=== PATIENT | female | born 1965 | race Caucasian/White ===

== ENCOUNTER 2024-04-22 09:25 | Inpatient (IN) | payer BC, SELFPAY ==
[2024-04-22] VITALS (65 sets, daily range): BP systolic 81–135; BP diastolic 50–79; PULSE 39; BMI 19.4; BMI 21.2
--- NOTE | 2024-04-22 06:16 | ED.GENMED ---
History of Present Illness
General
Chief Complaint: Fever
Source: patient
Exam Limitations: none
Time Seen by Provider: 04/22/24 05:57
Nursing documentation reviewed up to this point in time: agreed with
History of Present Illness
History of Present Illness:
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 Patient states that since starting Tegretol for her underlying trigeminal neuralgia, she started to feel nauseous,
along with body ache and decreased appetite, after taking a new medication for 6 days. After speaking with her maintenance team member, her Tegretol was discontinued and hydrocortisone was increased to twice daily. However, her symptoms have worsened
since then. Patient reports subjective fever and chills. Denies coughing. Denies sore throat. Denies nasal congestion. Denies vomiting or diarrhea. Denies rash. Denies sick contact. Denies recent travel. Patient states that she has had
similar symptoms in the past, most recently 10 years ago.
Past History
Past History
ED Past Medical History: Other (Cleveland's disease)
ED Past Surgical History: None
Social History
Tobacco: Non-smoker
Alcohol: None
Drug: None
Living: with family
Employment: Employed
Family History
Family History: Cancer (Aunt breast cancer in her 50s, sister with breast cancer in her 40s, first cousin with ovarian cancer in her 40s)
Review of Systems
Review of Systems
Allergies reviewed?: Yes
All Other Systems: ROS reviewed and negative except as documented in HPI and ROS
Constitutional: Reports fever and chills
EENT: Reports no symptoms
Respiratory: Reports no symptoms
Cardiac: Reports no symptoms
ABD/GI: Reports nausea; Denies abdominal pain, vomiting or diarrhea
: Reports no symptoms; Denies dysuria or frequency
Musculoskeletal: Reports muscle pain
Skin: Reports no symptoms; Denies rash
Neurological: Reports weakness; Denies dizzy, headache or numbness
Phy Exam
Physical Exam
Physical Exam:
Physical Exam
General: mild distress, not acutely ill. afebrile. tachycardic.
Head: nc/at. eomi
Neck: supple. no meningeal signs. normal posterior pharynx
Heart: tachycardic, no murmur. equal radial pulses.
Lungs: no acute respiratory distress. clear bilaterally
Abdomen: normal bowel sounds. not tender.
Neuro: alert and oriented. no focal neurological deficits
Skin: no rash
Psychiatric: well kept. interactive and cooperative
Extremities: no edema. no calf tenderness.
Sepsis
Sepsis Screening
Sepsis Assessment: Sepsis
Sepsis Screen
Sepsis Screen: Sepsis
Date: 04/22/24
Time: 14:03
Course
Orders/Labs/Results
Orders:
Orders
04/22/24 Breakfast
Regular
At Your Request: Full Participation
04/22/24 06:05
Hydrocortisone Sod Succinate [Solu-Cortef] 100 mg IV NOW STA
04/22/24 06:07
0.9% Sodium Chloride 1000 ml [Nss] 1,000 ml IV BOLUS
04/22/24 06:30
COVID-19 Antigen Urgent
Source: Nasal Swab
Complete Blood Count/With Diff Urgent
Comprehensive Metabolic Panel Urgent
Cortisol, Random Urgent
Magnesium Urgent
TSH Urgent
Troponin I Urgent
04/22/24 07:42
0.9% Sodium Chloride 500 ml [Nss] 500 ml IV BOLUS
04/22/24 07:50
Acetaminophen [Tylenol] 650 mg PO NOW STA
04/22/24 07:55
Blood Culture Urgent
ANA Source: Blood/Venous
Specimen Description:
04/22/24 08:00
0.9% Sodium Chloride 500 ml [Nss] 500 ml IV 100 mls/hr
NORepinephrine 4 MG/250 ML [Levophed] 4 mg in 250 ml IV PER PROTOCOL
Initial dose in mcg/min, then titrate:: 5
Titrate to keep:: SBP > 90 mmHg
Titrate by mcg/min:: 1-2 mcg/min
Frequency of titrations (minutes):: 5
Maximum dose in ICU in mcg/min:: 30
Maximum dose in IMU in mcg/min:: 8
Maximum dose in IVU in mcg/min:: 4
Begin to taper infusion when:: Remained at goal for 4hrs
Taper by mcg/min:: 1-2 mcg/min
Frequency of taper (minutes) if patient maintains goal:: 30
Taper to off?: Yes
If infusion off & no longer maintaining goal:: Contact Provider
04/22/24 08:08
Blood Culture Urgent
AAN Source: Blood/Venous
Specimen Description:
Date Specimen was Collected: 04/22/24
Time Specimen was Collected: 08:06
04/22/24 08:43
Urinalysis Reflex To Culture Urgent
Date Specimen was Collected: 04/22/24
Time Specimen was Collected: 08:33
Urine Microscopic Reflex Cult Urgent
Urine Culture Urgent
ANA Source: U
Specimen Description:
Date Specimen was Collected: 04/22/24
Time Specimen was Collected: 08:33
04/22/24 08:54
CR Chest - 2 Views Stat
Comment:
Reason For Exam: fever
04/22/24 08:55
Admit/Transfer Patient As Directed
Co-Sign Provider:
Level of Care: Inpatient admission
Assign to:: ICU
Physician / Group: Hospitalist
Diagnosis: Adrenal crisis
Reason for Hospitalization: Adrenal crisis
Expected length of stay greater than two midnights?: Yes
ELOS- Estimated Length of Stay in days: 3
I certify the patient meets the requirements for IP care: Yes
04/22/24 08:58
PRN Pain Medication Management As Directed
May give lesser potent ordered pain med per pt: Yes
preference::
Protocol:: Medication orders for pain may be administered in a
manner that supports deferring to patient preference
when the pt is:
- Requesting an ordered lesser potent pain medication.
Least to most potent pain medications are defined
as: acetaminophen < NSAID < tramadol < opioids
(morphine, oxycodone, hydromorphone).
- Requesting a lesser dose of the same medication IF
ORDERED.
- Requesting a less intrusive route of administration
if both routes are prescribed by the provider (PO <
IV).
04/22/24 09:00
Code Status As Directed
Resuscitation Status: Full Code
04/22/24 09:04
0.9% Sodium Chloride 500 ml [Nss] 500 ml IV BOLUS
04/22/24 09:05
Add On- LAB Stat
Tests Added?: lactate
04/22/24 09:18
Lactic Acid Routine
Comment: ADD ON
04/22/24 10:32
ENDOCRINOLOGY CONSULT Routine
Consulting Provider: Maria Elena Paez
Was physician already notified: Yes
INFECTIOUS DISEASE CONSULT Routine
Consulting Provider: Keya Maradiaga
Was physician already notified: Yes
Activity As Directed
Activity Level: With Assistance
Activity As Directed
Activity Level: With Assistance
I&O [Intake/ Output] As Directed
Frequency: q12h
Intake/ Output As Directed
Frequency: Per unit guidelines
Precautions As Directed
Type of Precautions: Other
Comment: fall
Vital Signs As Directed
Frequency: Per unit guidelines
Weight As Directed
Frequency: Daily
DX Deep Vein Thrombosis Video Routine
04/22/24 18:00
Enoxaparin Sodium [Lovenox] 40 mg SC QPM
Abnormal Lab Results
04/22/24 04/22/24 04/22/24
06:30 08:43 09:18
WBC 19.0 H 10^3/uL
(4.8-10.8)
Hct 36.2 L %
(37.0-47.0)
Abs Immat Gran (auto) 0.2 H 10^3/uL
(0-0.05)
Absolute Neuts (auto) 15.0 H 10^3/uL
(1.4-6.5)
Absolute Monos (auto) 2.0 H 10^3/uL
(0.1-0.6)
Immature Gran % 0.8 H %
(0-0.5)
Neutrophils % 79.0 H %
(42.2-75.2)
Lymphocytes % 8.9 L %
(20.5-51.1)
Monocytes % 10.5 H %
(1.7-9.3)
Sodium 128 L mmol/L
(135-145)
Chloride 92 L mmol/L
(98-107)
Lactic Acid 0.6 L mmol/L
(0.7-2.0)
Total Protein 6.1 L g/dl
(6.3-8.2)
Urine Ketones Trace A
(Negative)
Ur Occult Blood Reflex 3+ A
(Negative)
Urine RBC 7-10 A /HPF
(0-2)
Urine Bacteria (Reflex) Many A
(Negative)
04/22/24 06:30
04/22/24 06:30
Vital Signs
Initial and Last Documented VS:
Initial Vital Signs
Temp Pulse Resp BP Pulse Ox
99.5 F 116 24 94/66 96
04/22/24 05:36 04/22/24 05:36 04/22/24 05:36 04/22/24 05:36 04/22/24 05:36
Last Documented Vital Signs
Temp Pulse Resp BP Pulse Ox
98.8 F 67 13 109/66 97
04/22/24 12:00 04/22/24 13:01 04/22/24 13:01 04/22/24 13:01 04/22/24 13:01
MDM/Problems Addressed
MDM/Problems Addressed:
History and exam concerning for likely adrenal crisis. Initial hypotension mildly improved with IV fluids and patient remains mentally competent. Patient will continue to receive IV fluids along with hydrocortisone. Patient will be admitted for
further evaluation and treatment, consideration to address to support, if she remains hypotensive.
Dr. Paez, endocrinology, notified via [place] text. Patient will be admitted to ICU for further evaluation and treatment, including continual treatment via iv hydrocortisone.
Critical care statement: A total of 40 minutes of critical care time was provided for this patient. This includes management of unstable vital signs, evaluation of the patient at bedside, reviewing the patient's pertinent medical records, discussion
with consultants, review of old EKGs and review of pertinent medical records. This time with separate from time utilized to perform the aforementioned documented procedures
*Critical Care Note
Total Time (30-74mins, 75-104mins- exclusive of procedures): 40 min
ED Attending Note
-
Portions of this chart may have been created with voice recognition software.� Occasional wrong word or��sound alike� substitutions may have occurred due to the inherent limitations of voice recognition software.
Discharge Plan
Departure
Patient Disposition: Admit
Date of Disposition: 04/22/24
Time of Disposition: 07:55
Admit to: ICU
Presentation/result/management discussed w/ accepting MD/DO: Hospitalist
Discharge Problem:
Adrenal crisis, Hyponatremia
Interventions
Interventions:
*Risk Screen - Suicide Last Done: 04/22/24 05:36
*General Assessment Last Done: 04/22/24 05:55
*Neglect/Abuse Screening Last Done: 04/22/24 05:40
ED- Fall Risk Assessment Last Done: 04/22/24 05:55
*ED COVID-19 Vaccine History Last Done: 04/22/24 10:45
*Nursing Disposition Last Done: 04/22/24 10:14
ED- Cardiac Assessment Last Done: 04/22/24 05:55
ED- Neurological Assessment Last Done: 04/22/24 05:55
ED- Pulmonary Assessment Last Done: 04/22/24 05:55
ED-Skin Assessment Last Done: 04/22/24 05:55
Discharge Date and Time
Discharge Date/Time: 04/22/24 10:20
[2024-04-22] MEDS: SOLU-CORTEF 100 MG IV ×3 (06:40→19:22)
[2024-04-22] MEDS: NSS 1000 IV (06:40)
[2024-04-22 06:54] LABS: % Basophils 0.2 % (0-2); % Eosinophils 0.6 % (0-6); % Immature Granulocytes 0.8 % (0-0.5); % Lymphocytes 8.9 % (20.5-51.1); % Monocytes 10.5 % (1.7-9.3); Absolute Eosinophils 0.1 10^3/uL (0-0.7); Absolute Immature Granulocytes 0.2 10^3/uL (0-0.05); Absolute Lymphocytes 1.7 10^3/uL (1.2-3.4); Hematocrit 36.2 % (37.0-47.0); Mean Corp Hgb Conc. 35.9 g/dL (33.0-37.0); Mean Corpuscular Hgb 30.2 pg (27.0-31.0); Mean Platelet Volume 8.5 fL (7.4-10.4); Nucleated Red Blood Cells % 0 %; Platelet Count 314 10^3/uL (130-400); Red Blood Cell Count 4.31 10^6/uL (4.20-5.40); Red Cell Dist. Width 12.4 % (11.5-14.5)
[2024-04-22 07:15] LABS: ALT (SGPT) 19 U/L (0-35); AST (SGOT) 20 U/L (14-36); Albumin 3.9 g/dl (3.5-5.0); Alkaline Phosphatase 69 U/L (38-126); Blood Urea Nitrogen 9 mg/dl (7-17); Calcium 8.9 mg/dl (8.4-10.2); Carbon Dioxide 22 mmol/L (22-30); Chloride 92 mmol/L (98-107); Estimated Creatinine Clearance 77 ml/min; Glucose 77 mg/dl (70-99); Magnesium 1.9 mg/dl (1.6-2.3); Potassium 3.8 mmol/L (3.5-5.1); Sodium 128 mmol/L (135-145); Total Bilirubin 0.7 mg/dl (0.2-1.3); Total Protein 6.1 g/dl (6.3-8.2); eGFR > 60.00
[2024-04-22 07:26] LABS: Troponin I < 0.012 ng/ml
[2024-04-22 07:35] LABS: COVID-19 Antigen Negative (Negative)
[2024-04-22 07:46] LABS: Glucose - Point of Care 77 mg/dl (70-99)
[2024-04-22 07:48] LABS: Cortisol, Random 1.8 ug/dl; TSH 1.46 uIU/ml (0.47-4.68)
[2024-04-22] MEDS: NSS 500 IV ×5 (07:57→17:42)
[2024-04-22] MEDS: TYLENOL 650 MG PO ×2 (07:58→17:48)
[2024-04-22] MEDS: LEVOPHED 250 IV ×2 (08:17→19:52)
[2024-04-22 08:51] LABS: Urine Albumin Negative (Neg - Trace); Urine Bilirubin Negative (Negative); Urine Character Clear (Clear); Urine Color Yellow; Urine Glucose Negative (Negative); Urine Ketone Trace (Negative); Urine Leukocyte Negative (Negative); Urine Nitrite Negative (Negative); Urine Occult Blood 3+ (Negative); Urine Specific Gravity 1.005 (<1.030); Urine Urobilinogen Negative (Neg - 1+)
[2024-04-22 08:59] LABS: Urine Squamous Cell >30 /LPF (Few)
[2024-04-22 09:01] LABS: Urine Bacteria Many (Negative)
--- NOTE | 2024-04-22 09:19 | HPS.HSE ---
Addendum entered and electronically signed by Keven High MD 04/22/24 12:16:
58, female, history of Jassi's disease along with trigeminal neuralgia now presenting with worsening nausea, generalized decreased appetite, subjective fevers and headaches. States for the last couple of days she has felt very irregular for
decreased because of the above symptoms. She spoke with outpatient rhic systems safety engineer that recommended increase in hydrocortisone but symptoms continue to worsen. Should be noted she also had a fever today. She is found to be hypotensive with a
cortisol of 1.8.
Septic shock continue pressors follow-up on blood cultures provide broad-spectrum antibiotics consult infectious diseases as immunocompromise.
Adrenal crisis. Started on pressor support. Additionally was loaded with 100 mg of IV hydrocortisone with continuation of hydrocortisone. Can check ACTH level. Follow-up on sodium and potassium. Consult Endo.
Hyponatremia likely related to adrenal crisis lack of sodium resorption. Euvolemic/hypovolemic on exam. Will fluid restrict. With saying that she did get 30 cc/kg of IV fluids in the ER. Can check urine sodium urine creatinine and urine awesome
along with serum awesome
Original Note:
Family Physician
-
Family Physician: Cynthia Cornell
Chief Complaint
-
Concern for adrenal crisis
History of Present Illness
58 year-old female with history of, trigeminal neuralgia, who presented to the ED with worsening nausea, generalized decreased appetite/p.o. intake, upset stomach, subjective fever and chills which all started when she started taking Tegretol for
trigeminal neuralgia 6 days ago. Her last meal was 3 days ago and she has been unable to get out of bed for the past few days. She spoke to her rhic systems safety engineer, Dr. Cornell who increased her hydrocortisone from 20mg AM/10mg PM to 40mg
AM/20mg/PM. Unfortunately, symptoms continued to worsen. She states that her symptoms are similar to previous crisis.
She had had nonspecific stomach upset with two loose, non-bloody stools 2 days ago. But denies sore throat, cough, nasal congestion, vomiting, diarrhea,rash, back pain, urinary symptoms, sick contacts, recent travel or recent illness.
She was hypotensive in the ED, tachypneic, and febrile in the ED. IVF resuscitation was administered and Levophed was started in the ED
Medical History
Past Medical History
Past Medical History: Reports Other (jassi's disease, trigeminal neuralgia)
Past Surgical History: Reports None
Social History
Tobacco: Non-smoker
Alcohol: None
Drug: None
Living: With Family
Employment: Employed
Family History
Family History: Cancer (Aunt breast cancer in her 50s, sister with breast cancer in her 40s, first cousin with ovarian cancer in her 40s)
Allergies / Home Medications
Allergies reflects when Allergies were last updated in [facility].
Home Medications with original date entered in [facility]
Allergy/Medication List:
Allergies
Allergy/AdvReac Type Severity Reaction Status Date / Time
Penicillins Allergy stiff Verified 04/22/24 05:40
neck/LIAO
Home Medications
hydrocortisone 10 mg tablet 20 mg PO DAILY 05/14/17
hydrocortisone 10 mg tablet 10 mg PO QPM 04/22/24
Review of Systems
-
History Source: Patient
Constitutional: Reports Fever, Fatigue and Chills
EENT: Denies Sore Throat or Runny Nose
Respiratory: Denies Cough or Trouble Breathing
Cardiac: Reports Palpitations; Denies Chest Pain
Abdomen/GI: Reports Nausea and Anorexia; Denies Abdominal Pain, Vomiting, Diarrhea or Bloody Stools
: Denies Dysuria, Frequency, Flank Pain, Incontinence, Difficulty Voiding or Bleeding
Musculoskeletal: Reports Other (generalized aches); Denies Joint Pain
Skin: Denies Rash
Neurological: Reports Headache
Physical Exam
Vital Signs
Vital Signs
Temp Pulse Resp BP Pulse Ox
101.2 F H 84 29 95/62 94
10/07/24 07:48 04/22/24 08:50 04/22/24 08:50 04/22/24 08:50 04/22/24 08:30
Physical Exam
General: Well Developed, No Apparent Distress and Comfortable
HEENT: NormoCephalic, Anicteric, Moist mucous membranes and Atraumatic; No Thrush or Pharyngeal Erythema
Respiratory: Clear and Non Labored Respirations; No Wheezes, Rales, Rhonchi or Crackles
Cardiac: S1/S2, Regular Rhythm and Tachycardia; No Murmur, Rub or Peripheral Edema
GI: Soft, Non Tender, Non Distended, Normal Bowel Sounds and No Hepatosplenomegaly
Genito-urinary: Clear Urine and No costovertebral tender; No Bloody Urine
Musculoskeletal: No Cyanosis and No Edema
Skin: Warm and Dry
Neuro: Awake and Alert
Psych: Calm
Laboratory Results
-
04/22/24 06:30
04/22/24 06:30
Laboratory Results
Total Bilirubin 0.7 mg/dl (0.2-1.3) 04/22/24 06:30
AST 20 U/L (14-36) 04/22/24 06:30
ALT 19 U/L (0-35) 04/22/24 06:30
Alkaline Phosphatase 69 U/L (38-126) 04/22/24 06:30
Troponin I < 0.012 ng/ml 04/22/24 06:30
Impression/Plan
-
IMPRESSION: 89 year old female with hx of Shannon's disease who presents with septic shock/Adrenal crisis.
PLAN:
Adrenal crisis:
Hx of Shannon's disease, on hydrocortisone.
Hyponatremic 128, random cortisol 1.8, normal TSH
- Continue IV Hydrocortisone
- Continue Levophed and wean as tolerated
- Monitor electrolytes
- Admit to ICU
- Endocrinology consult
Septic shock:
meets SIRS criteria: tachypnea, tachycardia, leukocytosis with left shift, fever.
Hypotension requiring pressors.
Negative covid. Lactate 0.6
- Awaiting blood cultures, urinalysis + Cx
- will get chest x-ray
- Continue fluid resuscitation, Levophed and wean as tolerated
- Begin empiric ABX
- Infectious disease consult
DVT ppx: Lovenox
Diet: Regular
Code Status: Full Code
--- NOTE | 2024-04-22 09:25 | CON.ID ---
Consultation
-
Date/Time Consultation Requested: 04/22/2024914
Date/Time Consultation Performed: 04/22/2024929
Requesting Provider: Dr. Ayah Ventura
Performing Provider: Dr. Keya Maradiaga
Reason for Consultation: Adrenal insufficiency/septic shock
Chief Complaint / Past History
Chief Complaint
Weakness, dizziness, chills
History of Present Illness
ms Kemp is a 58 year old female with adrenal insufficiency on chronic hydrocortisone who presented to ED this morning due to not feeling well. She was recently diagnosed with left trigeminal neuralgia at [facility] and was started on
carbamazepine about a week ago. She then developed poor appetite, nausea, myalgias. Tegretol was discontinued 04/19 and hydrocortisone increased to bid. However, she continued to feel poorly. Positive chills. No fever at home. +lightheadedness,
weakness. She tried pushing fluid and had 1 episode of emesis. No ill contacts. No travel. In ED, T=101.2, wbc 19, hypotensive BP 82/55Na 128, CXR neg. No diarrhea. No dysuria. No cough. +LIAO back of neck. No sinus congestion/sorethroat. No rash.
Appetite better.
Past History
Additional Past Medical History:
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
Secondary hypothyroidism
Trigeminal neuralgia
HLD
Interstitial cystitis
Migraines
Osteoporosis
Anxiety
Allergy History:
Penicillins Allergy (Verified 04/22/24 05:40)
stiff neck/LIAO
Medications Reviewed: Yes
Current Antibiotics:
none
Social History
Tobacco: Non-Smoker
Alcohol: None
Drug: None
Living: With Family
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
Family History
Family History: Not Pertinent
Review of Systems
Review of Systems
General: Chills and Change in Appetite
HEENT: Negative Stiff Neck, Sinus Problems or Pharyngitis
Cardiovascular: Negative Chest Pain or Dyspnea
Respiratory: Negative Dyspnea or Cough
Gasteroenterology: Nausea
Genital / Urological: Negative Dysuria or Flank Pain
Endocrine: Weakness
Musculoskeletal: Myalgias
Skin / Hair / Nails: Negative Rash
Neurological: Dizziness
All systems: All other systems were reviewed and were negative
Vital Signs
Temp Pulse Resp BP Pulse Ox
101.2 F H 84 29 95/62 94
04/22/24 07:48 04/22/24 08:50 04/22/24 08:50 04/22/24 08:50 04/22/24 08:30
Physical Exam
Physical Exam
Constitutional: No Acute Distress and Comfortable
Head: Other (No frontal or maxillary sinus tenderness)
Eyes: No Conjunctival Hemorrhage and Sclera Anicteric
Pharynx: Benign
Oral: No Thrush
Cardiovascular: Regular Rate and S1/S2
Pulmonary: Clear
Gastrointestinal: Soft, Non Tender, Non Distended and Normal Bowel Sounds
Genito-Urinary: Negative CVA Tenderness
Extremities: Edema (trace ankle edema bilaterally)
Neurological: AO x 3
Lab / Diagnostic Study Results
04/22/24 06:30
04/22/24 06:30
Abs Immat Gran (auto) 0.2 10^3/uL (0-0.05) H 04/22/24 06:30
Absolute Neuts (auto) 15.0 10^3/uL (1.4-6.5) H 04/22/24 06:30
Absolute Lymphs (auto) 1.7 10^3/uL (1.2-3.4) 04/22/24 06:30
Absolute Monos (auto) 2.0 10^3/uL (0.1-0.6) H 04/22/24 06:30
Absolute Basos (auto) 0.0 10^3/uL (0-0.2) 04/22/24 06:30
Immature Gran % 0.8 % (0-0.5) H 04/22/24 06:30
Neutrophils % 79.0 % (42.2-75.2) H 04/22/24 06:30
Lymphocytes % 8.9 % (20.5-51.1) L 04/22/24 06:30
Monocytes % 10.5 % (1.7-9.3) H 04/22/24 06:30
Eosinophils % 0.6 % (0-6) 04/22/24 06:30
Basophils % 0.2 % (0-2) 04/22/24 06:30
Ur Squamous Epith Cells >30 /LPF (Few) 04/22/24 08:43
Microbiology Results
Micro:
04/22/24 08:43 Urine Culture - Pending
Urine
04/22/24 08:08 Blood Culture - Pending
Blood/Venous
04/22/24 07:55 Blood Culture - Pending
Blood/Venous
04/22/24 CXR: No radiographic evidence of acute cardiopulmonary abnormality.
Assessment / Plan
# Adrenal crisis with hypotension
# Fever - likely due to adrenal crises
# leukocytosis - possibly due to increase steroid dose
# Hyponatremia
# Carbamazepine intolerance
- UA neg pyuria, CXR neg.
- Blood cx's pending
- Start empiric cefepime. Once infection ruled out, can dc abx.
# Conditions SPONSORSHIP COORDINATOR
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
Trigeminal neuralgia
HLD
Interstitial cystitis
Migraines
Osteoporosis
Anxiety
[2024-04-22 09:35] LABS: Lactic Acid 0.6 mmol/L (0.7-2.0)
[2024-04-22 11:41] LABS: INR 1.21; PT 15.1 Sec (11.4-14.6)
[2024-04-22 11:42] LABS: APTT 31.1 Sec (23.4-35.0)
[2024-04-22] MEDS: MAXIPIME 1000 MG IV ×2 (12:57→19:19)
[2024-04-22] MEDS: STERILE WATER FOR INJECTION 10 ML IV ×2 (12:57→19:22)
--- NOTE | 2024-04-22 13:26 | CON.INTV ---
Consultation
Consultation Request
Date/Time Consultation Requested: 04/22/2024
Date/Time Consultation Performed: 04/22/2020
Requesting Provider: Dr. High
Performing Provider: Dr. Cooper Abrams
Reason for Consultation: Shock/adrenal crisis
Medical History
-
History of Present Illness:
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 At the direction of the iron molder helper patient increase her hydrocortisone but
continued to have symptoms. Patient reported fever prior admission. Found to be hypotensive, cortisol level random was 1.8.
Patient started on vasopressors, broad-spectrum antibiotics, culture sent.
Started on IV stress doses of corticosteroids.
She also was found to be hyponatremic likely due to adrenal insufficiency.
Denies cough, phlegm production.
Denies GI or symptoms per
Denies rash
Past Medical History
Past Medical History: Other ( see assessment and plan)
Social History
Tobacco: Non-smoker
Alcohol: None
Drug: None
Living: With Family
Employment: Employed
Family History
Family History: Reviewed & Not Pertinent
Allergies / Home Medications
Allergies
Allergy/AdvReac Type Severity Reaction Status Date / Time
Penicillins Allergy stiff Verified 04/22/24 05:40
neck/LIAO
Home Medications
�Medication �Instructions �Recorded �Confirmed �Last Taken �Type
hydrocortisone 10 mg tablet 20 mg PO DAILY 05/14/17 04/22/24 04/21/24 History
hydrocortisone 10 mg tablet 10 mg PO QPM 04/22/24 04/22/24 04/21/24 History
Review of Systems
-
History Source: Patient
All other systems: Negative unless noted
Vitals / Labs / Diagnostic Testing
Vital Signs
Temp Pulse Resp BP Pulse Ox
98.8 F 67 13 109/66 97
04/22/24 12:00 04/22/24 13:01 04/22/24 13:01 04/22/24 13:01 04/22/24 13:01
Lab Data
04/22/24 06:30
04/22/24 06:30
Laboratory Results
04/22/24
11:05
PT 15.1 H
INR 1.21
APTT 31.1
Diagnostic Testing:
Physical Exam
-
HEENT: Normocephalic
Cardiovascular: S1/S2
Respiratory: Non-Labored Respirations
GI: Non Distended
Neurology: Awake, AO x 3 and No Motor Deficits
Skin: Warm
General: Comfortable
Assessment
-
58-year-old woman with history of Vardaman's disease, admitted with a few days of nausea, vomiting fatigue and decreased appetite.
Denies any urinary or problems. Has not been able to eat much. Found to be febrile, with leukocytosis and hypotensive. Cortisol random in the emergency room is 1.8.
Shock: Possibly septic/adrenal crisis
Random cortisol 1.8
Normal TSH
Fever/leukocytosis
Possible UTI: Abnormal UA
Chest x-ray is clear, reviewed
hyponatremia
Conditions present prior admission:
Vardaman's disease diagnosed many years ago.
Trigeminal neuralgia
Assessment and plan:
Critically ill requiring vasopressors: Shock likely multiple mechanisms sepsis and adrenal insufficiency.
Abnormal UA: Suspected UTI
Cultures were sent
Antibiotics started
Follow renal function and white blood cells
-
Continue Levophed to target systolic blood pressure 65 mmHg or higher
Lactic acid is normal
Renal function is normal
Rhodes urinary output
Status post adequate fluid resuscitation
Encourage oral intake
Complete additional 1 L of normal saline.
-
Hydrocortisone IV stress doses given
Follow blood sugars
Endocrinology has been consulted as well
-
Likely hyponatremia to improve with treatment of adrenal insufficiency
Follow BMP later
-
DVT prophylaxis with Lovenox
-
Diet as able
-
Critical care statement: A total of 33minutes of critical care time was provided for this patient today. This includes management of unstable vital signs, evaluation of the patient at bedside, reviewing the patient's pertinent medical records
including radiographs, microbiology, laboratory evaluations and discussion with primary team, critical care nursing, and respiratory therapy.
[2024-04-22] MEDS: LOVENOX 40 MG SC (17:42)
[2024-04-22] MEDS: MELATONIN 5 MG PO (21:46)
--- NOTE | 2024-04-22 21:56 | PTCARENOTE ---
Assumed care of pt. approx. 1900.
On low dose Norepi for a SBP goal 90>. See flowsheets for details.
No neurological deficits, focally intact, Normocephalic/Atraumatic.
Sinus ailyn w/o ectopy, Normothermic, no edema.
All care/plan of care explained to patient.
[2024-04-22] MEDS: DOPamine 400 MG 250 IV (23:48)
--- NOTE | 2024-04-22 23:53 | PTCARENOTE ---
Pt. noted to be bradycardic 39-42 on monitor w/ ectopy noted.
Bedside EKG performed, Norepi D/C --> switch to Dopamine. See titration flowsheet.
Neuro status remains fully intact.
[2024-04-23] VITALS (26 sets, daily range): BP systolic 83–127; BP diastolic 51–83; BMI 21.9
[2024-04-23] MEDS: NSS IV (00:06)
[2024-04-23 00:26] LABS: Glucose - Point of Care 162 mg/dl (70-99)
[2024-04-23] MEDS: SOLU-CORTEF 100 MG IV ×2 (03:32→07:57)
[2024-04-23] MEDS: STERILE WATER FOR INJECTION 10 ML IV ×2 (03:33→11:35)
[2024-04-23] MEDS: MAXIPIME 1000 MG IV ×2 (03:33→11:35)
[2024-04-23 03:45] LABS: Hematocrit 33.7 % (37.0-47.0); Mean Corp Hgb Conc. 35.6 g/dL (33.0-37.0); Mean Corpuscular Hgb 30.2 pg (27.0-31.0); Mean Corpuscular Volume 84.7 fL (81.0-99.0); Mean Platelet Volume 8.4 fL (7.4-10.4); Platelet Count 306 10^3/uL (130-400); Red Blood Cell Count 3.98 10^6/uL (4.20-5.40); Red Cell Dist. Width 12.4 % (11.5-14.5); White Blood Cell Count 18.7 10^3/uL (4.8-10.8)
--- NOTE | 2024-04-23 03:50 | PTCARENOTE ---
Pt. complaining of IV site discomfort, burning sensation. IV removed and new site placed. IV site has no evidence of streaking, infiltration, phlebitis, or extravasation.
Pt. remains on dopamine 5mcg, NSR 55-70 w/o ectopy. SBP maintained above 90.
[2024-04-23 04:13] LABS: Blood Urea Nitrogen 6 mg/dl (7-17); Calcium 8.5 mg/dl (8.4-10.2); Carbon Dioxide 19 mmol/L (22-30); Chloride 105 mmol/L (98-107); Estimated Creatinine Clearance 87 ml/min; Glucose 151 mg/dl (70-99); Magnesium 2.1 mg/dl (1.6-2.3); Potassium 3.9 mmol/L (3.5-5.1); Sodium 137 mmol/L (135-145); eGFR > 60.00
[2024-04-23 04:16] LABS: Procalcitonin 4.69 ng/ml (0.0-0.25)
[2024-04-23] MEDS: TYLENOL 650 MG PO (05:00)
[2024-04-23] MEDS: NSS 1000 IV (07:56)
--- NOTE | 2024-04-23 09:52 | CM ---
Patient seen at bedside with sister present. Patient lives with and adult disabled son in a 2 story home. patient PCP was Dr. Latif but now looking for new PCP, CM will provide information for patient on residency clinic. Patient uses
the [facility] in [facility] and Patent has no DME at home for herself. Patient plan is for discharge home with no needs anticipated. CM will continue to follow for discharge planning needs.
Plan; home with follow up at residency clinic
--- NOTE | 2024-04-23 11:02 | W.PN.HOSP.TC ---
Addendum entered and electronically signed by Keven High MD 04/23/24 17:57:
58, female, history of Jassi's disease along with trigeminal neuralgia now presenting with worsening nausea, generalized decreased appetite, subjective fevers and headaches. States for the last couple of days she has felt very irregular for
decreased because of the above symptoms. She spoke with outpatient senior computer specialist that recommended increase in hydrocortisone but symptoms continue to worsen. Should be noted she also had a fever today. She is found to be hypotensive with a
cortisol of 1.8.
Septic shock, weaned off of pressors, per ID will DC atb as no uti sumtpoms and bcx negative. Therefore, for now monitor off of antibiotics.
Adrenal crisis. Weaned off of pressors. Additionally was loaded with 100 mg of IV hydrocortisone with continuation of hydrocortisone. Can check ACTH level. Follow-up on sodium and potassium. Consult Endo.
Hyponatremia likely related to adrenal crisis lack of sodium resorption. Euvolemic/hypovolemic on exam. Will fluid restrict. With saying that she did get 30 cc/kg of IV fluids in the ER. Can check urine sodium urine creatinine and urine awesome
along with serum awesome
Original Note:
Today's Communication/Plan
-
Continue IV abx.
Follow WBC and temperature curve.
IVF
Monitor BP and electrolyte
IV hydrocortisone taper: 50mg Q8h
Assessment / Plan
Assessment / Plan
IMPRESSION: 89 year old female with hx of Flora's disease who presents with septic shock/Adrenal crisis.
PLAN:
Adrenal crisis:
Hx of Flora's disease, on hydrocortisone.
On arrival, hypotensive, Hyponatremic 128, random cortisol 1.8, normal TSH. Na normalized 137
- Continue IV Hydrocortisone, wean per Endo recs
- Weaned off Dopamine drip this AM. Follow vitals closely
- Monitor electrolytes
- Appreciate endo input
Septic shock:
meets SIRS criteria: tachypnea, tachycardia, leukocytosis with left shift, fever.
Hypotension requiring pressors. Weaned off Dopamine
Negative covid. Lactate 0.6. CXR with no acute process. Afebrile overnight
- Continue Cefepime pending blood cultures, urine Cx
- Continue maintenance IVF
- Appreciate ID recs
DVT ppx: Lovenox
Diet: Regular
Code Status: Full Code
Anticipated Discharge: 24 - 48 hours
Subjective/Interval History
-
Date of Service: April 23, 2024
IV site discomfort/burning overnight. Site changed, with no further complaints.
Bradycardic overnight 39-42 bpm. Levophed switched to Dopamine.
Objective Data
-
Labs:
Laboratory Results
04/23/24
03:33
WBC 18.7 H
Hgb 12.0
Hct 33.7 L
Plt Count 306
Sodium 137 D
Potassium 3.9
Chloride 105
Carbon Dioxide 19 L
BUN 6 L
Creatinine 0.5 L
Glucose 151 H
Calcium 8.5
Vital Signs:
Vital Signs
Temp Pulse Resp BP Pulse Ox
98.2 F 81 25 99/67 97
04/23/24 08:00 04/23/24 09:48 04/23/24 09:48 04/23/24 09:48 04/23/24 05:14
I&O
04/22/24 04/23/24 04/24/24
06:59 06:59 06:59
Intake Total 2197.3 / 2197.3 100 / 100
Output Total 1900 / 1900
Balance 297.3 / 297.3 100 / 100
Review of Systems
-
History Source: Patient
Constitutional: Reports Other (appetite improved); Denies Fever, Fatigue or Chills
Respiratory: Denies Cough or Trouble Breathing
Cardiac: Denies Chest Pain or Syncope
Abdomen/GI: Denies Abdominal Pain, Nausea, Vomiting, Diarrhea or Constipated
Genitourinary: Denies Dysuria, Flank Pain, Incontinence or Difficulty Voiding
Musculoskeletal: Denies Joint Pain or Myalgias
Neuro: Reports Headache; Denies Dizzy
Physical Exam
-
General: Well Nourished, No Apparent Distress and Comfortable
HEENT: Normocephalic, Atraumatic, Moist Mucous Membranes and Anicteric
Respiratory: Clear to Auscultation and Non Labored Respirations; Negative Wheezes, Rales, Rhonchi or Crackles
Cardiac: Regular Rhythm and S1/S2; Negative Murmur, Rub or Calf Tenderness
GI: Soft, Nontender, Nondistended and Normal Bowel Sounds
Musculoskeletal: No Cyanosis and No Edema
Skin: Warm and Dry
Neuro: Awake and Alert
Psych: Calm
--- NOTE | 2024-04-23 11:42 | W.PN.ID1 ---
Date of Service
Date of Service: April 23, 2024
Today's Communication
DC abx.
Assessment / Plan
# Adrenal crisis with hypotension, improving on steroid
# Fever - likely due to adrenal crises, resolved
# leukocytosis - due to increase steroid dose
# Hyponatremia
# Carbamazepine intolerance
- E. coli bacteruria. No urine sxs. UA neg nitirite, LE, and pyuria. >30 sq epith - no clean catch specimen.
No indication for abx.
- Blood cx's neg x 24h
-CXR
- DC cefepime.
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
Trigeminal neuralgia
HLD
Interstitial cystitis
Migraines
Osteoporosis
Anxiety
Chief Complaint
-: Fever and Leukocytosis
Subjective / Review of Systems
Feels good today.
Vital Signs / Physical Exam
Vital Signs
Vital Signs
Temp Pulse Resp BP Pulse Ox
98.2 F 81 25 99/67 97
04/23/24 08:00 04/23/24 09:48 04/23/24 09:48 04/23/24 09:48 04/23/24 05:14
Physical Exam
Constitutional: No Acute Distress
Pulmonary: Clear
Gastrointestinal: Soft, Non Tender and Non Distended
Extremities: Negative Edema
Neurological: AO x 3
Objective Data
Lab Data
Lab Results
04/23/24 03:33
04/23/24 03:33
PT 15.1 Sec (11.4-14.6) H 04/22/24 11:05
INR 1.21 04/22/24 11:05
APTT 31.1 Sec (23.4-35.0) 04/22/24 11:05
Estimated Creat Clear 87 ml/min 04/23/24 03:33
Lactic Acid Cancelled 04/22/24 22:32
Total Bilirubin 0.7 mg/dl (0.2-1.3) 04/22/24 06:30
AST 20 U/L (14-36) 04/22/24 06:30
ALT 19 U/L (0-35) 04/22/24 06:30
Alkaline Phosphatase 69 U/L (38-126) 04/22/24 06:30
Most recent labs reviewed.
Micro Results:
04/22/24 08:43 Urine Culture - Preliminary
Urine Escherichia coli
04/22/24 08:08 Blood Culture - Preliminary
Blood/Venous No Growth in 24 hours- Final report to follow
04/22/24 07:55 Blood Culture - Preliminary
Blood/Venous No Growth in 24 hours- Final report to follow
04/22/24 CXR: No radiographic evidence of acute cardiopulmonary abnormality.
--- NOTE | 2024-04-23 11:46 | PTCARENOTE ---
Pt offers no complaints. Ambulating in room with steady gait. Reports improved appetite.
--- NOTE | 2024-04-23 12:08 | W.PN.INTV ---
Today's Communication / Plan
Recommendations
Observe off antibiotics
Decrease hydrocortisone
Transfer to telemetry
Sign off
Assessment
-
58-year-old woman with history of Soddy Daisy's disease, admitted with a few days of nausea, vomiting fatigue and decreased appetite.
Denies any urinary or problems. Has not been able to eat much. Found to be febrile, with leukocytosis and hypotensive. Cortisol random in the emergency room is 1.8.
Shock: Possibly septic/adrenal crisis
Random cortisol 1.8
Normal TSH
Fever/leukocytosis
Possible UTI: Abnormal UA
Chest x-ray is clear, reviewed
hyponatremia
Conditions present prior admission:
Jassi's disease diagnosed many years ago.
Trigeminal neuralgia
Assessment and plan:
Vasopressors discontinued
Afebrile
Clinically improved
Urine culture with E. coli but UA not impressive. Possibly bacteriuria.
Defer to infectious disease antibiotics
Chest x-ray is clear
No other signs of infection.
-
Last night with some bradycardia, currently resolved.
Off vasopressors
Ambulatory to restroom without dizziness
Status post IV fluid resuscitation. Discontinue IV fluid
-
IV hydrocortisone, taper per primary team
-
Likely hyponatremia resolved
Normal renal function and electrolytes on today's BMP
-
DVT prophylaxis with Lovenox
-
Transferred to telemetry. Critical care team will sign off. Please call pulmonary if any respiratory issues arise.
Subjective Dataa
Subjective Data
Date of Service:
Date of Service: April 23, 2024
Chief Complaint: Log Feeder Follow Up (Shock/adrenal crisis/UTI)
Subjective:
Feels better
Denies any dizziness
Denies any abdominal pain
Was able to ambulate to the restroom
Last night with bradycardia, dopamine has been discontinued.
Review of Systems
General: Fever (n)
Cardiopulmonary: Dyspnea (none at rest)
GI: Abdominal Pain (n)
Neuro: Headache (n)
Objective Data
Data Reviewed
Vital Signs / I&O / Oxygen:
Vital Signs
Temp Pulse Resp BP Pulse Ox
98.2 F 65 11 91/65 97
04/23/24 08:00 04/23/24 11:45 04/23/24 10:30 04/23/24 10:30 04/23/24 05:14
Intake and Output
04/22/24 04/23/24 04/24/24
06:59 06:59 06:59
Intake Total 2197.3 / 2197.3 100 / 100
Output Total 1900 / 1900
Balance 297.3 / 297.3 100 / 100
SaO2 97
Physical Exam
General: Respiratory Distress (n) and Comfortable
HEENT: Normocephalic
Cardiovascular: S1-S2
Respiratory: Clear and Non-Labored Respirations
GI: Soft and Non Distended
Neurology: Awake, Alert, AO x 3 and No Motor Deficits
Skin: Warm
Labs/Micro/Reports
Lab Data
04/23/24 03:33
04/23/24 03:33
Microbiology
04/22/24 08:43 Urine Urine Culture - Preliminary
Escherichia coli
04/22/24 08:08 Blood/Venous Blood Culture - Preliminary
No Growth in 24 hours- Final report to follow
04/22/24 07:55 Blood/Venous Blood Culture - Preliminary
No Growth in 24 hours- Final report to follow
[2024-04-23] MEDS: SOLU-CORTEF 50 MG IV ×2 (16:28→23:04)
[2024-04-23] MEDS: LOVENOX 40 MG SC (17:49)
[2024-04-23] MEDS: MELATONIN PO ×2 (22:22→23:00)
[2024-04-23] MEDS: MELATONIN 10 MG PO (23:02)
[2024-04-24 03:00] VITALS: BP 102/84
[2024-04-24 06:00] VITALS: BMI 21.8
[2024-04-24 07:00] LABS: Hematocrit 31.5 % (37.0-47.0); Hemoglobin 11.2 g/dL (12.0-16.0); Mean Corp Hgb Conc. 35.6 g/dL (33.0-37.0); Mean Corpuscular Hgb 30.1 pg (27.0-31.0); Mean Corpuscular Volume 84.7 fL (81.0-99.0); Mean Platelet Volume 8.8 fL (7.4-10.4); Platelet Count 326 10^3/uL (130-400); Red Blood Cell Count 3.72 10^6/uL (4.20-5.40); Red Cell Dist. Width 12.7 % (11.5-14.5)
[2024-04-24 07:52] VITALS: BP 115/70
[2024-04-24 09:41] LABS: Blood Urea Nitrogen 10 mg/dl (7-17); Calcium 8.5 mg/dl (8.4-10.2); Carbon Dioxide 21 mmol/L (22-30); Chloride 103 mmol/L (98-107); Estimated Creatinine Clearance 87 ml/min; Glucose 102 mg/dl (70-99); Potassium 3.5 mmol/L (3.5-5.1); Sodium 136 mmol/L (135-145); eGFR > 60.00
[2024-04-24] MEDS: SOLU-CORTEF 50 MG IV (10:54)
[2024-04-24] MEDS: MIRALAX 17 GRAMS PO (11:13)
[2024-04-24 11:43] VITALS: BP 96/64
--- NOTE | 2024-04-24 12:08 | W.PN.HOSP.TC ---
Addendum entered and electronically signed by Keven High MD 04/25/24 18:36:
septic shock
Addendum entered and electronically signed by Keven High MD 04/24/24 13:21:
Plan to DC home on hydrocort 20mg AM and in the afternoon per Endo recs that we received over [employer] to Dr. Dejesus
Will need to follow up with outpatient endocrinology
No further fevers
No indication for continued antibiotics per ID.
-No UTI symptoms. Therefore, this EColi culture is likely contamination/colonization
More than 30 minutes spent in discharge including
Final examination of the patient
Summarizing hospital stay
Instructions for continuing care to all relevant caregivers
Preparation of discharge records, prescriptions, and referral forms
Total time spent (in minutes): 33mins
Original Note:
Today's Communication/Plan
-
Discharge planning. DC on PO hydrocortisone 20mg BID in the morning and afternoon. Close follow up with outpt securities consultant upon discharge.
Assessment / Plan
Assessment / Plan
IMPRESSION: 89 year old female with hx of Perkins's disease who presents with septic shock/Adrenal crisis.
PLAN:
Shock:
Likely from Adrenal crisis vs septic shock 2/2 UTI
Hx of Perkins's disease, on hydrocortisone.
Met SIRS criteria on arrival: tachypnea, tachycardia, leukocytosis with left shift, fever. Negative covid. Lactate 0.6. CXR with no acute process.
Blood cxs no growth. Urine Cx: E. coli
On arrival, hypotensive, Hyponatremic 128, random cortisol 1.8, normal TSH. Na normalized, K+ stable
- Blood pressure remained stable off pressors
- Weaning IV hydrocortisone per Endo recs, DC on oral therapy. Close follow up with pt's outpt securities consultant
- Abx discontinued yesterday. No fever, continued clinical improvement off abx.
- Appreciate endo and ID input
Asymptomatic bacteriuria:
Urine culture -> E. coli
- Received 2 doses of cefepime
- Denies urinary symptoms.
- appreciate ID recs
Trigeminal neuralgia:
- stable, patient declines pain management
DVT ppx: Lovenox
Diet: Regular
Code Status: Full Code
Anticipated Discharge: Today
Subjective/Interval History
-
Date of Service: April 24, 2024
No acute overnight events.
Pt is insistent on being discharged today. She explains that being on this floor has caused her some emotional stress and she fears a relapse into adrenal crisis because emotional stress is a known crisis precipitant for her.
Objective Data
-
Labs:
Laboratory Results
04/24/24
06:31
WBC 15.0 H
Hgb 11.2 L
Hct 31.5 L
Plt Count 326
Sodium 136
Potassium 3.5
Chloride 103
Carbon Dioxide 21 L
BUN 10
Creatinine 0.6
Glucose 102 H
Calcium 8.5
Vital Signs:
Vital Signs
Temp Pulse Resp BP Pulse Ox
98.1 F 83 16 96/64 96
04/24/24 11:43 04/24/24 11:43 04/24/24 11:43 04/24/24 11:43 04/24/24 11:43
I&O
04/23/24 04/24/24 04/25/24
06:59 06:59 06:59
Intake Total 2197.3 / 2197.3 253 / 2530
Output Total 1900 / 1900 300 / 300
Balance 297.3 / 297.3 2229
Review of Systems
-
History Source: Patient
Constitutional: Reports Other (improved appetite); Denies Fever or Chills
Respiratory: Denies Trouble Breathing
Cardiac: Denies Chest Pain or Palpitations
Abdomen/GI: Reports Constipated; Denies Abdominal Pain, Nausea or Diarrhea
Genitourinary: Denies Dysuria, Frequency, Difficulty Voiding or Bleeding
Neuro: Denies Dizzy, Headache or Lightheadedness
Physical Exam
-
General: Well Developed, Well Nourished, No Apparent Distress and Comfortable
HEENT: Normocephalic, Atraumatic and Moist Mucous Membranes
Respiratory: Clear to Auscultation
Cardiac: Regular Rhythm and S1/S2; Negative Murmur, Rub, Calf Tenderness or Dipti's Sign
GI: Soft, Nontender, Nondistended, Normal Bowel Sounds, Flat and No Hepatosplenomegaly
Musculoskeletal: No Clubbing, No Cyanosis and No Edema
Skin: Warm and Dry
Neuro: Awake and Alert
Psych: Anxious
--- NOTE | 2024-04-24 12:30 | PN.CDI ---
CDI
- -
CDI:
Physician Documentation Request
Admit Date: 04/22/24 09:25
Dear Doctor Oleg,
Please review the following and provide your response in the progress notes.
Clinical Indicators:
Pt admitted with Adrenal crisis.
04/22 H&P: 'She was hypotensive in the ED, tachypneic, and febrile in the ED. IVF resuscitation was administered and Levophed was started in the ED...
Septic shock:meets SIRS criteria: tachypnea, tachycardia, leukocytosis with left shift, fever.
Hypotension requiring pressors.
- Continue fluid resuscitation, Levophed and wean as tolerated-- Begin empiric ABX'
04/23 Progress Note: 'Septic shock, weaned off of pressors, per ID will DC atb as no uti sumtpoms and bcx negative. Therefore, for now monitor off of antibiotics.'
Recognized standard criteria for this condition and other associated definitions:
�Sepsis
-Systemic manifestations of infection, with 2 or more SIRS criteria which include:
-Fever > 100.4��F or hypothermia < 96.8��F
-Leukocytosis WBC > 12,000 or leukopenia, WBC < 4,000, or > 10% bands
-Tachycardia- > 90 beats/minute
-Tachypnea- RR > 20 breaths/minute or PaCO2 < 32mmHg
Source: Merck Manual 2013
-Documentation should include the known or suspected organism, and the underlying infection, such as UTI or pneumonia
�Septic Shock
-Severe sepsis with associated with circulatory failure, evidenced by hypotension and hypoperfusion
Based on the above information and the recognized standard SIRS criteria, please clarify if sepsis is still an accurate diagnosis, and reflective of the patient�s condition, to ensure quality of the medical record.
Please clarify in the Progress Notes:
Sepsis -Septic Shock is/was present and is a clinical diagnosis based on (please include this additional support in the medical record)
After study sepsis has been ruled out
Hypovolemic Shock
Shock due to
Other
Use of terms such as suspected, likely, concern for, or probable (associated with a specific diagnosis that is being evaluated, monitored, or treated as if it exists) are acceptable and can be coded in the inpatient setting, when documented at the
time of discharge.
Thank you,
Kim Ordoñez RN, BSN
CDI Specialist
Available via [employer]
Please use your independent medical judgment in providing your response.
--- NOTE | 2024-04-24 12:48 | CM ---
CM following re: discharge planning.
Reviewed pt's chart, met with pt.
Discharge order noted. Pt is aware, expressed her disappointed feeling stating she thought she will stay in the hospital for 2 more days.
Pt reports she lives with disabled son in a 2SH, pt's daughter is taking care of her brother while pt is hospitalized. Pt stated she has plenty of support including son's father. Pt stated her daughter will transport her home.
D/C plan: home no needs. Daughter to transport.
--- NOTE | 2024-04-24 13:00 | W.DCSUMMARY ---
Documented by User: Annette Dejesus MD, Resident 04/24/24 13:47
Discharge Summary
Discharge Data
Date of Admission: 04/22/24
Date of Discharge: 04/24/24
-
Pending Results: No
Hospital Course
Discharging Physician : Keven High MD; Annette Dejesus MD.
Disposition : Home
Primary care physician : yCnthia Cornell MD.
Principal Discharge diagnosis : Shock, adrenal crisis, asymptomatic bacteriuria
Chronic Discharge diagnosis : Adrenal insufficiency, trigeminal neuralgia
Hospital Course :
58-year-old female with history of adrenal insufficiency, trigeminal neuralgia, who presented to the ED in adrenal crisis. In the ED, she was awake and alert, hypotensive, febrile, with elevated WBC, with random cortisol 1.8, and sodium 128.
Urinalysis was unequivocal given elevated squamous cells, and chest xray showed no acute disease.
Fluid resuscitation was initiated, and eventually pressors were started. Blood cultures and urine culture were taken, IV hydrocortisone was started, and broad spectrum antibiotics were initiated. Pt was then admitted to the ICU. Pt responded well
with quick resolution of symptoms. Pressors were tapered off and IV hydrocortisone was tapered. Sodium normalized and stayed stable, blood pressure remained stable off pressors and fever did not recur. Blood culture was without growth and urine
culture grew E.coli.
Antibiotics were held after two days of broad spectrum coverage while patient was observed, and patient remained afebrile with no new symptoms and with downtrending leukocytes. She was transferred to the floors. She continued to improve throughout
stay and strongly indicated that she would like to be discharged. She was deemed stable for discharge to home and is being discharged with rx of Hydrocortisone 20mg PO BID to be taken in the morning and afternoon. This is higher than her dose prior
to admission, and she is to follow up shortly with her outpatient shipping services sales representative, Dr. Cornell before making any changes to this temporary dosing.
Important imaging findings/Data:
CXR 04/22: No radiographic evidence of acute cardiopulmonary abnormality.
Discharge Plan
-
Patient Disposition: Home (Routine Discharge)
Discharge Diagnosis/Procedures: Septic shock, adrenal
Condition: Good
Diet: No restrictions
Activity: No restrictions
Driving Restrictions: As prior to admission
Bathing Restrictions: None
Instructions: Shock, Adrenal crisis
Referrals:
Cynthia Cornell MD [Family Provider] -
Additional Discharge Medication Instructions: Follow up shortly with Dr. Cynthia Cornell your shipping services sales representative. Please call her office to make an appointment.
Take one 20mg hydrocortisone tablet in the morning, and one 20mg hydrocortisone tablet in the afternoon. This is higher than your usual dose, so you should take this temporarily until you see your shipping services sales representative.
Prescriptions:
New
hydrocortisone 20 mg tablet
20 mg PO BID 30 Days Qty: 60 0RF
Rx Instructions:
Take one 20mg tablet in the morning, and one 20mg tablet in the afternoon.
Discontinued
hydrocortisone 10 mg Tablet
20 mg PO DAILY
hydrocortisone 10 mg Tablet
10 mg PO QPM
Discharge Orders:
Discharge Patient (As Directed); Ordered 04/24/24
Ordered By: Annette Dejesus
Discharge Date and Time
Discharge Date/Time: 04/24/24 13:48
Print Language: ANDORRAN

Documented by User: Keven High MD 04/25/24 18:36
Discharge Summary
Discharge Data
Date of Admission: 04/22/24
Date of Discharge: 04/25/24
Discharge Plan
-
Patient Disposition: Home (Routine Discharge)
Discharge Diagnosis/Procedures: Septic shock, adrenal
Condition: Good
Diet: No restrictions
Activity: No restrictions
Driving Restrictions: As prior to admission
Bathing Restrictions: None
Instructions: Shock, Adrenal crisis
Referrals:
Cynthia Cornell MD [Family Provider] -
Additional Discharge Medication Instructions: Follow up shortly with Dr. Cynthia Cornell your shipping services sales representative. Please call her office to make an appointment.
Take one 20mg hydrocortisone tablet in the morning, and one 20mg hydrocortisone tablet in the afternoon. This is higher than your usual dose, so you should take this temporarily until you see your shipping services sales representative.
Prescriptions:
New
hydrocortisone 20 mg tablet
20 mg PO BID 30 Days Qty: 60 0RF
Rx Instructions:
Take one 20mg tablet in the morning, and one 20mg tablet in the afternoon.
Discontinued
hydrocortisone 10 mg Tablet
20 mg PO DAILY
hydrocortisone 10 mg Tablet
10 mg PO QPM
Discharge Orders:
Discharge Patient (As Directed); Ordered 04/24/24
Ordered By: Annette Dejesus
Discharge Date and Time
Discharge Date/Time: 04/24/24 13:48
Print Language: ANDORRAN
== END 2024-04-24 13:48 | disposition home or self-care (01) | DRG 871 ==
LOC: 3 WEST ACU 09:25
PROVIDERS: Student in an Organized Health Care Education/Training Program; ADMITTING PHYSICIAN Hospitalist; CONSULT PHYSICIAN Internal Medicine Critical Care Medicine; CONSULT PHYSICIAN Internal Medicine Infectious Disease; EMERGENCY PHYSICIAN Emergency Medicine; FAMILY PHYSICIAN Internal Medicine Endocrinology, Diabetes & Metabolism
DX: A41.9 Sepsis, unspecified organism (principal); R65.21 Severe sepsis with septic shock; E27.1 Primary adrenocortical insufficiency; E27.2 Addisonian crisis; E87.1 Hypo-osmolality and hyponatremia; N39.0 Urinary tract infection, site not specified; E03.8 Other specified hypothyroidism; B96.20 Unspecified Escherichia coli [E. coli] as the cause of diseases classified elsewhere; E78.5 Hyperlipidemia, unspecified; E86.1 Hypovolemia; F41.9 Anxiety disorder, unspecified; G43.909 Migraine, unspecified, not intractable, without status migrainosus; G50.0 Trigeminal neuralgia; M81.0 Age-related osteoporosis without current pathological fracture; K30 Functional dyspepsia; R11.2 Nausea with vomiting, unspecified; R53.83 Other fatigue; Z88.0 Allergy status to penicillin
CPT/HCPCS: 71046; 80048; 80053; 81003; 81015; 82533; 82962; 83605; 83735; 84100; 84145; 84443; 84484; 85025; 85027; 85610; 85730; 87040; 87086; 87088; 87186; 87811; 93005; 96361; 96374; 99291

== ENCOUNTER → 2024-06-06 14:51 | Outpatient (REF) | payer BC, SELFPAY | LOC: HWRAD 14:51 | PROVIDERS: ATTENDING PHYSICIAN Internal Medicine Endocrinology, Diabetes & Metabolism; FAMILY PHYSICIAN Family Medicine | DX: E04.2 Nontoxic multinodular goiter (principal) | CPT/HCPCS: 76536 ==

== ENCOUNTER 2024-09-27 19:31 | Inpatient (IN) | payer BC, SELFPAY ==
[2024-09-27 13:19] VITALS: BP 119/78
[2024-09-27 13:54] LABS: % Basophils 0.4 % (0-2); % Eosinophils 0.9 % (0-6); % Immature Granulocytes 1.1 % (0-0.5); % Lymphocytes 7.4 % (20.5-51.1); % Monocytes 6.5 % (1.7-9.3); % Neutrophils 83.7 % (42.2-75.2); Absolute Basophils 0.1 10^3/uL (0-0.2); Absolute Eosinophils 0.2 10^3/uL (0-0.7); Absolute Immature Granulocytes 0.2 10^3/uL (0-0.05); Absolute Lymphocytes 1.5 10^3/uL (1.2-3.4); Absolute Monocytes 1.3 10^3/uL (0.1-0.6); Absolute Neutrophils 16.9 10^3/uL (1.4-6.5); Hematocrit 42.4 % (37.0-47.0); Hemoglobin 14.5 g/dL (12.0-16.0); Mean Corp Hgb Conc. 34.2 g/dL (33.0-37.0); Mean Corpuscular Hgb 28.9 pg (27.0-31.0); Mean Corpuscular Volume 84.6 fL (81.0-99.0); Mean Platelet Volume 8.2 fL (7.4-10.4); Nucleated Red Blood Cells % 0 %; Platelet Count 414 10^3/uL (130-400); Red Blood Cell Count 5.01 10^6/uL (4.20-5.40); Red Cell Dist. Width 13.1 % (11.5-14.5); White Blood Cell Count 20.2 10^3/uL (4.8-10.8)
[2024-09-27 14:16] LABS: ALT (SGPT) 27 U/L (0-35); AST (SGOT) 22 U/L (14-36); Albumin 4.8 g/dl (3.5-5.0); Alkaline Phosphatase 97 U/L (38-126); Blood Urea Nitrogen 14 mg/dl (7-17); Calcium 10.2 mg/dl (8.4-10.2); Carbon Dioxide 25 mmol/L (22-30); Chloride 95 mmol/L (98-107); Glucose 97 mg/dl (70-99); Potassium 4.7 mmol/L (3.5-5.1); Sodium 130 mmol/L (135-145); Total Bilirubin 0.8 mg/dl (0.2-1.3); eGFR > 60.00
[2024-09-27 16:14] VITALS: BMI 20.7
--- NOTE | 2024-09-27 16:17 | ED.GENMED ---
History of Present Illness
General
Chief Complaint: Flank Pain
Source: patient and records
Exam Limitations: none
Time Seen by Provider: 09/27/24 16:07
Nursing documentation reviewed up to this point in time: agreed with
History of Present Illness
History of Present Illness:
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
dip had blood earlier today, admitted previously with similar complaints, apparently had a cyst on her kidney but no stones, feels nauseous without vomiting
Past History
Past History
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
ED Past Surgical History: None
Social History
Tobacco: Non-smoker
Alcohol: None
Drug: None
Living: with family
Employment: Employed
Family History
Family History: Cancer (Aunt breast cancer in her 50s, sister with breast cancer in her 40s, first cousin with ovarian cancer in her 40s)
Review of Systems
Review of Systems
All Other Systems: Not applicable
Constitutional: Reports fever and fatigue
Cardiac: Reports no symptoms
ABD/GI: Reports nausea; Denies abdominal pain
: Reports flank pain
Musculoskeletal: Reports no symptoms
Skin: Reports no symptoms
Phy Exam
Physical Exam
Physical Exam:
Physical Exam
General: Nontoxic 59
Neck: Lips are dry
Heart: s1/s2 regular rate and rhythm, no murmur. equal radial pulses.
Lungs: no acute respiratory distress. clear bilaterally
Abdomen: Soft tender in the left flank
Neuro: alert and oriented. no focal neurological deficits
Skin: no rash
Psychiatric: well kept. interactive and cooperative
Extremities: no edema.
Course
Orders/Labs/Results
Orders:
Orders
09/27/24 13:33
Complete Blood Count/With Diff Urgent
Comprehensive Metabolic Panel Urgent
09/27/24 16:09
CT Abd/pel Without Iv Or Oral Urgent
Comment:
Reason For Exam: left flakn pian
IV Insert/Care/Rem.- Treatment PRN
09/27/24 16:14
Cortisol, Random Urgent
0.9% Sodium Chloride 1000 ml [Nss] 1,000 ml IV BOLUS
Ondansetron Injectable [Zofran] 4 mg IV NOW STA
09/27/24 16:15
Acetaminophen [Tylenol] 650 mg PO NOW STA
Hydrocortisone Sod Succinate [Solu-Cortef] 50 mg IV NOW STA
09/27/24 16:30
Urinalysis Reflex To Culture Urgent
Date Specimen was Collected: 09/27/24
Time Specimen was Collected: 16:29
Urine Microscopic Reflex Cult Urgent
Blood Culture Q30M
ANA Source: Blood/Venous
Specimen Description:
09/27/24 16:37
Blood Culture Q30M
ANA Source: Blood/Venous
Specimen Description:
09/27/24 18:25
Gabapentin [Neurontin] 200 mg PO NOW STA
Abnormal Lab Results
09/27/24 09/27/24
13:33 16:30
WBC 20.2 H 10^3/uL
(4.8-10.8)
Plt Count 414 H 10^3/uL
(130-400)
Abs Immat Gran (auto) 0.2 H 10^3/uL
(0-0.05)
Absolute Neuts (auto) 16.9 H 10^3/uL
(1.4-6.5)
Absolute Monos (auto) 1.3 H 10^3/uL
(0.1-0.6)
Immature Gran % 1.1 H %
(0-0.5)
Neutrophils % 83.7 H %
(42.2-75.2)
Lymphocytes % 7.4 L %
(20.5-51.1)
Sodium 130 L mmol/L
(135-145)
Chloride 95 L mmol/L
(98-107)
Ur Occult Blood Reflex 4+ A
(Negative)
Urine RBC 3-6 A /HPF
(0-2)
Urine Bacteria (Reflex) Few A
(Negative)
09/27/24 13:33
09/27/24 13:33
Vital Signs
Initial and Last Documented VS:
Initial Vital Signs
Temp Pulse Resp BP Pulse Ox
98.3 F 89 16 119/78 98
09/27/24 13:19 09/27/24 13:19 09/27/24 13:19 09/27/24 13:19 09/27/24 13:19
Last Documented Vital Signs
Temp Pulse Resp BP Pulse Ox
98.6 F 77 19 102/72 98
09/27/24 16:35 09/27/24 16:38 09/27/24 16:38 09/27/24 16:38 09/27/24 13:19
MDM/Problems Addressed
Differential Diagnosis Includes:
UTI pyelonephritis ruptured renal cyst sepsis adrnal crisis
MDM/Problems Addressed:
left flank pain
Chronic conditions affecting care:
addisons
Acute Exacerbation and/or Progression of Chronic Illness:
jassi
*Radiology
Radiology exam reviewed: preliminary read by ED provider
*Pulse Oximetry
Patient hypoxic: no
*Central Lab Technician Interpretation
Rate: normal
Interpretation: normal
Heart Rate: 78
Rhythm: sinus
*Critical Care Note
Total Time (30-74mins, 75-104mins- exclusive of procedures): 23
Update Note
Update Note:
6:[address] noted labs noted patient did have low-grade fever today she has adrenal insufficiency Helmville's low blood pressure earlier today, reviewed the CT report with her including the differential posed by the radiologist at this point think it
would be prudent to admit her to the hospital has that she has minimal reserve with the Jassi's, try to get a definitive diagnosis the patient and her sister are in agreement
ED Attending Note
-
Portions of this chart may have been created with voice recognition software.� Occasional wrong word or��sound alike� substitutions may have occurred due to the inherent limitations of voice recognition software.
Discharge Plan
Departure
Patient Disposition: Admit
Date of Disposition: 09/27/24
Time of Disposition: 18:39
Admit to: Med/Surg
Presentation/result/management discussed w/ accepting MD/DO: Hospitalist
Patient with high blood pressure during this ER visit?: No
Condition: Fair
Discharge Problem:
Helmville's disease, Kidney mass
Prescriptions:
No Action
lamotrigine 25 mg Tablet
25 mg PO DAILY
lamotrigine 25 mg Tablet
50 mg PO HS
carboxymethylcellulose sodium [Refresh Tears] 0.5 % Drops
1 drp BOTH EYES QIDPRN PRN (Reason: dry eyes)
gabapentin 100 mg Capsule
200 mg PO TID
hydrocortisone 10 mg Tablet
20 mg PO DAILY
hydrocortisone 10 mg Tablet
10 mg PO HS
escitalopram oxalate 5 mg Tablet
5 mg PO DAILY
Referrals:
Gege Patton DO [Family Provider] -
Interventions
Interventions:
*Risk Screen - Suicide Last Done: 09/27/24 13:23
*General Assessment Last Done: 09/27/24 13:19
*Neglect/Abuse Screening Last Done: 09/27/24 13:23
*ED- Fall Risk Assessment Last Done: 09/27/24 16:39
*ED COVID-19 Vaccine History Last Done: 03/14/25 16:39
Discharge Date and Time
Print Language: VENEZUELAN
[2024-09-27] MEDS: TYLENOL 650 MG PO (16:23)
[2024-09-27] MEDS: SOLU-CORTEF 50 MG IV (16:26)
[2024-09-27] MEDS: ZOFRAN 4 MG IV (16:26)
[2024-09-27] MEDS: NSS 1000 IV (16:27)
[2024-09-27 16:38] VITALS: BP 102/72
[2024-09-27 16:45] LABS: Urine Albumin Negative (Neg - Trace); Urine Bilirubin Negative (Negative); Urine Character Clear (Clear); Urine Color Yellow; Urine Glucose Negative (Negative); Urine Ketone Negative (Negative); Urine Leukocyte Negative (Negative); Urine Nitrite Negative (Negative); Urine Occult Blood 4+ (Negative); Urine Specific Gravity 1.015 (<1.030); Urine Urobilinogen Negative (Neg - 1+)
[2024-09-27 17:23] LABS: Urine Bacteria Few (Negative); Urine Squamous Cell >30 /LPF (Few)
[2024-09-27 18:33] VITALS: BP 99/73
[2024-09-27] MEDS: NEURONTIN 200 MG PO (18:33)
--- NOTE | 2024-09-27 18:43 | HPS.HSE ---
Family Physician
-
Family Physician: Gege Patton
Chief Complaint
-
low grade fever
left flank pain
History of Present Illness
59-year-old female Jassi's, trigeminal neuralgia 6 days of left flank pain . patient was nauseous today. she had a low temp of 99 today. Patient denied any headache, dizzy or syncope. Patient denied any chest pain or short of breath. Patient
denies any abdominal pain, diarrhea. Patient denied any dysuria hematuria.
CT with the impression of Exophytic mass arising from the lateral aspect of the left kidney, new from examination in 2017. This mass raises concern for renal mass/neoplasia and renal cell carcinoma. Differential consideration of exophytic renal
abscess, felt to be less likely. Patient received Tylenol, gabapentin, hydrocortisone, Merrem in the ER. admitting for further mangment.
Medical History
Past Medical History
Past Medical History: Reports Other
Additional Past Medical History:
Wilcox disease
Postmenopausal atrophic vaginitis
Multinodular goiter
Renal cyst
Osteoporosis
Insomnia
Hyperlipidemia
Chronic interstitial cystitis
Past Surgical History: Reports None
Social History
Tobacco: Non-smoker
Alcohol: None
Drug: None
Family History
Family History: Not pertinent
Allergies / Home Medications
Allergies reflects when Allergies were last updated in [facility].
Home Medications with original date entered in [facility]
Allergy/Medication List:
Allergies
Allergy/AdvReac Type Severity Reaction Status Date / Time
Penicillins Allergy Intermediate stiff Verified 09/27/24 13:19
neck/LIAO
Home Medications
carboxymethylcellulose sodium 0.5 % eye drops (Refresh Tears) 1 drp BOTH EYES QIDPRN PRN dry eyes 09/27/24
escitalopram oxalate 5 mg tablet 5 mg PO DAILY 09/27/24
gabapentin 100 mg capsule 200 mg PO TID 09/27/24
hydrocortisone 10 mg tablet 10 mg PO HS 09/27/24
hydrocortisone 10 mg tablet 20 mg PO DAILY 09/27/24
lamotrigine 25 mg tablet 25 mg PO DAILY 09/27/24
lamotrigine 25 mg tablet 50 mg PO HS 09/27/24
Review of Systems
-
Constitutional: Reports No Symptoms
EENT: Reports No Symptoms
Respiratory: Reports No Symptoms
Cardiac: Reports No Symptoms
Abdomen/GI: Reports No Symptoms
: Reports Other (left flank pain)
Musculoskeletal: Reports No Symptoms
Skin: Reports No Symptoms
Neurological: Reports No Symptoms
Endocrine: Reports No Symptoms
Hematologic/Lymphatic: Reports No Symptoms
Psych: Reports No Symptoms
Physical Exam
Vital Signs
Vital Signs
Temp Pulse Resp BP Pulse Ox
98.6 F 77 19 102/72 98
09/27/24 16:35 09/27/24 16:38 09/27/24 16:38 09/27/24 16:38 09/27/24 13:19
Physical Exam
General: Well Developed, Well Nourished and No Apparent Distress
HEENT: NormoCephalic, Moist mucous membranes and Atraumatic
Respiratory: Clear
Cardiac: S1/S2 and Regular Rhythm; No Murmur or Rub
GI: Soft, Non Tender, Non Distended and Normal Bowel Sounds; No Organomegaly
Rectal: Deferred by Provider
Genito-urinary: Other (left flank pain)
Musculoskeletal: No Clubbing, No Cyanosis and No Edema
Skin: No Rash
Neuro: AO x 3 and Nonfocal/grossly intact
Psych: Calm
Laboratory Results
-
09/27/24 13:33
09/27/24 13:33
Laboratory Results
Total Bilirubin 0.8 mg/dl (0.2-1.3) 09/27/24 13:33
AST 22 U/L (14-36) 09/27/24 13:33
ALT 27 U/L (0-35) 09/27/24 13:33
Alkaline Phosphatase 97 U/L (38-126) 09/27/24 13:33
Data Reviewed
-
CT Scan: Report Reviewed by me
Lab Data: Labs Reviewed by me
Impression/Plan
-
#Flank pain concern for renal abscess versus new mass
--WBCs 20.2
-CT abdomen pelvis with impression of Exophytic mass arising from the lateral aspect of the left kidney, new from examination in 2017. This mass raises concern for renal mass/neoplasia and renal cell carcinoma. Differential consideration of
exophytic renal abscess, felt to be less likely. Further evaluation is advised with CT scan without and with contrast.Additional low-density masses within both kidneys, some with dependent calcification, most likely benign cystic masses. These can
also be further evaluated with subsequent CT examination.Diffuse fatty infiltration of the liver.Both adrenal glands are difficult to visualize and appears small. Please correlate with any evidence of adrenal insufficiency.
-Blood culture sent from ER
-Merrem continued
-Tylenol prn for fever
-urology and ID consulted
# Hyponatremia likely hypovolemic
-Sodium 130
-received fluids in ER
-fluids continued
-BMP in am
# History of Jassi disease
-hydrocortisone continued
#Trigeminal neuralgia
- Citalopram continued gabapentin continued
-Lamictal continued
DVT ppx: Lovenox
Diet: Regular
Code Status: Full Code
[2024-09-27 19:00] VITALS: BP 106/83
--- NOTE | 2024-09-27 19:18 | W.PN.UPDATE ---
Update Note
Progress Note Update
This note serves as an addendum to the H&P by financial planning advisor LINDA
Isa GREGG
HPI
59F HX adrenal insufficiency on chronic hydrocortisone , trigeminal neuralgia, HX shock due to adrenal crisis in April 2024, NEG acute infective w/u seen at ER:
- acute Lt flank pain for last 6 days
- some low-grade fever and low blood pressure went to [facility] referred t ER for possible kidney stone
- feels nauseous without vomiting
- no dysuria frequency urine dip had blood earlier today
- She was admitted previously with similar complaints, apparently had a cyst on her kidney but no stones
PHX; see above
Vital Signs
Temp Pulse Resp BP Pulse Ox
98.6 F 88 14 106/83 95
09/27/24 16:35 09/27/24 19:00 09/27/24 19:00 09/27/24 19:00 09/27/24 18:33
PE
General : tearful . Not toxic looking
HEENT: No frontal or maxillary sinus tenderness. No Conjunctival Hemorrhage and Sclera Anicteric.
clear pharynx,. No oral thrush
CVS: RRR S1/S2
Resp: Clear
GI; Soft, Non Tender, Non Distended and Normal Bowel Sounds
Genito-Urinary: Negative CVA Tenderness
Extremities: Edema trace ankle edema bilaterally
Neurological: AO x 3
Laboratory Tests
09/27/24 09/27/24
13:33 16:30
WBC 20.2 H
Plt Count 414 H
Sodium 130 L
Chloride 95 L
Creatinine 0.8
Urine Clarity Clear
Leukocyte Esterase Rfl Negative
Urine WBC (Reflex) 3-5
CT Abd/pel Without Iv Or Oral
- Exophytic mass arising from the lateral aspect of the left kidney, new from examination in 2016.
- This mass raises concern for renal mass/neoplasia and renal cell carcinoma.
- Differential consideration of exophytic renal abscess, felt to be less likely.
- Further evaluation is advised with CT scan without and with contrast.
- Additional low-density masses within both kidneys, some with dependent calcification, most likely benign cystic masses. - These can also be further evaluated with subsequent CT examination.
- Diffuse fatty infiltration of the liver.
- Both adrenal glands are difficult to visualize and appears small. Please correlate with any evidence of adrenal insufficiency.
Prior hospitalist admission: Date of Admission: 04/22/24 - Date of Discharge: 04/24/24
Principal Discharge diagnosis : Shock, adrenal crisis, asymptomatic bacteriuria
Chronic Discharge diagnosis : Adrenal insufficiency, trigeminal neuralgia
ASSESSMENT & PLAN
Pending Rx reconciliation
Concerning for Exophytic Lt renal mass plus or minus abscess
- HX PCN allergy
- BCx sent
- Empiric IV Imipenem
- CT AP with IV contrast for AM
- Urology and ID consult
At risk for adrenal crisis
Borderline hypotensive but relatively stable hemodynamic status
Thrombocytosis and leucocytosis: Reactive or organizing abscess
Reported Fever at home
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
- start stress dose IV Hydrocortisone 100 mg q8
- Observe VSS closely
- trend CBC and T curve
Mild hyponatremia due to relative adrenal insufficiency due to Exophytic Lt renal mass plus or minus abscess
- stress dose steroids plus IVF NS
- Trend Na in AM
Pre exiting condition [facility]
Trigeminal neuralgia
HLD
Interstitial cystitis
Migraines
Osteoporosis
Anxiety
DVT Px: LMWH
Full code
IP TLM
[2024-09-27 20:00] VITALS: BP 97/64
[2024-09-27 20:01] VITALS: BP 98/63
[2024-09-27] MEDS: STERILE WATER FOR INJECTION 20 ML IV (20:08)
[2024-09-27] MEDS: MERREM 1000 MG IV (20:08)
[2024-09-27 23:15] LABS: Cortisol, Random 26.8 ug/dl
[2024-09-28] VITALS (8 sets, daily range): BP systolic 71–104; BP diastolic 52–67; BMI 20.2
[2024-09-28] MEDS: NSS 1000 IV ×2 (00:51→07:51)
[2024-09-28] MEDS: SOLU-CORTEF 100 MG IV ×4 (00:52→23:01)
[2024-09-28] MEDS: NEURONTIN 200 MG PO ×4 (00:52→21:32)
[2024-09-28] MEDS: LAMICTAL 50 MG PO ×2 (00:52→21:31)
[2024-09-28] MEDS: MERREM 500 MG IV ×4 (02:33→19:29)
[2024-09-28] MEDS: STERILE WATER FOR INJECTION 10 ML IV ×4 (02:34→19:30)
[2024-09-28] MEDS: TYLENOL 650 MG PO ×3 (02:37→21:40)
--- NOTE | 2024-09-28 03:06 | PTCARENOTE ---
pt received on unit to 4 . PT AAOX3 c/o chronic pain to L face and some mild pain with movement to L flank. Pt able to ambulate form stretcher to bed. Pt oriented to room and able to make needs known, call eubanks within reach, safety measures in
place.
[2024-09-28 06:07] LABS: Hematocrit 37.3 % (37.0-47.0); Hemoglobin 12.7 g/dL (12.0-16.0); Mean Corpuscular Hgb 29.1 pg (27.0-31.0); Mean Corpuscular Volume 85.6 fL (81.0-99.0); Mean Platelet Volume 8.6 fL (7.4-10.4); Platelet Count 366 10^3/uL (130-400); Red Blood Cell Count 4.36 10^6/uL (4.20-5.40); Red Cell Dist. Width 12.9 % (11.5-14.5); White Blood Cell Count 16.5 10^3/uL (4.8-10.8)
[2024-09-28 06:32] LABS: Blood Urea Nitrogen 11 mg/dl (7-17); Calcium 9.2 mg/dl (8.4-10.2); Carbon Dioxide 24 mmol/L (22-30); Chloride 101 mmol/L (98-107); Estimated Creatinine Clearance 74 ml/min; Glucose 107 mg/dl (70-99); Potassium 5.2 mmol/L (3.5-5.1); Sodium 133 mmol/L (135-145); eGFR > 60.00
[2024-09-28] MEDS: LAMICTAL 25 MG PO (07:50)
[2024-09-28] MEDS: LEXAPRO 5 MG PO (07:51)
--- NOTE | 2024-09-28 08:42 | W.PN.HOSP.TC ---
Today's Communication/Plan
-
see A/P
Assessment / Plan
Assessment / Plan
HPI: 59 yo F PHX adrenal insufficiency on chronic hydrocortisone, trigeminal neuralgia, HX shock due to adrenal crisis in April 2024, p/w acute Lt flank pain for 6 days, associated with low-grade fever and low blood pressure.
She went to and was referred to ER.
CT AP:
Exophytic mass arising from the lateral aspect of the mid to lower left kidney, corresponding to mass seen on earlier unenhanced examination. Based on morphologic appearance on unenhanced images as well as clinical history, this is felt to most
likely represent renal abscess/infected cyst. Renal cell neoplasia/renal cell carcinoma is still possible, felt to be less likely based on the enhanced images and the clinical history.
Multiple other renal cysts, which contain small calcifications, compatible with benign cysts with calcification.
Both adrenal glands are small and difficult to visualize, compatible with a history of adrenal insufficiency.
A/P:
# L Flank pain 2/2 renal mass/abscess
# sepsis POA 2/2 above
follow blood cultures
cont Merrem
Tylenol prn for fever
urology and ID consulted
IR CS for abscess drainage
# Hyponatremia likely hypovolemic
s/p IVF in ER, cont IVF
Follow BMP
# History of Winnett disease
hydrocortisone continued
# Trigeminal neuralgia
Cont Citalopram, cont gabapentin, cont Lamictal
DVT ppx: Lovenox
Code Status: Full Code
Anticipated Discharge: > 48 hours
Subjective/Interval History
-
Date of Service: September 28, 2024
Objective Data
-
Labs:
Laboratory Results
09/28/24
05:05
WBC 16.5 H
Hgb 12.7
Hct 37.3
Plt Count 366
Sodium 133 L
Potassium 5.2 H
Chloride 101
Carbon Dioxide 24
BUN 11
Creatinine 0.7
Glucose 107 H
Calcium 9.2
Vital Signs:
Vital Signs
Temp Pulse Resp BP Pulse Ox
36.6 C 71 18 104/63 93
09/28/24 02:08 09/28/24 02:08 09/28/24 02:08 09/28/24 02:08 09/28/24 02:08
I&O
09/27/24 09/28/24 09/29/24
06:59 06:59 06:59
Intake Total 240 / 240
Balance 240 / 240
Review of Systems
-
All other systems: Reviewed and negative
Physical Exam
-
General: Well Developed, Well Nourished, No Apparent Distress, Comfortable and Conversant
HEENT: Normocephalic, Atraumatic and Moist Mucous Membranes
Respiratory: Clear to Auscultation
Cardiac: Regular Rhythm and S1/S2
GI: Soft, Nontender, Nondistended and Normal Bowel Sounds
Musculoskeletal: No Clubbing, No Cyanosis and No Edema
Skin: Warm and Dry
Neuro: Awake and Alert
Psych: Calm and Intact Judgement/Insight
Data Reviewed
-
CT Scan: Report Reviewed by me
Labs: Labs Reviewed by me
--- NOTE | 2024-09-28 10:06 | W.PN.URO.CBU ---
Today's Communication / Plan
-
npo to irad af irad requests hold lovenox
Assessment / Plan
-
lefr renal [id number] vs infected cyst and addisons diseAse . Will continue iv abs and nop lovenox requested irad input for drainage and culture
Diagnosis
-
Date of Service: September 28, 2024
-
Patient Diagnosis:left renal mass ct scan and history compatible with abscess or infeted cyst Pt on steroids for addisomns diease woith fevr chils 16 k wbc
Post Op Day:
Subjective
-
lef tflank pain chills
Objective
-
Vital Signs
Temp Pulse Resp BP Pulse Ox
97.7 F 63 16 98/62 99
09/28/24 07:00 09/28/24 07:00 09/28/24 07:00 09/28/24 07:00 09/28/24 07:00
Intake and Output
09/27/24 09/28/24 09/29/24
06:59 06:59 06:59
Intake Total 240 / 240
Balance 240 / 240
Intake:
Oral fluids 240 / 240
Laboratory Results
09/28/24 05:05
09/28/24 05:05
Review of Systems
-
Constitutional: Fever, Night Sweats and Chills
: Flank Pain
Physical Exam
-
General - well developed, well nourished, no acute distress
Chest - clear bilaterally
Abdomen - soft, non-tender, positive bowel sounds, no CVAT, no incisional pain or distention
Genitalia - normal
Rectal - normal
Skin - warm & dry with no rash
Neuro - AOx3, no motor deficits
Extremities - no clubbing, no cyanosis, no edema
Incision - clean, dry
Dressing - clean, dry, intact
Care Review
Data Reviewed
Discussed with: Hospitalist, Nursing, IRAD and Family
CT Scan: Image Pers Reviewed
--- NOTE | 2024-09-28 12:35 | CON.ID ---
Consultation
-
Date/Time Consultation Requested: 09/27/24 23:26
Date/Time Consultation Performed: 09/29/23 12:36
Requesting Provider: NIKOLE Madera
Performing Provider: Dr Hollingsworth
Reason for Consultation: fever and flank pain
Chief Complaint / Past History
Chief Complaint
fever and flank pain
History of Present Illness
Ms Kemp is a 59 year old female with Victoria's trigeminal neuralgia who reports a 6 day history of L flank pain without radiation progressing to T of 99, nausea. No headache, chest pain, shortness of breath, abdominal pain, diarrhea, dysuria or
hematuria. Had a single previous UTI in Apr of last year.
Since arrival here patient has been afebrile, bp with mild hypotension, wbc 20 initially now 16.5, hgb 12.7, plt initially 414 now 366, L shift is noted, na 133, k 5.2, cr 0.7, lfts wnl, UA 3-5 wbc/hpf and >30 squamous cells, CT showed a new
exophytic mass from the L kidney new compared to 2017 - with contrast felt to be more likely abscess/infected cyst. Started on meropenem and given hydrocortisone, blood cultures x2 no growth to date. UA did not reflex to culture, for biopsy with IR
Past History
Additional Past Medical History:
Victoria disease
Postmenopausal atrophic vaginitis
Multinodular goiter
Renal cyst
Osteoporosis
Insomnia
Hyperlipidemia
Past Surgical History: None
Allergy History:
Penicillins Allergy (Intermediate, Verified 09/27/24 13:19)
stiff neck/LIAO
Medications Reviewed: Yes
Social History
Tobacco: Non-Smoker
Alcohol: None
Drug: None
Family History
Family History: Not Pertinent
Review of Systems
Review of Systems
General: Negative Fever or Chills
All systems: All other systems were reviewed and were negative
Vital Signs
Temp Pulse Resp BP Pulse Ox
97.7 F 63 16 98/62 99
09/28/24 07:00 09/28/24 07:00 09/28/24 07:00 09/28/24 07:00 09/28/24 07:00
Physical Exam
Physical Exam
Constitutional: No Acute Distress
Cardiovascular: Regular Rate and S1/S2; Negative Murmur or Rub
Pulmonary: Clear and Symmetric; Negative Wheezes, Rales or Rhonchi
Gastrointestinal: Soft, Non Tender, Non Distended and Normal Bowel Sounds
Genito-Urinary: CVA Tenderness; Negative Suprapubic Tenderness
Skin: Warm and Dry; Negative Rash or Jaundice
Lab / Diagnostic Study Results
09/28/24 05:05
09/28/24 05:05
Abs Immat Gran (auto) 0.2 10^3/uL (0-0.05) H 09/27/24 13:33
Absolute Neuts (auto) 16.9 10^3/uL (1.4-6.5) H 09/27/24 13:33
Absolute Lymphs (auto) 1.5 10^3/uL (1.2-3.4) 09/27/24 13:33
Absolute Monos (auto) 1.3 10^3/uL (0.1-0.6) H 09/27/24 13:33
Absolute Basos (auto) 0.1 10^3/uL (0-0.2) 09/27/24 13:33
Immature Gran % 1.1 % (0-0.5) H 09/27/24 13:33
Neutrophils % 83.7 % (42.2-75.2) H 09/27/24 13:33
Lymphocytes % 7.4 % (20.5-51.1) L 09/27/24 13:33
Monocytes % 6.5 % (1.7-9.3) 09/27/24 13:33
Eosinophils % 0.9 % (0-6) 09/27/24 13:33
Basophils % 0.4 % (0-2) 09/27/24 13:33
Ur Squamous Epith Cells >30 /LPF (Few) 09/27/24 16:30
Microbiology Results
Micro:
09/27/24 16:37 Blood Culture - Pending
Blood/Venous
09/27/24 16:30 Blood Culture - Pending
Blood/Venous
Assessment / Plan
Possible Renal Abscess
Fevers
Leukocytosis
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
- for aspiration/biopsy with IR per urology
- UA without significant pyuria
- send urine culture
- c/w meropenem pending culture
--- NOTE | 2024-09-28 14:34 | W.PN.UPDATE ---
Update Note
Progress Note Update
- US guided aspiration of left renal abscess/superinfected cyst
- 18g needle advanced into exophytic fluid focus arising from lateral midpole of the left kidney
- 4-5mL of purulent green fluid obtained. Too small for drain placement
- Samples sent to lab. Pt tolerated well.
[2024-09-28] MEDS: MELATONIN 5 MG PO (21:32)
--- NOTE | 2024-09-29 00:26 | PTCARENOTE ---
Pt BP on SHANDA 84/52, BP reassesed on SHARAN 76/50 BP assessed manually on SHARAN 82/50. SUSPENDER MAKER made aware. No concern at present time due to pt still on IV fluids. Pt denies dizziness/lightheadedness. PT AAOx3 safety measures in place, call eubanks within reach.
[2024-09-29] MEDS: STERILE WATER FOR INJECTION 10 ML IV ×4 (02:40→21:15)
[2024-09-29] MEDS: MERREM 500 MG IV ×4 (02:40→21:14)
[2024-09-29] MEDS: NSS 1000 IV ×2 (02:47→14:30)
[2024-09-29 07:00] VITALS: BP 95/58
[2024-09-29 07:13] LABS: Hematocrit 32.5 % (37.0-47.0); Hemoglobin 11.1 g/dL (12.0-16.0); Mean Corp Hgb Conc. 34.2 g/dL (33.0-37.0); Mean Corpuscular Volume 84.9 fL (81.0-99.0); Mean Platelet Volume 8.7 fL (7.4-10.4); Platelet Count 332 10^3/uL (130-400); Red Blood Cell Count 3.83 10^6/uL (4.20-5.40); Red Cell Dist. Width 13.2 % (11.5-14.5)
[2024-09-29 07:43] LABS: Blood Urea Nitrogen 10 mg/dl (7-17); Calcium 8.6 mg/dl (8.4-10.2); Carbon Dioxide 25 mmol/L (22-30); Chloride 103 mmol/L (98-107); Estimated Creatinine Clearance 87 ml/min; Glucose 109 mg/dl (70-99); Magnesium 2.1 mg/dl (1.6-2.3); Potassium 4.3 mmol/L (3.5-5.1); Sodium 135 mmol/L (135-145); eGFR > 60.00
[2024-09-29] MEDS: LAMICTAL 25 MG PO (08:08)
[2024-09-29] MEDS: NEURONTIN 200 MG PO ×3 (08:08→21:17)
[2024-09-29] MEDS: LEXAPRO 5 MG PO (08:09)
[2024-09-29] MEDS: SOLU-CORTEF 100 MG IV ×2 (08:10→16:22)
--- NOTE | 2024-09-29 08:38 | W.PN.HOSP.TC ---
Today's Communication/Plan
-
see A/P
Assessment / Plan
Assessment / Plan
HPI: 59 yo F PHX adrenal insufficiency on chronic hydrocortisone, trigeminal neuralgia, HX shock due to adrenal crisis in April 2024, p/w acute Lt flank pain for 6 days, associated with low-grade fever and low blood pressure.
She went to and was referred to ER.
CT AP:
Exophytic mass arising from the lateral aspect of the mid to lower left kidney, corresponding to mass seen on earlier unenhanced examination. Based on morphologic appearance on unenhanced images as well as clinical history, this is felt to most
likely represent renal abscess/infected cyst. Renal cell neoplasia/renal cell carcinoma is still possible, felt to be less likely based on the enhanced images and the clinical history.
Multiple other renal cysts, which contain small calcifications, compatible with benign cysts with calcification.
Both adrenal glands are small and difficult to visualize, compatible with a history of adrenal insufficiency.
A/P:
# L Flank pain 2/2 renal abscess
# sepsis POA 2/2 above
s/p IR aspiration of left renal abscess/superinfected cyst 09/28
Follow wound culture
Admission blood cultures so far negative
Follow urine culture
cont Merrem
Tylenol prn for fever
urology and ID on board
# Hyponatremia likely hypovolemic, resolved after IVF
# History of [place] disease
Stress dose steroid continued
# Trigeminal neuralgia
Cont Citalopram, cont gabapentin, cont Lamictal
DVT ppx: Lovenox
Code Status: Full Code
Anticipated Discharge: > 48 hours
Subjective/Interval History
-
Date of Service: September 29, 2024
Objective Data
-
Labs:
Laboratory Results
09/29/24
06:18
WBC 10.0
Hgb 11.1 L
Hct 32.5 L
Plt Count 332
Sodium 135
Potassium 4.3
Chloride 103
Carbon Dioxide 25
BUN 10
Creatinine 0.6
Glucose 109 H
Calcium 8.6
Vital Signs:
Vital Signs
Temp Pulse Resp BP Pulse Ox
36.6 C 59 18 84/52 93
09/28/24 23:00 09/28/24 23:00 09/28/24 23:00 09/28/24 23:00 09/28/24 23:00
I&O
09/28/24 09/29/24 09/30/24
06:59 06:59 06:59
Intake Total 240 / 240 1480 / 1480
Balance 240 / 240 1480 / 1480
Review of Systems
-
All other systems: Reviewed and negative
Physical Exam
-
General: Well Developed, Well Nourished, No Apparent Distress, Comfortable and Conversant
HEENT: Normocephalic, Atraumatic and Moist Mucous Membranes
Respiratory: Clear to Auscultation and Non Labored Respirations; Negative Accessory Resp Muscle Use
Cardiac: Regular Rhythm and S1/S2
GI: Soft, Nontender, Nondistended and Normal Bowel Sounds
Musculoskeletal: No Clubbing, No Cyanosis and No Edema
Skin: Warm and Dry
Neuro: Awake and Alert
Psych: Calm and Intact Judgement/Insight
Data Reviewed
-
CT Scan: Report Reviewed by me
Labs: Labs Reviewed by me
--- NOTE | 2024-09-29 12:46 | W.PN.URO.CBU ---
Today's Communication / Plan
-
continue present care
Assessment / Plan
-
. Will continue iv abs pt improving abnd cxs neg of blood so far if continues to progress then home ontargeted po abs from abscess cx but oif regresses or reoccurs then ct scan and may need robotic ubnroofing of cyst
Diagnosis
-
Date of Service: September 29, 2024
-
Patient Diagnosis:
Post Op Day:
Patient Diagnosis:left renal mass ct scan and history compatible with abscess or infected cyst Pt on steroids for addisons disease with fever chills 16 k wbc
d
Post Op Day: 1 irad drained 5 cc pus too small toleave drain
Subjective
-
improved
Objective
-
Vital Signs
Temp Pulse Resp BP Pulse Ox
98.4 F 69 16 95/58 99
09/29/24 07:00 09/29/24 07:00 09/29/24 07:00 09/29/24 07:00 09/29/24 07:00
Intake and Output
09/28/24 09/29/24 09/30/24
06:59 06:59 06:59
Intake Total 240 / 240 1480 / 1480
Balance 240 / 240 1480 / 1480
Intake:
Oral fluids 240 / 240 480 / 480
IV fluids (Total) 1000 / 1000
Other:
Number of approximated MODERATE 3
amounts of urine
Laboratory Results
09/29/24 06:18
09/29/24 06:18
Review of Systems
-
: Flank Pain
Physical Exam
-
General - well developed, well nourished, no acute distress
Chest - clear bilaterally
Abdomen - soft, non-tender, positive bowel sounds, no CVAT, no incisional pain or distention
Genitalia - normal
Rectal - normal
Skin - warm & dry with no rash
Neuro - AOx3, no motor deficits
Extremities - no clubbing, no cyanosis, no edema
Incision - clean, dry
Dressing - clean, dry, intact
Counseling
-
no changes
Care Review
Data Reviewed
Discussed with: IRAD and Family
CT Scan: Image Pers Reviewed
[2024-09-29] MEDS: NSS IV (14:30)
[2024-09-29] MEDS: MIRALAX 17 GRAMS PO (14:43)
[2024-09-29 15:00] VITALS: BP 90/58
[2024-09-29 18:03] VITALS: BP 113/70
--- NOTE | 2024-09-29 18:23 | PTCARENOTE ---
Patient called nurse to room reporting sharp chest pain under L breast that has been coming and going all day. Patient says she didn't want to report pain while her sister was visiting. Patient's face flushed. BP 113/70, HR 83. EKG done showing NSR.
Dr. Fernandez aware.
[2024-09-29] MEDS: LAMICTAL 50 MG PO (21:16)
[2024-09-29] MEDS: MELATONIN 5 MG PO (21:17)
--- NOTE | 2024-09-29 21:55 | W.PN.UPDATE ---
Update Note
Progress Note Update
2 view CXR ordered for patient's ongoing c/o Chest pain. VSS, pulse oximetry on room air 96%. EKG earlier was WNL. Will add incentive spirometry.
--- NOTE | 2024-09-29 22:00 | PTCARENOTE ---
Pt told this RN that she is still having pain under her left breast which was reported to the doctor earlier. Pt states she doesn't want to be a bother but isn't sure what to do. Pt states the pain is worse when sitting up, RR WNL, no SOB, VSS.
MANA Bach notified, CXR ordered and obtained. Will continue with current plan.
[2024-09-29 23:15] VITALS: BP 104/64
[2024-09-30] MEDS: SOLU-CORTEF 100 MG IV ×2 (01:27→08:12)
[2024-09-30] MEDS: STERILE WATER FOR INJECTION 10 ML IV ×2 (01:27→08:12)
[2024-09-30] MEDS: MERREM 500 MG IV ×2 (01:27→08:11)
[2024-09-30] MEDS: NSS 1000 IV (01:28)
[2024-09-30] MEDS: TYLENOL 650 MG PO (01:44)
[2024-09-30 07:00] VITALS: BP 98/60
[2024-09-30] MEDS: LEXAPRO 5 MG PO (08:12)
[2024-09-30] MEDS: NEURONTIN 200 MG PO (08:12)
[2024-09-30] MEDS: LAMICTAL 25 MG PO (08:12)
--- NOTE | 2024-09-30 09:52 | W.PN.HOSP.TC ---
Addendum entered and electronically signed by Elizabeth Fernandez MD 09/30/24 14:24:
ID recommends Cipro 750 mg twice daily for 4 weeks
total DC time 38 min
Original Note:
Today's Communication/Plan
-
see A/P
Possible DC after seen by ID
Assessment / Plan
Assessment / Plan
HPI: 59 yo F PHX adrenal insufficiency on chronic hydrocortisone, trigeminal neuralgia, HX shock due to adrenal crisis in April 2024, p/w acute Lt flank pain for 6 days, associated with low-grade fever and low blood pressure.
She went to and was referred to ER.
CT AP:
Exophytic mass arising from the lateral aspect of the mid to lower left kidney, corresponding to mass seen on earlier unenhanced examination. Based on morphologic appearance on unenhanced images as well as clinical history, this is felt to most
likely represent renal abscess/infected cyst. Renal cell neoplasia/renal cell carcinoma is still possible, felt to be less likely based on the enhanced images and the clinical history.
Multiple other renal cysts, which contain small calcifications, compatible with benign cysts with calcification.
Both adrenal glands are small and difficult to visualize, compatible with a history of adrenal insufficiency.
A/P:
# L Flank pain 2/2 renal abscess
# sepsis POA 2/2 above
s/p IR aspiration of left renal abscess/superinfected cyst 09/28
wound culture growing E coli, sensitivity reviewed
blood cultures negative, urine culture negative
cont Merrem
Tylenol prn for fever
urology and ID on board
# Hyponatremia likely hypovolemic, resolved after IVF
# History of [place] disease
Stress dose steroid continued
# Trigeminal neuralgia
Cont Citalopram, cont gabapentin, cont Lamictal
DVT ppx: Lovenox
Code Status: Full Code
DW family at bedside
DW ID
Anticipated Discharge: Within 24 hours
Subjective/Interval History
-
Date of Service: September 30, 2024
Objective Data
-
Labs:
Laboratory Results
09/30/24
09:03
WBC Pending
Hgb Pending
Hct Pending
Plt Count Pending
Sodium Pending
Potassium Pending
Chloride Pending
Carbon Dioxide Pending
BUN Pending
Creatinine Pending
Glucose Pending
Calcium Pending
Vital Signs:
Vital Signs
Temp Pulse Resp BP Pulse Ox
36.6 C 68 18 98/60 96
09/30/24 07:00 09/30/24 07:00 09/30/24 07:00 09/30/24 07:00 09/30/24 07:00
I&O
09/29/24 09/30/24 10/01/24
06:59 06:59 06:59
Intake Total 1480 / 1480 1440 / 1440
Balance 1480 / 1480 1440 / 1440
Review of Systems
-
All other systems: Reviewed and negative
Physical Exam
-
General: Well Developed, Well Nourished, No Apparent Distress, Comfortable and Conversant
HEENT: Normocephalic, Atraumatic and Moist Mucous Membranes
Respiratory: Clear to Auscultation and Non Labored Respirations; Negative Accessory Resp Muscle Use
Cardiac: Regular Rhythm and S1/S2
GI: Soft, Nontender, Nondistended and Normal Bowel Sounds
Musculoskeletal: No Clubbing, No Cyanosis and No Edema
Skin: Warm and Dry
Neuro: Awake and Alert
Psych: Calm and Intact Judgement/Insight
Data Reviewed
-
CT Scan: Report Reviewed by me
Labs: Labs Reviewed by me
[2024-09-30 09:56] LABS: Hematocrit 34.1 % (37.0-47.0); Hemoglobin 11.2 g/dL (12.0-16.0); Mean Corp Hgb Conc. 32.8 g/dL (33.0-37.0); Mean Corpuscular Hgb 28.9 pg (27.0-31.0); Mean Corpuscular Volume 87.9 fL (81.0-99.0); Mean Platelet Volume 8.8 fL (7.4-10.4); Platelet Count 344 10^3/uL (130-400); Red Blood Cell Count 3.88 10^6/uL (4.20-5.40); Red Cell Dist. Width 13.4 % (11.5-14.5); White Blood Cell Count 8.1 10^3/uL (4.8-10.8)
[2024-09-30] MEDS: NSS 250 IV (10:36)
[2024-09-30 10:56] LABS: Blood Urea Nitrogen 12 mg/dl (7-17); Calcium 8.5 mg/dl (8.4-10.2); Carbon Dioxide 24 mmol/L (22-30); Chloride 105 mmol/L (98-107); Estimated Creatinine Clearance 87 ml/min; Glucose 109 mg/dl (70-99); Potassium 3.9 mmol/L (3.5-5.1); Sodium 136 mmol/L (135-145); eGFR > 60.00
--- NOTE | 2024-09-30 11:50 | W.PN.ID1 ---
Date of Service
Date of Service: September 30, 2024
Today's Communication
plan at least a 4 week course 09/27-10/24
- follow up with me before 10/24, recheck cbc, cmp, esr and crp and CT a/p with contrast shortly before that visit
Assessment / Plan
Renal Abscess
Fevers
Leukocytosis
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
- had 45 ccs of pus aspirated from the kidney - grew E coli
- 3.1 cm transverse by 2.6 cm AP by 2.[address] imaging
- QTc 440 - acceptable
- ESR and CRP for baseline
- start high dose ciprofloxacin - this is a high bioavailability oral therapy
- plan at least a 4 week course 09/27-10/24
- follow up with me before 10/24, recheck cbc, cmp, esr and crp and CT a/p with contrast shortly before that visit
Chief Complaint
-: Other (Renal Abscess)
Subjective / Review of Systems
afebrile
mildly hypotensive - reports that her systolic bp is typically in the 90s
no drain placed
had 45 ccs of purulent fluid from the kidney 09/28, grew E coli
Vital Signs / Physical Exam
Vital Signs
Vital Signs
Temp Pulse Resp BP Pulse Ox
97.8 F 68 18 98/60 96
09/30/24 07:00 09/30/24 07:00 09/30/24 07:00 09/30/24 07:00 09/30/24 07:00
Physical Exam
Constitutional: No Acute Distress and Chronically Ill
Cardiovascular: Regular Rate and S1/S2; Negative Murmur or Rub
Pulmonary: Clear and Symmetric; Negative Wheezes or Rales
Gastrointestinal: Soft, Non Tender, Non Distended and Normal Bowel Sounds
Skin: Warm and Dry; Negative Rash or Jaundice
Objective Data
Lab Data
Lab Results
09/30/24 09:03
09/30/24 09:03
Estimated Creat Clear 87 ml/min 09/30/24 09:03
Total Bilirubin 0.8 mg/dl (0.2-1.3) 09/27/24 13:33
AST 22 U/L (14-36) 09/27/24 13:33
ALT 27 U/L (0-35) 09/27/24 13:33
Alkaline Phosphatase 97 U/L (38-126) 09/27/24 13:33
Most recent labs reviewed.
Wound/abscess/other Cult Preliminary 09/30/24-852
Moderate Escherichia coli
Organism 1 Escherichia coli
1. Escherichia coli
M.I.C. RX
--------- ---
Amoxicillin/Potas. Clavulanate 16/8 I
Ampicillin >16 R
Ampicillin/Sulbactam >16/8 R
Aztreonam <=4 S
Cefazolin 8 R
Cefepime <=2 S
Ceftazidime <=1 S
Ceftriaxone <=1 S
Ertapenem <=0.5 S
Ciprofloxacin <=0.25 S
Gentamicin <=2 S
Meropenem <=1 S
Piperacillin/Tazobactam 16 S
Tetracycline <=4 S
Tobramycin <=2 S
Trimethoprim/Sulfamethoxazole <=2/38 S
Micro Results:
09/28/24 20:00 Urine Culture - Final
Urine NO GROWTH
09/28/24 12:46 Wound Culture - Preliminary
Abscess Escherichia coli
Gram Stain - Preliminary
09/27/24 16:37 Blood Culture - Preliminary
Blood/Venous No Growth in 48 hours- Final report to follow
09/27/24 16:30 Blood Culture - Preliminary
Blood/Venous No Growth in 48 hours- Final report to follow
09/28/24 12:46 Anaerobic Culture - Preliminary
Abscess Culture pending. Anaerobic cultures are examined after 3
days incubation. Additional information to follow.
Care Review
Plan reviewed with: Physician (Dr Rebecca ortega, antibiotics)
--- NOTE | 2024-09-30 12:28 | CM ---
commercial account manager reviewed patient's chart and met with patient and patient lives with with son in a 2 story home, patient is independent with adl's and ambulation, no dme, patient is for possible discharge to home today no needs.
PCP: Gege Patton
Pharmacy: [facility] [place]
Plan; Home today no needs.
[2024-09-30] MEDS: CIPRO 500 MG PO (13:09)
[2024-09-30] MEDS: STERILE WATER FOR INJECTION IV (13:11)
--- NOTE | 2024-09-30 14:11 | W.DCSUMMARY ---
Discharge Summary
Discharge Data
Date of Admission: 09/27/24
Date of Discharge: 09/30/24
-
Pending Results: No
Hospital Course
Principal Diagnosis:
L Flank pain due to renal abscess/superinfected cyst, status post IR aspiration on 09/28/24.
Chronic Diagnoses:�
History of [place] disease on chronic hydrocortisone
Trigeminal neuralgia, on Citalopram, gabapentin, Lamictal
Consultations:�
Infectious disease
Urology
Interventional radiology
Procedures:�
IR aspiration of left renal abscess/superinfected cyst on 09/28/24.
Clinical course:�
This is a 59-year-old female, with past medical history as stated above, who presented with left flank pain and low-grade fever.
Problem 1:
L Flank pain 2/[address] AP noted exophytic mass arising from the lateral aspect of the mid to lower left kidney, this is felt to most likely represent renal abscess/infected cyst.
She underwent IR aspiration of the left renal abscess/superinfected cyst on 09/28.
The wound culture grew E coli, sensitivity reviewed.
Her blood cultures and urine culture were negative.
She received Merrem while in the hospital, and was discharged with Cipro 750 mg twice daily for 4 weeks per ID recommendation.
As for the rest of her medical problems, they were stable during her hospital stay.
Discharge Plan
-
Patient Disposition: Home (Routine Discharge)
Discharge Diagnosis/Procedures: L Flank pain due to small renal abscess (wound culture positive for E coli), status post IR aspiration of left renal abscess/superinfected cyst 09/28
Condition: Good
Diet: As tolerated
Activity: As tolerated
Driving Restrictions: As prior to admission
Referrals:
Gege Patton DO [Family Provider] - in less than 1 week
Akanksha Hollingsworth MD [Active] - in two to three weeks
Additional Discharge Medication Instructions: Continue cipro 750 mg po twice daily x4 weeks (course 09/27-10/24)
Prescriptions:
New
ciprofloxacin HCl 750 mg tablet
750 mg PO BID 28 Days Qty: 56 0RF
Continued
lamotrigine 25 mg Tablet
25 mg PO DAILY
lamotrigine 25 mg Tablet
50 mg PO HS
carboxymethylcellulose sodium [Refresh Tears] 0.5 % Drops
1 drp BOTH EYES QIDPRN PRN (Reason: dry eyes)
gabapentin 100 mg Capsule
200 mg PO TID
hydrocortisone 10 mg Tablet
20 mg PO DAILY
hydrocortisone 10 mg Tablet
10 mg PO HS
escitalopram oxalate 5 mg Tablet
5 mg PO DAILY
Discharge Orders:
Discharge Patient (As Directed); Ordered 09/30/24
Ordered By: Elizabeth Fernandez
Discharge Date and Time
Print Language: CZECH
[2024-09-30 15:00] VITALS: BP 113/69
[2024-09-30 15:37] LABS: Erythrocyte Sed Rate 5 mm/hour (0-20)
== END 2024-09-30 16:30 | disposition home or self-care (01) | DRG 871 ==
LOC: 4 WEST ACU 19:31
PROVIDERS: Radiology Diagnostic Radiology; Registered Nurse; Student in an Organized Health Care Education/Training Program; ADMITTING PHYSICIAN Internal Medicine; ATTENDING PHYSICIAN Internal Medicine; CONSULT PHYSICIAN Specialist; CONSULT PHYSICIAN Student in an Organized Health Care Education/Training Program; EMERGENCY PHYSICIAN Emergency Medicine; FAMILY PHYSICIAN Family Medicine
PROC: 0T913ZZ Drainage of Left Kidney, Percutaneous Approach (ICD-10-PCS; 2024-09-28)
DX: A41.9 Sepsis, unspecified organism (principal); N15.1 Renal and perinephric abscess; E27.1 Primary adrenocortical insufficiency; E87.1 Hypo-osmolality and hyponatremia; C64.2 Malignant neoplasm of left kidney, except renal pelvis; B96.20 Unspecified Escherichia coli [E. coli] as the cause of diseases classified elsewhere; G50.0 Trigeminal neuralgia; E86.1 Hypovolemia; N95.2 Postmenopausal atrophic vaginitis; M81.0 Age-related osteoporosis without current pathological fracture; G47.00 Insomnia, unspecified; E78.5 Hyperlipidemia, unspecified; N30.10 Interstitial cystitis (chronic) without hematuria; Z88.0 Allergy status to penicillin; K76.0 Fatty (change of) liver, not elsewhere classified; F41.9 Anxiety disorder, unspecified; D75.839 Thrombocytosis, unspecified; E04.2 Nontoxic multinodular goiter; Z80.3 Family history of malignant neoplasm of breast; Z87.440 Personal history of urinary (tract) infections; G43.909 Migraine, unspecified, not intractable, without status migrainosus
CPT/HCPCS: 50390; 71046; 74176; 74178; 76942; 80048; 80053; 81003; 81015; 82533; 83735; 85025; 85027; 85652; 86140; 87040; 87070; 87075; 87077; 87086; 87186; 87205; 93005; 96361; 96374; 96375; 99152; 99285; J2185; Q9967

== ENCOUNTER → 2024-10-10 06:22 | Outpatient (REF) | payer BC, SELFPAY ==
[2024-10-10 07:41] LABS: % Basophils 0.6 % (0-2); % Eosinophils 3.5 % (0-6); % Monocytes 9.8 % (1.7-9.3); % Neutrophils 61.1 % (42.2-75.2); Absolute Eosinophils 0.3 10^3/uL (0-0.7); Absolute Immature Granulocytes 0.1 10^3/uL (0-0.05); Absolute Lymphocytes 1.7 10^3/uL (1.2-3.4); Absolute Monocytes 0.7 10^3/uL (0.1-0.6); Absolute Neutrophils 4.4 10^3/uL (1.4-6.5); Hemoglobin 12.2 g/dL (12.0-16.0); Mean Corpuscular Hgb 29.5 pg (27.0-31.0); Mean Corpuscular Volume 89.4 fL (81.0-99.0); Mean Platelet Volume 8.6 fL (7.4-10.4); Nucleated Red Blood Cells % 0 %; Platelet Count 333 10^3/uL (130-400); Red Blood Cell Count 4.14 10^6/uL (4.20-5.40); Red Cell Dist. Width 13.8 % (11.5-14.5); White Blood Cell Count 7.1 10^3/uL (4.8-10.8)
[2024-10-10 08:31] LABS: ALT (SGPT) 52 U/L (0-35); AST (SGOT) 32 U/L (14-36); Albumin 3.8 g/dl (3.5-5.0); Alkaline Phosphatase 63 U/L (38-126); Blood Urea Nitrogen 11 mg/dl (7-17); Calcium 9.2 mg/dl (8.4-10.2); Carbon Dioxide 30 mmol/L (22-30); Chloride 107 mmol/L (98-107); Glucose 78 mg/dl (70-99); Potassium 3.7 mmol/L (3.5-5.1); Sodium 143 mmol/L (135-145); Total Bilirubin 0.6 mg/dl (0.2-1.3); Total Protein 5.9 g/dl (6.3-8.2); eGFR > 60.00
[2024-10-10 08:35] LABS: Erythrocyte Sed Rate 5 mm/hour (0-20)
[2024-10-10 09:26] LABS: C-Reactive Protein < 5.00 mg/L (0.0-10.00)
== END ==
LOC: REG 06:22
PROVIDERS: ATTENDING PHYSICIAN Student in an Organized Health Care Education/Training Program; FAMILY PHYSICIAN Family Medicine
DX: N15.1 Renal and perinephric abscess (principal)
CPT/HCPCS: 36415; 80053; 85025; 85652; 86140

== ENCOUNTER → 2024-10-15 07:36 | Outpatient (REF) | payer BC, SELFPAY | LOC: RAD 07:36 | PROVIDERS: ATTENDING PHYSICIAN Student in an Organized Health Care Education/Training Program; FAMILY PHYSICIAN Family Medicine | DX: N15.1 Renal and perinephric abscess (principal) | CPT/HCPCS: 74177; Q9967 ==

== ENCOUNTER → 2024-11-04 12:35 | Outpatient (REF) | payer BC, SELFPAY ==
[2024-11-04 13:31] LABS: % Basophils 0.7 % (0-2); % Eosinophils 4.2 % (0-6); % Immature Granulocytes 0.5 % (0-0.5); % Lymphocytes 18.5 % (20.5-51.1); % Monocytes 9.4 % (1.7-9.3); % Neutrophils 66.7 % (42.2-75.2); Absolute Basophils 0.1 10^3/uL (0-0.2); Absolute Eosinophils 0.3 10^3/uL (0-0.7); Absolute Lymphocytes 1.4 10^3/uL (1.2-3.4); Absolute Monocytes 0.7 10^3/uL (0.1-0.6); Absolute Neutrophils 4.9 10^3/uL (1.4-6.5); Hematocrit 41.1 % (37.0-47.0); Hemoglobin 13.5 g/dL (12.0-16.0); Mean Corp Hgb Conc. 32.8 g/dL (33.0-37.0); Mean Corpuscular Volume 88.4 fL (81.0-99.0); Nucleated Red Blood Cells % 0 %; Platelet Count 364 10^3/uL (130-400); Red Blood Cell Count 4.65 10^6/uL (4.20-5.40); White Blood Cell Count 7.3 10^3/uL (4.8-10.8)
[2024-11-04 13:55] LABS: Erythrocyte Sed Rate 1 mm/hour (0-20)
[2024-11-04 13:58] LABS: ALT (SGPT) 23 U/L (0-35); AST (SGOT) 23 U/L (14-36); Albumin 4.4 g/dl (3.5-5.0); Alkaline Phosphatase 59 U/L (38-126); Blood Urea Nitrogen 14 mg/dl (7-17); Calcium 9.6 mg/dl (8.4-10.2); Carbon Dioxide 28 mmol/L (22-30); Chloride 105 mmol/L (98-107); Glucose 93 mg/dl (70-99); Potassium 4.1 mmol/L (3.5-5.1); Sodium 141 mmol/L (135-145); Total Bilirubin 0.6 mg/dl (0.2-1.3); Total Protein 6.2 g/dl (6.3-8.2); eGFR > 60.00
[2024-11-04 14:03] LABS: C-Reactive Protein < 5.00 mg/L (0.0-10.00)
== END ==
LOC: REG 12:35
PROVIDERS: ATTENDING PHYSICIAN Student in an Organized Health Care Education/Training Program; FAMILY PHYSICIAN Family Medicine
DX: N15.1 Renal and perinephric abscess (principal)
CPT/HCPCS: 36415; 80053; 85025; 85652; 86140

== ENCOUNTER → 2024-11-06 07:50 | Outpatient (REF) | payer BC, SELFPAY | LOC: RAD 07:50 | PROVIDERS: ATTENDING PHYSICIAN Student in an Organized Health Care Education/Training Program; FAMILY PHYSICIAN Family Medicine | DX: N15.1 Renal and perinephric abscess (principal) | CPT/HCPCS: 74177; Q9967 ==

== ENCOUNTER 2024-12-16 19:17 | Emergency (ER) | payer BC, SELFPAY ==
[2024-12-16 19:20] VITALS: BP 116/79
[2024-12-16 19:59] LABS: % Basophils 0.3 % (0-2); % Eosinophils 1.9 % (0-6); % Immature Granulocytes 0.9 % (0-0.5); % Lymphocytes 24.6 % (20.5-51.1); % Monocytes 10.5 % (1.7-9.3); % Neutrophils 61.8 % (42.2-75.2); Absolute Eosinophils 0.1 10^3/uL (0-0.7); Absolute Immature Granulocytes 0.1 10^3/uL (0-0.05); Absolute Lymphocytes 1.7 10^3/uL (1.2-3.4); Absolute Monocytes 0.7 10^3/uL (0.1-0.6); Absolute Neutrophils 4.2 10^3/uL (1.4-6.5); Hematocrit 39.1 % (37.0-47.0); Hemoglobin 13.7 g/dL (12.0-16.0); Mean Corpuscular Hgb 29.4 pg (27.0-31.0); Mean Corpuscular Volume 83.9 fL (81.0-99.0); Mean Platelet Volume 8.2 fL (7.4-10.4); Nucleated Red Blood Cells % 0 %; Platelet Count 353 10^3/uL (130-400); Red Blood Cell Count 4.66 10^6/uL (4.20-5.40); Red Cell Dist. Width 12.9 % (11.5-14.5); White Blood Cell Count 6.8 10^3/uL (4.8-10.8)
[2024-12-16 20:12] LABS: ALT (SGPT) 39 U/L (0-35); AST (SGOT) 30 U/L (14-36); Albumin 4.4 g/dl (3.5-5.0); Alkaline Phosphatase 80 U/L (38-126); Blood Urea Nitrogen 21 mg/dl (7-17); Carbon Dioxide 22 mmol/L (22-30); Chloride 101 mmol/L (98-107); Glucose 136 mg/dl (70-99); Magnesium 1.8 mg/dl (1.6-2.3); Potassium 4.4 mmol/L (3.5-5.1); Sodium 131 mmol/L (135-145); Total Bilirubin 0.3 mg/dl (0.2-1.3); Total Protein 6.3 g/dl (6.3-8.2); eGFR > 60.00
[2024-12-16 20:41] LABS: TSH Reflex To Free T4 1.75 uIU/ml (0.47-4.68)
== END 2024-12-16 20:50 ==
LOC: EMR 19:17
PROVIDERS: EMERGENCY PHYSICIAN Emergency Medicine
DX: R79.89 Other specified abnormal findings of blood chemistry (principal); Z53.29 Procedure and treatment not carried out because of patient's decision for other reasons
CPT/HCPCS: 99281; 80053; 83735; 84443; 85025; 93005

== ENCOUNTER 2024-12-19 10:37 | Inpatient (IN) | payer BC, SELFPAY ==
[2024-12-16 21:26] VITALS: BP 128/87
[2024-12-16 22:39] VITALS: BMI 24.5
[2024-12-16 22:45] VITALS: BP 93/65
[2024-12-16 23:00] VITALS: BP 100/66
[2024-12-17] VITALS (8 sets, daily range): BP systolic 90–112; BP diastolic 60–78; PULSE 100–119; BMI 21.4
--- NOTE | 2024-12-17 00:21 | ED.GENMED ---
History of Present Illness
General
Chief Complaint: Abnormal Lab Value
Source: patient
Exam Limitations: none
Time Seen by Provider: 12/16/24 23:50
Nursing documentation reviewed up to this point in time: agreed with
History of Present Illness
History of Present Illness:
The patient is a very pleasant 59-year-old female with a past medical history of Manatee's disease who reports that she was sent to the ED because her outpatient blood work showed elevated potassium. Patient's potassium was rechecked in the ED and
is 4.4. Patient also had an outpatient renal ultrasound which showed a persistent left renal abscess. She expresses frustration that despite taking several weeks of Bactrim, the abscess is still there. Patient describes left flank pain that makes
it difficult to sleep at night. She denies chills and fever.
Past History
Past History
ED Past Medical History: Other (Manatee's disease, trigeminal neuralgia)
ED Past Surgical History: Other
Social History
Tobacco: Non-smoker
Alcohol: None
Drug: None
Personal: Other
Living: with family
Employment: Employed
Family History
Family History: Cancer (Aunt breast cancer in her 50s, sister with breast cancer in her 40s, first cousin with ovarian cancer in her 40s)
Review of Systems
Review of Systems
Allergies reviewed?: Yes
All Other Systems: ROS reviewed and negative except as documented in HPI and ROS
Constitutional: Reports no symptoms
EENT: Reports no symptoms
Respiratory: Reports no symptoms
Cardiac: Reports no symptoms
ABD/GI: Reports no symptoms
: Reports flank pain
Musculoskeletal: Reports no symptoms
Skin: Reports no symptoms
Neurological: Reports no symptoms
Endocrine: Reports no symptoms
Hematologic/Lymphatic: Reports no symptoms
Psychiatric: Reports no symptoms
Phy Exam
Physical Exam
Physical Exam:
Physical Exam
General: no apparent distress, not acutely ill
Neck: supple. no meningeal signs. normal psoterior pharynx
Heart: s1/s2 regular rate and rhythm, no murmur. equal radial pulses.
Lungs: no acute respiratory distress. clear bilaterally
Abdomen: normal bowel sounds. Mild left flank pain
Neuro: alert and oriented. no focal neurological deficits
Skin: no rash
Psychiatric: well kept. interactive and cooperative
Extremities: no edema. no calf tenderness. negative homans. good distal pulses
Course
Orders/Labs/Results
Orders:
Orders
12/17/24 01:07
CefTRIAXone [Rocephin] 1,000 mg IV NOW STA
12/17/24 02:06
Sterile Water [Sterile Water For Injection] 20 ml .ROUTE .STK-MED
12/17/24 03:00
Flush (0.9% Sodium Chloride) [Flush (Nss)] See Dose Instructions IV PER PROTOCOL
Vital Signs
Initial and Last Documented VS:
Initial Vital Signs
Temp Pulse Resp BP Pulse Ox
98.2 F 76 20 128/87 99
12/16/24 21:26 12/16/24 21:26 12/16/24 21:26 12/16/24 21:26 12/16/24 21:26
Last Documented Vital Signs
Temp Pulse Resp BP Pulse Ox
98.2 F 69 18 93/65 96
12/16/24 21:26 12/16/24 22:50 12/16/24 22:50 12/16/24 22:45 12/16/24 22:50
MDM/Problems Addressed
Differential Diagnosis Includes:
Left renal abscess, UTI, bacteremia
MDM/Problems Addressed:
Patient presents with chronic left flank pain with known left renal abscess
Chronic conditions affecting care:
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
*Radiology
Radiology exam reviewed: radiology read reviewed (Ultrasound report reviewed from yesterday)
*Pulse Oximetry
Patient hypoxic: no
*EKG
Interpreted by ED Provider?: NA
*Lining Ironer Interpretation
Rate: Lining Ironer- N/A
*Critical Care Note
Total Time (30-74mins, 75-104mins- exclusive of procedures): Not Applicable
Data Reviewed
Review of Other/Old Records Reveals: Discharge Summary (Discharge summary reviewed from September 2024 which discussed patient's left renal abscess and that it had been aspirated for culture)
Source: patient
Patient Management
Social determinants of health affecting care: Living situation and Strong social support
Discussion with other providers: Hospitalist and Other (Dr. Keya Maradiaga infectious disease)
Escalation/DeEscalation of care consider admission/obs:
Given patient has persistent renal abscess despite oral Bactrim, decision made to admit patient for IV antibiotics and urology consult
ED Attending Note
-
Portions of this chart may have been created with voice recognition software.� Occasional wrong word or��sound alike� substitutions may have occurred due to the inherent limitations of voice recognition software.
Discharge Plan
Departure
Patient Disposition: Admit
Date of Disposition: 12/17/24
Time of Disposition: 00:19
Admit to: Med/Surg
Presentation/result/management discussed w/ accepting MD/DO: Hospitalist
Patient with high blood pressure during this ER visit?: No
Condition: Good
Covid-19: Not Applicable
Discharge Problem:
Abscess of left kidney
Prescriptions:
No Action
lamotrigine 25 mg Tablet
25 mg PO DAILY
lamotrigine 25 mg Tablet
50 mg PO HS
carboxymethylcellulose sodium [Refresh Tears] 0.5 % Drops
1 drp BOTH EYES QIDPRN PRN (Reason: dry eyes)
gabapentin 100 mg Capsule
200 mg PO TID
hydrocortisone 10 mg Tablet
20 mg PO DAILY
hydrocortisone 10 mg Tablet
10 mg PO HS
escitalopram oxalate 5 mg Tablet
5 mg PO DAILY
ciprofloxacin HCl 750 mg tablet
750 mg PO BID 28 Days Qty: 56 0RF
Referrals:
Gege Patton DO [Family Provider, Family Practice]
Interventions
Interventions:
*Risk Screen - Suicide Last Done: 12/16/24 22:39
*General Assessment Last Done: 12/16/24 21:26
*Neglect/Abuse Screening Last Done: 12/16/24 22:39
*ED- Fall Risk Assessment Last Done: 12/16/24 22:39
*ED COVID-19 Vaccine History Last Done: 12/16/24 22:50
Discharge Date and Time
Print Language: CHINESE
[2024-12-17] MEDS: ROCEPHIN 1000 MG IV (02:15)
--- NOTE | 2024-12-17 03:50 | HPS.HSE ---
Family Physician
-
Family Physician: Gege Patton
Chief Complaint
-
L Flank Pain
History of Present Illness
Patient is a 59y F with PMH significant for Jassi's disease and L Perinephric Abscess / Infected Renal Cyst who presents to ED complaining of L flank pain. Patient is currently on Bactrim for abscess. She was sent for routine labs today and
called to come to the ED due to hyperkalemia. Labs were repeated here and potassium was normal - likely lab error / hemolysis. During ED visit, patient complained of ongoing L flank discomfort. No fevers or chills. No dysuria / pyuria /
hematuria. No N/V/D. Patient had recent outpatient US showing improvement in - but not resolution of - L renal abscess.
Medical History
Past Medical History
Past Medical History: Reports Other
Additional Past Medical History:
Beaufort disease
Postmenopausal atrophic vaginitis
Multinodular goiter
Renal cyst
Osteoporosis
Insomnia
Hyperlipidemia
Chronic interstitial cystitis
Past Surgical History: Reports Other
Social History
Tobacco: Non-smoker
Alcohol: None
Drug: None
Family History
Family History: Not pertinent
Allergies / Home Medications
Allergies reflects when Allergies were last updated in [facility].
Home Medications with original date entered in [facility]
Allergy/Medication List:
Allergies
Allergy/AdvReac Type Severity Reaction Status Date / Time
Penicillins Allergy Intermediate stiff Verified 12/16/24 21:26
neck/LIAO
Home Medications
carboxymethylcellulose sodium 0.5 % eye drops (Refresh Tears) 1 drp BOTH EYES QIDPRN PRN dry eyes 09/27/24
escitalopram oxalate 5 mg tablet 5 mg PO DAILY 09/27/24
gabapentin 100 mg capsule 300 mg PO HS 09/27/24
fludrocortisone 0.1 mg tablet 0.05 mg PO QPM 12/17/24
gabapentin 100 mg tablet 200 mg PO BID@0800,1400 12/17/24
hydrocortisone 20 mg tablet 10 mg PO QPM 12/17/24
hydrocortisone 20 mg tablet 40 mg PO DAILY 12/17/24
melatonin 10 mg tablet 10 mg PO HS PRN sleep 12/17/24
sulfamethoxazole 800 mg-trimethoprim 160 mg tablet (Bactrim DS) 1 tab PO BID 12/17/24
Review of Systems
-
History Source: Patient
A 12 point ROS was completed and negative except as noted: Yes
Constitutional: Reports Fatigue; Denies Fever or Chills
Respiratory: Denies Cough or Trouble Breathing
Cardiac: Denies Chest Pain or Palpitations
Abdomen/GI: Denies Abdominal Pain, Nausea, Vomiting or Diarrhea
: Reports Flank Pain; Denies Dysuria or Frequency
Musculoskeletal: Denies Joint Pain or Edema
Neurological: Denies Dizzy or Headache
Psych: Denies Depression or Anxiety
Physical Exam
Vital Signs
Vital Signs
Temp Pulse Resp BP Pulse Ox
98.2 F 68 18 112/78 94
12/16/24 21:26 12/17/24 03:00 12/17/24 03:00 12/17/24 00:56 12/17/24 03:00
Physical Exam
General: Other (59y F in no distress.)
HEENT: Moist mucous membranes
Respiratory: Clear; No Wheezes, Rales or Rhonchi
Cardiac: S1/S2 and Regular Rhythm; No Murmur
GI: Soft, Non Tender, Non Distended and Normal Bowel Sounds
Genito-urinary: Other (Pos L CVAT.)
Musculoskeletal: No Clubbing, No Cyanosis and No Edema
Neuro: AO x 3
Impression/Plan
-
A/P: Patient is a 59y F with PMH significant for Beaufort's disease and known L Perinephric Abscess / Infected Renal Cyst who presents to ED complaining of L flank pain.
L Perinephric Abscess / Infected Renal Cyst
- Observe overnight for further evaluation and treatment.
- US done 12/16 shows L kidney lateral midpole lesion measuring 1.4 x 0.8 x 0.7cm.
- This is significantly smaller than on initial diagnosis and decreased from most recent (October) CT when it was 1.3 x 1.3 x 1.5.
- Patient is afebrile and non-toxic - though she does continue to complain of flank discomfort.
- Does not appear that this small lesion is amenable to drain placement or even repeat aspiration.
- Would continue current abx regimen for now pending further ID input.
- Does not seem that surgical / Urologic intervention would be warranted given decrease in size / non-toxic patient / etc.
- ? imaging end-point - especially if this was a cyst that became infected, i.e. would not expect it to fully 'resolve' on imaging.
Hyperkalemia
- Lab error. Repeat K = 4.4.
Beaufort's Disease
- Stable. Continue usual steroid regimen for now.
- Monitor for any decompensation, hypotension, etc.
Trigeminal Neuralgia
- Stable. Continue gabapentin. Increase to 300mg TID for improved pain control / flank pain.
DVT Prophylaxis: SCDs
Code Status: Full
[2024-12-17] MEDS: NSS 1000 IV ×2 (05:29→19:30)
[2024-12-17 05:45] LABS: Hematocrit 38.6 % (37.0-47.0); Hemoglobin 13.4 g/dL (12.0-16.0); Mean Corp Hgb Conc. 34.7 g/dL (33.0-37.0); Mean Corpuscular Hgb 29.1 pg (27.0-31.0); Mean Corpuscular Volume 83.7 fL (81.0-99.0); Mean Platelet Volume 8.4 fL (7.4-10.4); Platelet Count 319 10^3/uL (130-400); Red Blood Cell Count 4.61 10^6/uL (4.20-5.40); Red Cell Dist. Width 13.2 % (11.5-14.5); White Blood Cell Count 6.9 10^3/uL (4.8-10.8)
--- NOTE | 2024-12-17 05:48 | EDRN ---
Pt c/o IVF infusing 'too fast' at ordered rate of 100ml/hr and causing her discomfort. IV site assessed and intact. Pt requesting IVF infuse at a slower rate. MANA Lopez notified.
[2024-12-17 06:23] LABS: Blood Urea Nitrogen 17 mg/dl (7-17); Calcium 9.2 mg/dl (8.4-10.2); Carbon Dioxide 22 mmol/L (22-30); Chloride 103 mmol/L (98-107); Estimated Creatinine Clearance 64 ml/min; Glucose 90 mg/dl (70-99); Potassium 4.5 mmol/L (3.5-5.1); Sodium 132 mmol/L (135-145); eGFR > 60.00
--- NOTE | 2024-12-17 09:23 | CON.ID ---
Consultation
-
Date/Time Consultation Requested: 12/17/24 5:11
Date/Time Consultation Performed: 12/17/24 9:23
Requesting Provider: Dr Angela
Performing Provider: Dr Hollingsworth
Reason for Consultation: L Perinephric Abscess / Infected Renal Cyst
Chief Complaint / Past History
Chief Complaint
L flank pain, elevated K on outpatient labs
History of Present Illness
Ms Kemp is a pleasant 59 year old female with history of Addisons disease on a chronic low level of steroids who was found to have a renal abscess 09/28/24 due to E coli shortly after a recent urinary tract infection.� The abscess was 2.9 x 3.4 x
2.7 cm and she underwent aspiration of the collection 09/27/24 with IR yielding 40 ccs of puss, culture grew a pansensitive E coli; no drain was placed.� She was started on a course of ciprofloxacin 750 mg PO BID initially planned for 4 weeks of
therapy 09/27-10/24; follow up labs 09/30 showed ESR 5, CRP 5.� She completed the 4 weeks of treatment on ciprofloxacin and follow up lab work showed no leukocytosis and CRP <5, ESR also normal, but CT 10/15 showed persistent abscess with rim enhancement
down to 1.4 x 1.4 x 1.7 cm from 2.4 x 2.4 x 2.7 cm; I extended the ciprofloxacin another two weeks (6 weeks total at this point) however follow up CT 11/06 with ongoing slow improvement with abscess down to 1.3 x 1.3 x 1.5 cm.� She presented for
follow up and noted no fevers, chills or unintentional weight loss but ongoing vague L flank tenderness near the biopsy site and diffuse joint pains with the ciprofloxacin which was new.� We switched to bactrim, she was advised to limit her fruit
intake. On 12/16 she had follow up US showing further improvement in the lesion down to 1.4 x 0.8 x 0.7 cm; lab work notable for normal Cr at 0.9 K was elevated to 6.4 and she was referred to the ER by her PCP where a follow up K was 4.4. She
reports no fevers, chills, malaise or dysuria but does have ongoing, mild/moderate L flank pain which has not yet resolved. ID is consulted for assistance with managment.
Past History
Additional Past Medical History:
Jassi disease
Postmenopausal atrophic vaginitis
Multinodular goiter
Renal cyst
Osteoporosis
Insomnia
Hyperlipidemia
Chronic interstitial cystitis
Additional Past Surgical History:
per hpi
Allergy History:
Penicillins Allergy (Intermediate, Verified 12/16/24 21:26)
stiff neck/LIAO
Medications Reviewed: Yes
Social History
Tobacco: Non-Smoker
Alcohol: None
Drug: None
Family History
Family History: Not Pertinent
Review of Systems
Review of Systems
General: Negative Fever or Chills
All systems: All other systems were reviewed and were negative
Vital Signs
Temp Pulse Resp BP Pulse Ox
98.2 F 64 17 112/78 93
12/16/24 21:26 12/17/24 05:15 12/17/24 05:39 12/17/24 00:56 12/17/24 05:15
Physical Exam
Physical Exam
Constitutional: No Acute Distress
Cardiovascular: Regular Rate and S1/S2; Negative Murmur or Rub
Pulmonary: Clear and Symmetric; Negative Wheezes, Rales or Rhonchi
Gastrointestinal: Soft, Non Tender, Non Distended and Normal Bowel Sounds
Genito-Urinary: Other (L flank tenderness ); Negative Suprapubic Tenderness
Skin: Warm and Dry; Negative Rash or Jaundice
Neurological: Awake
Lab / Diagnostic Study Results
12/17/24 05:34
12/17/24 05:34
Assessment / Plan
Renal Abscess due to E coli
- 3/15 s/p aspiration of abscess yielding 40 ccs of puss
- abscess was initially 2.9 x 3.4 x 2.7 cm at follow up US yesterday the collection is down to 1.4 x 0.8 x 0.7 cm; given overall decrease in size I suspect this was initially an abscess not a cyst
- she will undergo repeat aspiration with IR today if feasible
- she has completed about 11 week of high bioavailability oral therapy (first ciprofloxacin, currently on bactrim) with notable improvement but residual collection
- plan another 6 weeks will do IV ceftriaxone, if residual fluid after this third course then I would stop and observe clinically
- follow up in ID clinic in about 5-[address], cbc and bmp shortly prior to that visit. Given that ESR and CRP have remained normal, further levels unlikely to impact management.
Care Review
Plan reviewed with: Physician (Dr Vazquez, antibiotics)
--- NOTE | 2024-12-17 09:36 | W.PN.HOSP.TC ---
Today's Communication/Plan
-
see bold
Assessment / Plan
Assessment / Plan
A/P: Patient is a 59y F with PMH significant for Jassi's disease and known L Perinephric Abscess / Infected Renal Cyst who presents to ED complaining of L flank pain.
L Perinephric Abscess / Infected Renal Cyst
- US done 12/16 shows L kidney lateral midpole lesion measuring 1.4 x 0.8 x 0.7cm.
- This is significantly smaller than on initial diagnosis and decreased from most recent (October) CT when it was 1.3 x 1.3 x 1.5.
- Patient is afebrile and non-toxic - though she does continue to complain of mild flank discomfort with pressure.
- Appreciate ID input, who has transition patient from oral Bactrim to Rocephin 2 g IV every 24 hours
- Appreciate urology input, IR has been consulted for drainage
- Possible discharge on IV antibiotics after drainage
Hyperkalemia
- Lab error. Repeat K has been normal yesterday and today.
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
- Stable. Continue usual steroid regimen for now.
- Monitor for any decompensation, hypotension, etc.
Trigeminal Neuralgia
- Stable. Continue gabapentin. Increase to 300mg TID for improved pain control / flank pain.
DVT Prophylaxis: SCDs
Code Status: Full
Physical Exam
General: No acute distress
HEENT: Normocephalic, Atraumatic, EOMI, MMM
Respiratory: Clear to Auscultation bilaterally
Cardiac: Normal S1/S2, Regular Rate and Rhythm
GI: Soft, Nontender, Nondistended, Normal Bowel Sounds
: Mild left CVA tenderness
Extremities: No Clubbing, Cyanosis, or Edema
Neuro: Nonfocal/Grossly Intact
Psych: Calm, Cooperative
Derm: No Visible lesions
Anticipated Discharge: Within 24 hours
Subjective/Interval History
-
Date of Service: December 17, 2024
Patient reports left flank discomfort only with pressure, 2 out of 10 in intensity. No fever, no chest pain, no shortness of breath.
Objective Data
-
Labs:
Laboratory Results
12/17/24
05:34
WBC 6.9
Hgb 13.4
Hct 38.6
Plt Count 319
Sodium 132 L
Potassium 4.5
Chloride 103
Carbon Dioxide 22
BUN 17
Creatinine 0.8
Glucose 90
Calcium 9.2
Vital Signs:
Vital Signs
Temp Pulse Resp BP Pulse Ox
98.2 F 64 17 112/78 93
12/16/24 21:26 12/17/24 05:15 12/17/24 05:39 12/17/24 00:56 12/17/24 05:15
[2024-12-17] MEDS: HYDROCORTONE/CORTEF 40 MG PO (09:48)
[2024-12-17] MEDS: LEXAPRO 5 MG PO (09:48)
[2024-12-17] MEDS: NEURONTIN 300 MG PO ×3 (09:48→21:27)
--- NOTE | 2024-12-17 10:05 | CONS.URO ---
Consultation
-
Date/Time Consultation Performed: 12/17/2024 1237
Performing Provider: Daniel
Reason for Consultation: Left Renal Abscess
Medical History
History of Present Illness
ED admission note, excerpted: '59y F with PMH significant for Tarrant's disease and L Perinephric Abscess / Infected Renal Cyst who presents to ED complaining of L flank pain. Patient is currently on Bactrim for abscess. She was sent for
routine labs today and called to come to the ED due to hyperkalemia. Labs were repeated here and potassium was normal - likely lab error / hemolysis. During ED visit, patient complained of ongoing L flank discomfort. No fevers or chills. No
dysuria / pyuria / hematuria. No N/V/D. Patient had recent outpatient US showing improvement in - but not resolution of - L renal abscess.'
09/27- admission
09/28/2024 IRad performed percutaneous aspiration of 45 ml of pus from abscess of lateral aspect of left kidney
was discharged on 28 days of Cipro [750 mg bid] per Dr Ashley Hollingsworth
Past Medical History
Past Medical History: Other (Tarrant disease Postmenopausal atrophic vaginitis Multinodular goiter Renal cyst Osteoporosis Insomnia Hyperlipidemia Chronic interstitial cystitis)
Allergies/Home Medications
Allergies
Allergy/AdvReac Type Severity Reaction Status Date / Time
Penicillins Allergy Intermediate stiff Verified 12/16/24 21:26
neck/LIAO
Home Medications
�Medication �Instructions �Recorded �Confirmed �Type
carboxymethylcellulose sodium 0.5 1 drp BOTH EYES QIDPRN PRN dry eyes 09/27/24 12/17/24 History
% eye drops (Refresh Tears)
escitalopram oxalate 5 mg tablet 5 mg PO DAILY 09/27/24 12/17/24 History
gabapentin 100 mg capsule 300 mg PO HS 09/27/24 12/17/24 History
fludrocortisone 0.1 mg tablet 0.05 mg PO QPM 12/17/24 12/17/24 History
gabapentin 100 mg tablet 200 mg PO BID@0800,1400 12/17/24 12/17/24 History
hydrocortisone 10 mg tablet 5 mg PO QPM 12/17/24 12/17/24 History
hydrocortisone 10 mg tablet 20 mg PO DAILY 12/17/24 12/17/24 History
melatonin 10 mg tablet 10 mg PO HSPRN PRN sleep 12/17/24 12/17/24 History
sulfamethoxazole 800 1 tab PO BID 12/17/24 12/17/24 History
mg-trimethoprim 160 mg tablet
(Bactrim DS)
Physical Exam
Vital Signs
Vital Signs
Temp Pulse Resp BP Pulse Ox
98.2 F 72 17 98/72 98
12/16/24 21:26 12/17/24 09:50 12/17/24 05:39 12/17/24 09:50 12/17/24 09:50
Lab / Testing Results
Laboratory Results
12/17/24 05:34
12/17/24 05:34
Physical Exam
supine on ED gurney while right PICC line is being placed
General: No Apparent Distress
Neuro: Awake and Alert
Psych: Calm and Intact Judgement
Assessment / Plan
-
persistent left renal abscess
options d/w pt:
repeat percutaneous drainage of abscess by IRad
or
Robotic Renal Cyst/Abscess removal
She would prefer less invasive option [IRad] at this point
Data Reviewed
-
CT Scan: Image personally visualized and interpreted
Ultrasound: Image personally visualized and interpreted
Lab Data: Labs Reviewed
Old Records: Reviewed
[2024-12-17] MEDS: TYLENOL 650 MG PO ×2 (11:44→21:27)
--- NOTE | 2024-12-17 15:14 | CM ---
CM reviewed chart and met with pt in ED. IA completed, pt lives in [address] [place] [address] with her disabled son. No [facility]. No DME in the home. Discussed IV antibiotics and available agencies, pt chose [facility].
Discussion with ID, will require home antibiotics, script received. Referral and script faxed to [facility]. 100% covered as yearly OOP has been met. [facility] will provide PICC care.
Plan for home delivery/teaching at 2pm tomorrow. [facility] to reach out to pt in am.
CM later advised likely IR drainage today. Pt is Obs, Obs form completed and copy placed on chart.
PCP: Gege Patton
Pharmacy: [facility]
Plan: Home with [facility]
--- NOTE | 2024-12-17 16:12 | W.PN.UPDATE ---
Update Note
Progress Note Update
- IR consulted for aspiration of recurrent L renal abscess
- Pt known to us, having undergone prior US guided aspiration in September, which yielded about 4-5 mL of fluid. She has been on several courses of Abx since then and repeat outpatient US yesterday showed a small residual abscess along the lateral
margin of the L kidney. She complains of L flank discomfort. Non-toxic appearance.
- On my review of the imaging, there is a small exophytic lesion along the lateral margin of the Left kidney measuring slightly bigger than a cm. It appears to be thick walled with central hypoechoic focus. I suspect there is only minimal fluid
present.
- Reviewed options with patient. We can attempt to re-aspirate but warned that this may not yield any fluid and may not help with her discomfort. Risks are low. She wishes to go ahead with aspiration. Will make NPO past midnight.
[2024-12-17] MEDS: ROCEPHIN 2000 MG IV (17:27)
[2024-12-17] MEDS: STERILE WATER FOR INJECTION 20 ML IV (17:28)
--- NOTE | 2024-12-17 18:10 | PTCARENOTE ---
Pt received from the ED via stretcher. Transport was w/o incident. Pt is AAOx3, HRR, lungs are clear, resp. easy. VSS, Pt is afebrile. Pt c/o left flank pain rating her pain 2/10 and declines pain med at this time. Pt instructed on plan of care. Pt
verbalized understanding of instructions. Call eubanks is within reach.
[2024-12-17] MEDS: CORTEF 5 MG PO (19:29)
[2024-12-17] MEDS: FLORINEF 0.05 MG PO (20:25)
[2024-12-17] MEDS: MELATONIN 10 MG PO (21:30)
[2024-12-18] VITALS (13 sets, daily range): BP systolic 65–118; BP diastolic 57–73; PULSE 58–79
[2024-12-18] MEDS: NSS 1000 IV (05:40)
[2024-12-18 06:32] LABS: PT 13.5 Sec (11.4-14.6)
[2024-12-18] MEDS: HYDROCORTONE/CORTEF 40 MG PO (08:16)
[2024-12-18] MEDS: LEXAPRO 5 MG PO (08:16)
[2024-12-18] MEDS: NEURONTIN 300 MG PO ×3 (08:16→21:27)
[2024-12-18] MEDS: TYLENOL 650 MG PO ×2 (08:30→18:05)
--- NOTE | 2024-12-18 09:47 | W.PN.HOSP.TC ---
Today's Communication/Plan
-
Discharge on IV antibiotics after aspiration by IR in the afternoon
Assessment / Plan
Assessment / Plan
A/P: Patient is a 59y F with PMH significant for Denver's disease and known L Perinephric Abscess / Infected Renal Cyst who presents to ED complaining of L flank pain.
L Perinephric Abscess / Infected Renal Cyst
- US done 12/16 shows L kidney lateral midpole lesion measuring 1.4 x 0.8 x 0.7cm.
- This is significantly smaller than on initial diagnosis and decreased from most recent (October) CT when it was 1.3 x 1.3 x 1.5.
- Patient is afebrile and non-toxic - though she does continue to complain of mild flank discomfort with pressure.
- Appreciate ID input, who has transition patient from oral Bactrim to Rocephin 2 g IV every 24 hours for 6 weeks, PICC inserted, case management has set up outpatient IV antibiotic infusions
- Appreciate urology input, IR has been consulted for drainage
- Discussed with ID, patient can be discharged on IV antibiotics after aspiration by IR today
- Follow-up with PCP in 1 week, and ID in the office in 5-6 weeks, she will need repeat CT of the abdomen and pelvis, CBC, BMP
Hyperkalemia
- Lab error. Repeat K has been normal yesterday and today.
Jassi's Disease
- Stable. Continue usual steroid regimen for now.
- Monitor for any decompensation, hypotension, etc.
Trigeminal Neuralgia
- Stable. Continue gabapentin. Increase to 300mg TID for improved pain control / flank pain.
DVT Prophylaxis: SCDs
Code Status: Full
Physical Exam
General: No acute distress
HEENT: Normocephalic, Atraumatic, EOMI, MMM
Respiratory: Clear to Auscultation bilaterally
Cardiac: Normal S1/S2, Regular Rate and Rhythm
GI: Soft, Nontender, Nondistended, Normal Bowel Sounds
: Mild left CVA tenderness
Extremities: No Clubbing, Cyanosis, or Edema
Neuro: Nonfocal/Grossly Intact
Psych: Calm, Cooperative
Derm: No Visible lesions
Anticipated Discharge: Within 24 hours
Subjective/Interval History
-
Date of Service: December 18, 2024
Patient denies any left flank pain or discomfort. No fever, no nausea, no vomiting. No chest pain, no shortness of breath.
Objective Data
-
Labs:
Laboratory Results
12/18/24
06:11
PT 13.5
INR 1.00
Vital Signs:
Vital Signs
Temp Pulse Resp BP Pulse Ox
97.8 F 65 16 90/60 97
12/18/24 07:25 12/18/24 07:25 12/18/24 07:25 12/18/24 07:25 12/18/24 07:25
I&O
12/17/24 12/18/24 12/19/24
06:59 06:59 06:59
Intake Total 1679 / 1680
Balance 1679 / 168
--- NOTE | 2024-12-18 10:39 | CM ---
PICC information & xray faxed to Danielle at [facility]
Patient to go to IR today
per nursing who spoke with hospitalist patient to be discharged today
Spoke with Danielle from [facility] - she states she will come to bedside to teach today & then will anticipate 10pm tonite delivery of IV abx.
patient will have dose IV today prior to discharge
PLAN: Home with IV antibiotic
daughter to transport
--- NOTE | 2024-12-18 15:07 | W.PN.ID1 ---
Date of Service
Date of Service: December 18, 2024
Today's Communication
- abscess was initially 2.9 x 3.4 x 2.7 cm at follow up US yesterday the collection is down to 1.4 x 0.8 x 0.7 cm; given overall decrease in size I suspect this was initially an abscess not a cyst
- she will undergo repeat aspiration with IR today if feasible (yesterday delayed) - will follow up report
- she has completed about 11 week of high bioavailability oral therapy (first ciprofloxacin, currently on bactrim) with notable improvement but residual collection
- plan another 6 weeks will do IV ceftriaxone, if residual fluid after this third course then I would stop and observe clinically
- follow up in ID clinic in about 5-[address], cbc and bmp shortly prior to that visit. Given that ESR and CRP have remained normal, further levels unlikely to impact management.
Assessment / Plan
Renal Abscess due to E coli
- 09/28 s/p aspiration of abscess yielding 40 ccs of puss
- abscess was initially 2.9 x 3.4 x 2.7 cm at follow up US yesterday the collection is down to 1.4 x 0.8 x 0.7 cm; given overall decrease in size I suspect this was initially an abscess not a cyst
- she will undergo repeat aspiration with IR today if feasible (yesterday delayed) - will follow up report
- she has completed about 11 week of high bioavailability oral therapy (first ciprofloxacin, currently on bactrim) with notable improvement but residual collection
- plan another 6 weeks will do IV ceftriaxone, if residual fluid after this third course then I would stop and observe clinically
- follow up in ID clinic in about 5-[address], cbc and bmp shortly prior to that visit. Given that ESR and CRP have remained normal, further levels unlikely to impact management.
Chief Complaint
-: Other (renal abscess)
Subjective / Review of Systems
afebrile
bp stable
she is to undergo repeat aspiration today
Vital Signs / Physical Exam
Vital Signs
Vital Signs
Temp Pulse Resp BP Pulse Ox
97.8 F 65 16 90/60 97
12/18/24 07:25 12/18/24 07:25 12/18/24 07:25 12/18/24 07:25 12/18/24 07:25
Physical Exam
Constitutional: No Acute Distress
Cardiovascular: Regular Rate and S1/S2; Negative Murmur or Rub
Pulmonary: Symmetric and Non Labored; Negative Wheezes or Rales
Gastrointestinal: Non Distended
Skin: Dry; Negative Rash or Jaundice
Neurological: Awake
Objective Data
Lab Data
Lab Results
12/17/24 05:34
12/17/24 05:34
PT 13.5 Sec (11.4-14.6) 12/18/24 06:11
INR 1.00 12/18/24 06:11
Estimated Creat Clear 64 ml/min 12/17/24 05:34
Most recent labs reviewed.
--- NOTE | 2024-12-18 17:20 | PTCARENOTE ---
Pt received from IR via stretcher. Pt is Drowsy, slow speech. Pt reports sharp, stabbing pains under her left breast. Denies heaviness or crushing pain. Per report from IR Nurse, Pt began with pain to left diaphram after procedure. VS:
98.3-64-16-113/73, pulse ox 100RA. Hospitalist on cross coverage notified and orders received for Lab work, Ekg and CXR. Pt refusing CXR at this time. No SOB noted. Will continue to monitor closely. Call eubanks within reach.
--- NOTE | 2024-12-18 18:00 | W.PN.UPDATE ---
Update Note
Progress Note Update
patient with 10/10 chest pain under L breast area - no SOB. No fever/chills. Just returned from IR aspiration attempt. EKG with NSR and no ischemia. Labs ordered. CXR ordered (pt stating she may refuse CXR study). Offered pain meds, she is opting
for Tylenol at this time.
[2024-12-18] MEDS: STERILE WATER FOR INJECTION 20 ML IV (18:04)
[2024-12-18] MEDS: ROCEPHIN 2000 MG IV (18:04)
--- NOTE | 2024-12-18 18:04 | PTCARENOTE ---
pt discharge cancelled for this evening. per note and pt, medical supplies and medications to be delivered to pt's home this evening.
call placed to [facility] Health liaison-Danielle- #[phone]. message left regarding cancelled Discharge.
24 Hr [facility] Emergency line called-#[phone]. spoke to vice president media relations pharmacist-Herbert. above message relayed. Herbert to cancel home delivery. pt informed.
[2024-12-18] MEDS: CORTEF 5 MG PO (18:06)
[2024-12-18] MEDS: FLORINEF 0.05 MG PO (18:06)
[2024-12-18 18:30] LABS: Hematocrit 35.9 % (37.0-47.0); Hemoglobin 12.5 g/dL (12.0-16.0); Mean Corp Hgb Conc. 34.8 g/dL (33.0-37.0); Mean Corpuscular Hgb 29.6 pg (27.0-31.0); Mean Corpuscular Volume 84.9 fL (81.0-99.0); Mean Platelet Volume 8.3 fL (7.4-10.4); Platelet Count 291 10^3/uL (130-400); Red Blood Cell Count 4.23 10^6/uL (4.20-5.40); Red Cell Dist. Width 13.3 % (11.5-14.5); White Blood Cell Count 6.7 10^3/uL (4.8-10.8)
[2024-12-18 18:49] LABS: Blood Urea Nitrogen 7 mg/dl (7-17); Calcium 8.6 mg/dl (8.4-10.2); Carbon Dioxide 21 mmol/L (22-30); Chloride 106 mmol/L (98-107); Estimated Creatinine Clearance 86 ml/min; Glucose 120 mg/dl (70-99); Potassium 4.6 mmol/L (3.5-5.1); Sodium 134 mmol/L (135-145); eGFR > 60.00
[2024-12-18 18:56] LABS: Troponin I < 0.012 ng/ml
[2024-12-18] MEDS: MELATONIN 10 MG PO (22:08)
[2024-12-19 03:01] VITALS: BP 97/56
[2024-12-19 07:20] VITALS: BP 92/62
--- NOTE | 2024-12-19 07:30 | W.PN.HOSP.TC ---
Today's Communication/Plan
-
Discharge in the afternoon after her dose of IV Rocephin
Assessment / Plan
Assessment / Plan
A/P: Patient is a 59y F with PMH significant for Downey's disease and known L Perinephric Abscess / Infected Renal Cyst who presents to ED complaining of L flank pain.
L Perinephric Abscess / Infected Renal Cyst
- US done 12/16 shows L kidney lateral midpole lesion measuring 1.4 x 0.8 x 0.7cm.
- This is significantly smaller than on initial diagnosis and decreased from most recent (October) CT when it was 1.3 x 1.3 x 1.5.
- Patient is afebrile and non-toxic - though she does continue to complain of mild flank discomfort with pressure.
- Appreciate ID input, who has transition patient from oral Bactrim to Rocephin 2 g IV every 24 hours for 6 weeks, PICC inserted, case management has set up outpatient IV antibiotic infusions
- Appreciate urology input, status post aspiration of left renal abscess draining minimal hemorrhagic fluid on 12/18
- Medically stable for discharge on Rocephin 2 g IV every 24 hours for 6 weeks
- Follow-up with PCP in 1 week, and ID in the office in 5-6 weeks, she will need repeat CT of the abdomen and pelvis, CBC, BMP
Transient left breast pain
Left flank pain
- Likely from aspiration
- Left breast pain occurring after her procedure yesterday, now resolved
Hyperkalemia
- Lab error. Repeat K has been normal yesterday and today.
Downey's Disease
- Stable. Continue usual steroid regimen for now.
- Monitor for any decompensation, hypotension, etc.
Trigeminal Neuralgia
- Stable. Continue gabapentin. Increase to 300mg TID for improved pain control / flank pain.
DVT Prophylaxis: SCDs
Code Status: Full
Physical Exam
General: No acute distress
HEENT: Normocephalic, Atraumatic, EOMI, MMM
Respiratory: Clear to Auscultation bilaterally
Cardiac: Normal S1/S2, Regular Rate and Rhythm
GI: Soft, Nontender, Nondistended, Normal Bowel Sounds
: Mild left CVA tenderness
Extremities: No Clubbing, Cyanosis, or Edema
Neuro: Nonfocal/Grossly Intact
Psych: Calm, Cooperative
Derm: No Visible lesions
Anticipated Discharge: Today
Subjective/Interval History
-
Date of Service: December 19, 2024
Patient had severe pain after her procedure yesterday. She was also 'loopy' from the medications.
Today she reports her pain is improved. Her mentation is back to baseline. She does not recall what happened.
No nausea, no vomiting. No fever. She wishes to be discharged home after her IV antibiotics in the afternoon.
Objective Data
-
Vital Signs:
Vital Signs
Temp Pulse Resp BP Pulse Ox
98.3 F 64 17 92/62 98
12/19/24 07:20 12/19/24 07:20 12/19/24 07:20 12/19/24 07:20 12/19/24 07:20
I&O
12/18/24 12/19/24 12/20/24
06:59 06:59 06:59
Intake Total 1680 / 1680 630 / 630 660 / 660
Balance 1680 / 1680 630 / 630 660 / 660
[2024-12-19] MEDS: LEXAPRO 5 MG PO (08:16)
[2024-12-19] MEDS: HYDROCORTONE/CORTEF 40 MG PO (08:16)
[2024-12-19] MEDS: NEURONTIN 300 MG PO ×2 (08:17→17:05)
[2024-12-19 08:55] VITALS: BP 104/58; BP 93/62; BP 94/61; PULSE 104; PULSE 81
[2024-12-19 09:05] VITALS: BP 104/58; BP 93/62; BP 94/61; PULSE 104; PULSE 81
--- NOTE | 2024-12-19 10:03 | W.PN.ID1 ---
Date of Service
Date of Service: December 19, 2024
Today's Communication
- plan another 6 weeks of IV ceftriaxone, if residual lesion after this third course then I would stop and observe clinically
- follow up in ID clinic in about 5-[address], cbc and bmp shortly prior to that visit. Given that ESR and CRP have remained normal, further levels unlikely to impact management.
Assessment / Plan
Renal Abscess due to E coli
- 09/28 s/p aspiration of abscess yielding 40 ccs of puss - she has completed about 11 week of high bioavailability oral therapy (first ciprofloxacin, currently on bactrim) with notable improvement but residual collection
- abscess was initially 2.9 x 3.4 x 2.7 cm at follow up US 12/17 the collection is down to 1.4 x 0.8 x 0.7 cm; given overall decrease in size I suspect this was initially an abscess not a cyst though it is not possible to tell if this residual area is
still infected or not and the symptom of ongoing flank pain may or may not resolve with time. We had an extended discussion of risks/benefits/alternatives and Gonzalo preference is to complete a final course of IV therapy for a total of about 17
weeks of treatment (not unreasonable given the initial size and persistence of symptoms) beyond this I would stop antibiotics and observe clinically. We did discuss the possibility of stopping now at length however she prefers to continue at this
time.
- plan another 6 weeks of IV ceftriaxone, if residual lesion after this third course then I would stop and observe clinically
- follow up in ID clinic in about 5-[address], cbc and bmp shortly prior to that visit. Given that ESR and CRP have remained normal, further levels unlikely to impact management.
Chief Complaint
-: Other (renal abscess)
Subjective / Review of Systems
afebrile
bp typically runs a bit low for ms rowland - asymptomatic
aspiration was done x2 with minimal return of hemorrhagic fluid - note that at this late date the previous abscess may have coagulated
Vital Signs / Physical Exam
Vital Signs
Vital Signs
Temp Pulse Resp BP Pulse Ox
98.3 F 64 17 92/62 98
12/19/24 07:20 12/19/24 07:20 12/19/24 07:20 12/19/24 07:20 12/19/24 07:20
Physical Exam
Constitutional: No Acute Distress
Cardiovascular: Regular Rate
Pulmonary: Symmetric and Non Labored
Gastrointestinal: Non Tender
Skin: Dry; Negative Rash or Jaundice
Neurological: Awake
Objective Data
Lab Data
Lab Results
12/18/24 18:16
12/18/24 18:16
PT 13.5 Sec (11.4-14.6) 12/18/24 06:11
INR 1.00 12/18/24 06:11
Estimated Creat Clear 86 ml/min 12/18/24 18:16
Most recent labs reviewed.
Micro Results:
12/18/24 16:15 Wound Culture - Pending
Abdomen Gram Stain - Pending
--- NOTE | 2024-12-19 10:50 | W.PN.URO.CBU ---
Today's Communication / Plan
-
plan per hospitalist ok for d/c
Assessment / Plan
-
s/p attemptd aspiration left peinehric abscess min drained pt nowon 6 weeks iv abs
Diagnosis
-
Date of Service: December 19, 2024
-
Patient Diagnosis:complex left renal l cyst with possible residual abscess
Post Op Day:
Subjective
-
min left discomfort
Objective
-
Vital Signs
Temp Pulse Resp BP Pulse Ox
98.3 F 64 17 92/62 98
12/19/24 07:20 12/19/24 07:20 12/19/24 07:20 12/19/24 07:20 12/19/24 07:20
Intake and Output
12/18/24 12/19/24 12/20/24
06:59 06:59 06:59
Intake Total 1680 / 1680 630 / 630 660 / 660
Balance 1680 / 1680 630 / 630 660 / 660
Intake:
Oral fluids 720 / 720 480 / 480 660 / 660
IV fluids (Total) 960 / 960
IV piggybacks 150 / 150
Other:
Number of approximated MODERATE 1 2
amounts of urine
Number of unmeasured liquid
stools
Rectum 3
Laboratory Results
12/18/24 18:16
12/18/24 18:16
Review of Systems
-
: No Symptoms
Physical Exam
-
General - well developed, well nourished, no acute distress
Chest - clear bilaterally
Abdomen - soft, non-tender, positive bowel sounds, no CVAT, no incisional pain or distention
Genitalia - normal
Rectal - normal
Skin - warm & dry with no rash
Neuro - AOx3, no motor deficits
Extremities - no clubbing, no cyanosis, no edema
Incision - clean, dry
Dressing - clean, dry, intact
Care Review
Data Reviewed
Discussed with: Nursing
CT Scan: Image Pers Reviewed
--- NOTE | 2024-12-19 10:59 | CM ---
Reviewed the chart notes and spoke with the patient at the bedside and Danielle with [facility]. Patient feels that if she is discharged after last dose of scheduled IV abx today, she can discharge to home today and accept delivery of daily IV abx
tomorrow around 2pm. CM continues to be available to patient/family and is monitoring medical plan for needs at discharge.
Plan: Discharge to home with IV abx through [facility]. Patient's daughter to provide transportation.
[2024-12-19 11:03] VITALS: BP 110/74
[2024-12-19 15:10] VITALS: BP 97/60
[2024-12-19] MEDS: FLORINEF 0.05 MG PO (17:04)
[2024-12-19] MEDS: CORTEF 5 MG PO (17:04)
[2024-12-19] MEDS: ROCEPHIN 2000 MG IV (17:05)
[2024-12-19] MEDS: STERILE WATER FOR INJECTION 20 ML IV (17:05)
--- NOTE | 2024-12-19 17:50 | PTCARENOTE ---
When administering IV antibiotics into E picc, only the red lumen is patent and has blood return. The white lumen was unable to be flushed. VAT team made aware and came to assess patient. VAT team also unable to flush lumen. Dr. Mcclure made aware.
Do okay with patient leaving with one operational lumen. Patient made aware and told to let the home mothers helper know as soon as possible.
== END 2024-12-19 18:35 | disposition home health service (06) | DRG 690 ==
LOC: 2 SOUTH 10:37
PROVIDERS: Internal Medicine; Radiology Diagnostic Radiology; Radiology Vascular & Interventional Radiology; ADMITTING PHYSICIAN Hospitalist; ATTENDING PHYSICIAN Family Medicine; CONSULT PHYSICIAN Specialist; EMERGENCY PHYSICIAN Emergency Medicine; FAMILY PHYSICIAN Family Medicine; OTHER PHYSICIAN Student in an Organized Health Care Education/Training Program
PROC: 02HV33Z Insertion of Infusion Device into Superior Vena Cava, Percutaneous Approach (ICD-10-PCS; 2024-12-17)
PROC: 0TB13ZX Excision of Left Kidney, Percutaneous Approach, Diagnostic (ICD-10-PCS; 2024-12-18)
DX: N15.1 Renal and perinephric abscess (principal); E27.1 Primary adrenocortical insufficiency; E87.5 Hyperkalemia; G50.0 Trigeminal neuralgia; N28.1 Cyst of kidney, acquired
CPT/HCPCS: 10160; 36415; 71045; 76775; 77012; 80048; 84484; 85025; 85027; 85610; 85652; 86140; 87070; 87205; 93005; 99152; 99153

== ENCOUNTER → 2024-12-27 07:24 | Outpatient (REF) | payer BC, SELFPAY ==
[2024-12-27 09:36] LABS: ALT (SGPT) 19 U/L (0-35); AST (SGOT) 16 U/L (14-36); Albumin 3.9 g/dl (3.5-5.0); Alkaline Phosphatase 45 U/L (38-126); Blood Urea Nitrogen 12 mg/dl (7-17); Calcium 9.3 mg/dl (8.4-10.2); Carbon Dioxide 30 mmol/L (22-30); Chloride 109 mmol/L (98-107); Glucose 77 mg/dl (70-99); Potassium 4.6 mmol/L (3.5-5.1); Sodium 142 mmol/L (135-145); Total Bilirubin 0.4 mg/dl (0.2-1.3); eGFR > 60.00
== END ==
LOC: REG 07:24
PROVIDERS: ATTENDING PHYSICIAN Internal Medicine Endocrinology, Diabetes & Metabolism; FAMILY PHYSICIAN Family Medicine
DX: E27.1 Primary adrenocortical insufficiency (principal)
CPT/HCPCS: 36415; 80053

== ENCOUNTER → 2025-03-12 07:30 | Outpatient (REF) | payer BC, SELFPAY ==
[2025-03-12 08:00] LABS: Hematocrit 42.8 % (37.0-47.0); Hemoglobin 14.5 g/dL (12.0-16.0); Mean Corp Hgb Conc. 33.9 g/dL (33.0-37.0); Mean Corpuscular Volume 85.1 fL (81.0-99.0); Nucleated Red Blood Cells % 0 %; Platelet Count 340 10^3/uL (130-400); Red Cell Dist. Width 12.7 % (11.5-14.5)
[2025-03-12 11:14] LABS: C-Reactive Protein < 5.00 mg/L (0.0-10.00)
[2025-03-12 11:24] LABS: Blood Urea Nitrogen 16 mg/dl (7-17); Calcium 9.5 mg/dl (8.4-10.2); Carbon Dioxide 26 mmol/L (22-30); Chloride 102 mmol/L (98-107); Glucose 74 mg/dl (70-99); Potassium 4.6 mmol/L (3.5-5.1); Sodium 136 mmol/L (135-145); eGFR > 60.00
[2025-03-13 16:13] LABS: Rheumatoid Agglutinin Less Than 10 IU (<10 IU)
[2025-03-13 16:43] LABS: Lyme Antibody Screen, EIA Negative (Negative)
[2025-03-14 11:51] LABS: ANA, IgG Reflex to HEp-2 None Detected (None Detected)
[2025-03-14 12:18] LABS: CCP Antibody IgG/IgA 3 Units (0-19)
== END ==
LOC: REG 07:30
PROVIDERS: ATTENDING PHYSICIAN Family Medicine
DX: N15.1 Renal and perinephric abscess (principal); M25.50 Pain in unspecified joint; M25.40 Effusion, unspecified joint; M79.641 Pain in right hand; M79.642 Pain in left hand
CPT/HCPCS: 36415; 80048; 85025; 85652; 86038; 86140; 86200; 86430; 86618

== ENCOUNTER → 2025-03-13 07:08 | Outpatient (REF) | payer BC, SELFPAY | LOC: RAD 07:08 | PROVIDERS: ATTENDING PHYSICIAN Specialist; FAMILY PHYSICIAN Family Medicine | DX: N28.1 Cyst of kidney, acquired (principal) | CPT/HCPCS: 74178; Q9967 ==

== ENCOUNTER → 2025-05-06 12:10 | Outpatient (REF) | payer BC, SELFPAY | LOC: CLAB 12:10 | PROVIDERS: ATTENDING PHYSICIAN Nurse Practitioner Adult Health | DX: J02.9 Acute pharyngitis, unspecified (principal) | CPT/HCPCS: 87070 ==

== ENCOUNTER 2025-06-25 18:24 | Emergency (ER) | payer BC, SELFPAY ==
[2025-06-25 18:27] VITALS: BP 117/85
[2025-06-25 18:45] LABS: Hematocrit 42.6 % (37.0-47.0); Hemoglobin 14.8 g/dL (12.0-16.0); Mean Corp Hgb Conc. 34.7 g/dL (33.0-37.0); Mean Corpuscular Volume 85.4 fL (81.0-99.0); Nucleated Red Blood Cells % 0 %; Platelet Count 383 10^3/uL (130-400); Red Cell Dist. Width 12.8 % (11.5-14.5)
[2025-06-25 19:02] LABS: ALT (SGPT) 26 U/L (0-35); AST (SGOT) 28 U/L (14-36); Albumin 4.8 g/dl (3.5-5.0); Alkaline Phosphatase 80 U/L (38-126); Blood Urea Nitrogen 17 mg/dl (7-17); Calcium 9.6 mg/dl (8.4-10.2); Carbon Dioxide 25 mmol/L (22-30); Chloride 101 mmol/L (98-107); Glucose 93 mg/dl (70-99); Potassium 4.5 mmol/L (3.5-5.1); Sodium 132 mmol/L (135-145); Total Protein 7.3 g/dl (6.3-8.2); eGFR > 60.00
[2025-06-25 20:43] VITALS: BP 121/82
[2025-06-25 21:11] LABS: Urine Character Clear (Clear)
--- NOTE | 2025-06-25 21:20 | ED.GENMED ---
History of Present Illness
General
Chief Complaint: Flank Pain
Time Seen by Provider: 06/25/25 20:58
History of Present Illness
History of Present Illness:
59-year-old female with history of Jassi's disease presents to the emergency department for evaluation of mild left flank discomfort that began today. She has a history earlier this year with a left perinephric abscess that required prolonged IV
antibiotics that she is concerned for recurrence. Denies any fevers or chills. States she had minimal symptoms that led to his prior diagnosis. She did a home urinalysis which showed positive white blood cells however this was not supported on an
urgent care urinalysis. Denies any nausea vomiting or diarrhea.
Past History
Past History
ED Past Medical History: Other ([place]'s disease, trigeminal neuralgia)
ED Past Surgical History: Other
Social History
Tobacco: Non-smoker
Alcohol: None
Drug: None
Personal: Other
Living: with family
Employment: Employed
Family History
Family History: Cancer (Aunt breast cancer in her 50s, sister with breast cancer in her 40s, first cousin with ovarian cancer in her 40s)
Review of Systems
Review of Systems
Allergies reviewed?: Yes
All Other Systems: ROS reviewed and negative except as documented in HPI and ROS
Phy Exam
Physical Exam
Physical Exam:
GEN: Well appearing, NAD, WDWN
HEENT: Oral mucosa moist, no scleral icterus
Cardiac: Regular rate
Lung: No respiratory distress, no tachypnea
Abdomen: Soft, grossly nontender, no CVA tenderness
MSK: No gross deformity or injuries
Skin: Good color, no pallor or jaundice, no rashes
Neuro: AO x3, moves all extremities freely
Psych: Calm, cooperative
Course
Orders/Labs/Results
Orders:
Orders
06/25/25 18:40
Complete Blood Count/With Diff Urgent
Comprehensive Metabolic Panel Urgent
06/25/25 20:52
Urinalysis Reflex To Culture Urgent
Urine Microscopic Reflex Cult Urgent
Urine Culture Urgent
ANA Source: U
Specimen Description:
Comment: ADD ON
06/25/25 21:20
US Renal With Bladder Urgent
Comment:
Reason For Exam: L flank pain
06/25/25 22:42
Add On - Microbiology Urgent
Tests Added?: urine culture
06/25/25 22:47
Hydrocortisone [Cortef] 5 mg PO NOW STA
06/25/25 22:48
Fludrocortisone Acetate [Florinef] 0.05 mg PO NOW STA
Abnormal Lab Results
06/25/25 06/25/25
18:40 20:52
Absolute Monos (auto) 0.7 H 10^3/uL
(0.1-0.6)
Sodium 132 L mmol/L
(135-145)
Ur Occult Blood Reflex 4+ A
(Negative)
Urine RBC 3-6 A /HPF
(0-2)
Urine Bacteria (Reflex) Few A
(Negative)
06/25/25 18:40
06/25/25 18:40
Vital Signs
Initial and Last Documented VS:
Initial Vital Signs
Temp Pulse Resp BP Pulse Ox
98.4 F 84 16 117/85 98
06/25/25 18:27 06/25/25 18:27 06/25/25 18:27 06/25/25 18:27 06/25/25 18:27
Last Documented Vital Signs
Temp Pulse Resp BP Pulse Ox
98.4 F 62 16 121/82 99
06/25/25 18:27 06/25/25 20:43 06/25/25 18:27 06/25/25 20:43 06/25/25 21:20
MDM/Problems Addressed
MDM/Problems Addressed:
Labs all reassuring, renal ultrasound without evidence for fluid collection or hydronephrosis. May be musculoskeletal etiology
*Pulse Oximetry
SaO2: 99
Oxygen Mode of Delivery: Room air
Patient hypoxic: no
*Critical Care Note
Total Time (30-74mins, 75-104mins- exclusive of procedures): Not Applicable
ED Attending Note
-
Portions of this chart may have been created with voice recognition software.� Occasional wrong word or��sound alike� substitutions may have occurred due to the inherent limitations of voice recognition software.
Discharge Plan
Departure
Patient Disposition: Home (Routine Discharge)
Date of Disposition: 06/25/25
Time of Disposition: 22:42
Patient with high blood pressure during this ER visit?: No
Discharge Problem:
Acute left flank pain
Instructions: Flank Pain (DC)
Prescriptions:
No Action
carboxymethylcellulose sodium [Refresh Tears] 0.5 % Drops
1 drp BOTH EYES QIDPRN PRN (Reason: dry eyes)
gabapentin 100 mg Capsule
300 mg PO HS
escitalopram oxalate 5 mg Tablet
5 mg PO DAILY
melatonin 10 mg Tablet
10 mg PO HSPRN PRN (Reason: sleep)
gabapentin 100 mg Tablet
200 mg PO BID@0800,1400
fludrocortisone 0.1 mg Tablet
0.05 mg PO QPM
hydrocortisone 10 mg Tablet
20 mg PO DAILY
hydrocortisone 10 mg Tablet
5 mg PO QPM
acetaminophen 325 mg Tablet
650 mg PO Q4HPRN PRN (Reason: Mild Pain / Temp > 101) Qty: 0 0RF
ceftriaxone 2 gram Recon Soln
2,000 mg IV Q24H 42 Days Qty: 42 0RF
Referrals:
Gege Patton DO [Family Provider, Family Practice]
Interventions
Interventions:
*Risk Screen - Suicide Last Done: 06/25/25 18:30
*General Assessment Last Done: 06/25/25 20:44
*Neglect/Abuse Screening Last Done: 06/25/25 18:30
*ED COVID-19 Vaccine History Last Done: 06/25/25 22:46
*ED Influenza Vaccine History Last Done: 06/25/25 22:46
[facility] Risk Assessment Tool Last Done: 06/25/25 22:46
*Nursing Disposition Last Done: 06/25/25 22:46
TO-[id number]-[id number] Assessment Last Done: 06/25/25 21:26
ED-Female Genitourinary Assessment Last Done: 06/25/25 21:26
Discharge Date and Time
Discharge Date/Time: 06/25/25 22:48
Print Language: CUBAN
[2025-06-25 21:52] LABS: Urine Squamous Cell >30 /LPF (Few); Urine White Cell 0-2 /HPF (0-5)
== END 2025-06-25 22:48 | disposition home or self-care (01) ==
LOC: EMR 18:24
PROVIDERS: Emergency Medicine; EMERGENCY PHYSICIAN Emergency Medicine; FAMILY PHYSICIAN Family Medicine
DX: R10.A2 Flank pain, left side (principal); E27.1 Primary adrenocortical insufficiency; G50.0 Trigeminal neuralgia
CPT/HCPCS: 99284; 76770; 80053; 81003; 81015; 85025; 87086

== ENCOUNTER 2025-07-02 13:48 | Inpatient (IN) | payer BC, SELFPAY ==
[2025-07-02] VITALS (24 sets, daily range): BP systolic 82–112; BP diastolic 35–75
[2025-07-02 02:34] LABS: ALT (SGPT) 40 U/L (0-35); AST (SGOT) 41 U/L (14-36); Albumin 4.7 g/dl (3.5-5.0); Alkaline Phosphatase 81 U/L (38-126); Blood Urea Nitrogen 11 mg/dl (7-17); Calcium 9.3 mg/dl (8.4-10.2); Carbon Dioxide 25 mmol/L (22-30); Chloride 100 mmol/L (98-107); Glucose 109 mg/dl (70-99); Lipase 56 U/L (23-300); Potassium 4.2 mmol/L (3.5-5.1); Sodium 134 mmol/L (135-145); Total Protein 7.1 g/dl (6.3-8.2); eGFR > 60.00
[2025-07-02 02:38] LABS: COVID-19 Antigen Negative (Negative)
[2025-07-02 02:39] LABS: Hematocrit 35.1 % (37.0-47.0); Hemoglobin 12.3 g/dL (12.0-16.0); Mean Corp Hgb Conc. 35.0 g/dL (33.0-37.0); Mean Corpuscular Volume 84.6 fL (81.0-99.0); Nucleated Red Blood Cells % 0 %; Platelet Count 287 10^3/uL (130-400); Red Cell Dist. Width 12.8 % (11.5-14.5)
--- NOTE | 2025-07-02 06:27 | ED.GENMED ---
History of Present Illness
<Joshua Ulloa PA-C - Last Filed: 07/02/25 10:16>
General
Chief Complaint: Fever
Source: patient
Exam Limitations: none
Time Seen by Provider: 07/02/25 06:07
History of Present Illness
History of Present Illness:
59-year-old female with history of Jassi's disease and trigeminal neuralgia presents with 4 days worth of feeling ill. She notes a fever. She feels like she is in [place]'s crisis. She notes sore throat and headache. She notes vomiting and
nausea. No chest pain. No significant cough. She denies any urinary symptoms. She does have a history of a renal abscess that caused sepsis in the past. She was here 4 days ago had this evaluated with an ultrasound that was negative. She
denies a rash. She notes mild diffuse abdominal pain. No other complaints at this time
Past History
<Joshua Ulloa PA-C - Last Filed: 07/02/25 10:16>
Past History
ED Past Medical History: Other (Jassi's disease, trigeminal neuralgia)
ED Past Surgical History: Other
Social History
Tobacco: Non-smoker
Alcohol: None
Drug: None
Personal: Other
Living: with family
Employment: Employed
Family History
Family History: Cancer (Aunt breast cancer in her 50s, sister with breast cancer in her 40s, first cousin with ovarian cancer in her 40s)
Phy Exam
<Joshua Ulloa PA-C - Last Filed: 07/02/25 10:16>
Physical Exam
Physical Exam:
General: ill-appearing female no acute respiratory distress
HEENT: Mucosa dry neck is supple no adenopathy no trismus or drooling posterior pharynx erythematous without exudate
Heart: Tachycardic but regular
Lungs: Clear no wheeze
Abdomen: Soft mild diffuse tenderness no guarding nondistended
Extremities: No cyanosis or edema
Skin warm to the touch no rash
Neurologic exam: Alert and oriented no meningeal signs no nuchal rigidity
Sepsis
<Joshua Ulloa PA-C - Last Filed: 07/02/25 10:16>
Sepsis Screening
Sepsis Assessment: Sepsis
Sepsis Screen
Sepsis Screen: Sepsis
Date: 07/02/25
Time: 10:16
Course
<Joshua Ulloa PA-C - Last Filed: 07/02/25 10:16>
Orders/Labs/Results
Orders:
Orders
07/02/25 01:44
IV Insert/Care/Rem.- Treatment PRN
07/02/25 02:01
COVID-19 Antigen Urgent
Source: Nasal Swab
Complete Blood Count/With Diff Urgent
Comprehensive Metabolic Panel Urgent
Lipase Urgent
Urinalysis Reflex To Culture Urgent
Date Specimen was Collected: 07/02/25
Time Specimen was Collected: 01:44
Urine Microscopic Reflex Cult Urgent
Influenza A+B Rapid Molecular Urgent
ANA Source: Nasal Swab
Specimen Description:
07/02/25 02:21
Lactate Level [Lactic Acid] Urgent
Comment: .
Blood Culture Urgent
ANA Source: Blood/Venous
Specimen Description:
Date Specimen was Collected: 07/02/25
Time Specimen was Collected: 02:05
Blood Culture Urgent
ANA Source: Blood/Venous
Specimen Description:
Date Specimen was Collected: 07/02/25
Time Specimen was Collected: 02:16
07/02/25 06:22
0.9% Sodium Chloride 1000 ml [Nss] 1,000 ml IV BOLUS
Acetaminophen [Tylenol] 1,000 mg PO NOW STA
Ondansetron Injectable [Zofran] 4 mg IV NOW STA
07/02/25 06:23
CT Abd/pelvis W Iv Cont Urgent
Comment:
Reason For Exam: fever, vomiting
CR Chest Portable - 1 View Urgent
Comment:
Reason For Exam: fever
Reason Study Needs to be Portable: Patient Unstable
07/02/25 06:24
Hydrocortisone Sod Succinate [Solu-Cortef] 200 mg IV NOW STA
07/02/25 06:30
Cortisol, Random Urgent
Monotest Urgent
Rapid Strep Group A Urgent
ANA Source: Throat/Pharynx
Specimen Description:
Date Specimen was Collected: 07/02/25
Time Specimen was Collected: 06:29
07/02/25 06:44
Acetaminophen 1000MG/100Ml [Ofirmev] 1,000 mg in 100 ml IV ONCE
Acetaminophen IV Indication:: No AR & No Enteral Access
07/02/25 07:47
0.9% Sodium Chloride 1000 ml [Nss] 1,000 ml IV BOLUS
07/02/25 08:27
Lactic Acid Urgent
Abnormal Lab Results
07/02/25 07/02/25
02:01 02:21
WBC 15.5 H 10^3/uL
(4.8-10.8)
RBC 4.15 L 10^6/uL
(4.20-5.40)
Hct 35.1 L %
(37.0-47.0)
Abs Immat Gran (auto) 0.1 H 10^3/uL
(0-0.05)
Absolute Neuts (auto) 12.2 H 10^3/uL
(1.4-6.5)
Absolute Monos (auto) 1.3 H 10^3/uL
(0.1-0.6)
Neutrophils % 78.2 H %
(42.2-75.2)
Lymphocytes % 11.5 L %
(20.5-51.1)
Sodium 134 L mmol/L
(135-145)
Glucose 109 H mg/dl
(70-99)
Lactic Acid 2.4 H mmol/L
(0.7-2.0)
AST 41 H U/L
(14-36)
ALT 40 H U/L
(0-35)
Ur Occult Blood Reflex 3+ A
(Negative)
Urine RBC 7-10 A /HPF
(0-2)
Urine Albumin (Reflex) 1+ A
(Neg - Trace)
07/02/25 02:01
07/02/25 02:01
Vital Signs
Initial and Last Documented VS:
Initial Vital Signs
Temp Pulse Resp BP Pulse Ox
102.5 F H 117 20 112/75 98
07/02/25 01:35 07/02/25 01:35 07/02/25 01:35 07/02/25 01:35 07/02/25 01:35
Last Documented Vital Signs
Temp Pulse Resp BP Pulse Ox
99.8 F 97 17 100/70 98
07/02/25 07:38 07/02/25 10:01 07/02/25 10:01 07/02/25 10:01 07/02/25 06:32
<Teja Beaver, DO - Last Filed: 07/02/25 08:21>
Orders/Labs/Results
Orders:
Orders
07/02/25 01:44
IV Insert/Care/Rem.- Treatment PRN
07/02/25 02:01
COVID-19 Antigen Urgent
Source: Nasal Swab
Complete Blood Count/With Diff Urgent
Comprehensive Metabolic Panel Urgent
Lipase Urgent
Urinalysis Reflex To Culture Urgent
Date Specimen was Collected: 07/02/25
Time Specimen was Collected: 01:44
Urine Microscopic Reflex Cult Urgent
Influenza A+B Rapid Molecular Urgent
ANA Source: Nasal Swab
Specimen Description:
07/02/25 02:21
Lactate Level [Lactic Acid] Urgent
Comment: .
Blood Culture Urgent
ANA Source: Blood/Venous
Specimen Description:
Date Specimen was Collected: 07/02/25
Time Specimen was Collected: 02:05
Blood Culture Urgent
ANA Source: Blood/Venous
Specimen Description:
Date Specimen was Collected: 07/02/25
Time Specimen was Collected: 02:16
07/02/25 06:22
0.9% Sodium Chloride 1000 ml [Nss] 1,000 ml IV BOLUS
Acetaminophen [Tylenol] 1,000 mg PO NOW STA
Ondansetron Injectable [Zofran] 4 mg IV NOW STA
07/02/25 06:23
CT Abd/pelvis W Iv Cont Urgent
Comment:
Reason For Exam: fever, vomiting
CR Chest Portable - 1 View Urgent
Comment:
Reason For Exam: fever
Reason Study Needs to be Portable: Patient Unstable
07/02/25 06:24
Hydrocortisone Sod Succinate [Solu-Cortef] 200 mg IV NOW STA
07/02/25 06:30
Cortisol, Random Urgent
Monotest Urgent
Rapid Strep Group A Urgent
ANA Source: Throat/Pharynx
Specimen Description:
Date Specimen was Collected: 07/02/25
Time Specimen was Collected: 06:29
07/02/25 06:44
Acetaminophen 1000MG/100Ml [Ofirmev] 1,000 mg in 100 ml IV ONCE
Acetaminophen IV Indication:: No AR & No Enteral Access
07/02/25 07:47
0.9% Sodium Chloride 1000 ml [Nss] 1,000 ml IV BOLUS
07/02/25 08:27
Lactic Acid Urgent
Abnormal Lab Results
07/02/25 07/02/25
02:01 02:21
WBC 15.5 H 10^3/uL
(4.8-10.8)
RBC 4.15 L 10^6/uL
(4.20-5.40)
Hct 35.1 L %
(37.0-47.0)
Abs Immat Gran (auto) 0.1 H 10^3/uL
(0-0.05)
Absolute Neuts (auto) 12.2 H 10^3/uL
(1.4-6.5)
Absolute Monos (auto) 1.3 H 10^3/uL
(0.1-0.6)
Neutrophils % 78.2 H %
(42.2-75.2)
Lymphocytes % 11.5 L %
(20.5-51.1)
Sodium 134 L mmol/L
(135-145)
Glucose 109 H mg/dl
(70-99)
Lactic Acid 2.4 H mmol/L
(0.7-2.0)
AST 41 H U/L
(14-36)
ALT 40 H U/L
(0-35)
Ur Occult Blood Reflex 3+ A
(Negative)
Urine RBC 7-10 A /HPF
(0-2)
Urine Albumin (Reflex) 1+ A
(Neg - Trace)
07/02/25 02:01
07/02/25 02:01
Vital Signs
Initial and Last Documented VS:
Initial Vital Signs
Temp Pulse Resp BP Pulse Ox
102.5 F H 117 20 112/75 98
07/02/25 01:35 07/02/25 01:35 07/02/25 01:35 07/02/25 01:35 07/02/25 01:35
Last Documented Vital Signs
Temp Pulse Resp BP Pulse Ox
99.8 F 97 17 100/70 98
07/02/25 07:38 07/02/25 10:01 07/02/25 10:01 07/02/25 10:01 07/02/25 06:32
<Joshua Ulloa PA-C - Last Filed: 07/02/25 10:16>
MDM/Problems Addressed
Differential Diagnosis Includes:
Patient with fever vomiting headache sore throat. Temperature 102.5, she is tachycardic. Labs through triage demonstrate leukocytosis with a left shift. Suspect sepsis. Unclear etiology. COVID and flu are negative. Will expand workup to chest
x-ray CT of abdomen strep and mono. Will hydrate give stress dose steroids Tylenol and Zofran.
<Joshua Ulloa PA-C - Last Filed: 07/02/25 10:16>
*Pulse Oximetry
SaO2: 98
Oxygen Mode of Delivery: Room air
Patient hypoxic: no
*Critical Care Note
Total Time (30-74mins, 75-104mins- exclusive of procedures): Not Applicable
<Joshua Ulloa PA-C - Last Filed: 07/02/25 10:16>
Update Note
Update Note:
Patient reevaluated multiple times. Vital signs have improved lactic acid has improved after fluid bolus. Chest x-ray clear CT of abdomen negative urinalysis with hematuria but no infection. Strep mono COVID and flu all negative. Blood cultures
are pending. Discussed with emergency room attending saw the patient. Given initially unstable vital signs with tachycardia fever and borderline low blood pressures, will keep in the hospital for further evaluation pending blood cultures.
ED Attending Note
<Joshua Ulloa PA-C - Last Filed: 07/02/25 10:16>
-
Portions of this chart may have been created with voice recognition software.� Occasional wrong word or��sound alike� substitutions may have occurred due to the inherent limitations of voice recognition software.
<Teja Beaver DO - Last Filed: 07/02/25 08:21>
ED Attending Note
Patient seen and examined by attending physician: Yes
I performed the substantive portion of visit, reviewed & personally made and approve the management plan that is documented in note by myself or LINDA.: Yes
ED Attending Note:
I evaluated the patient at bedside. Leukocytosis noted. She arrived febrile with temp of 39.2. I personally viewed CT imaging but do not see any clear sign of perinephric abscess or any other intra-abdominal abscess. Her lactic is elevated 2.4.
Random cortisol very low and she was given stress dose steroids. Urinalysis obtained. Monoscreen, flu, and COVID are all negative
Discharge Plan
Departure
Patient Disposition: Admit
Date of Disposition: 07/02/25
Time of Disposition: 10:11
Presentation/result/management discussed w/ accepting MD/DO: Hospitalist
Patient with high blood pressure during this ER visit?: No
Discharge Problem:
Sepsis
Prescriptions:
No Action
carboxymethylcellulose sodium [Refresh Tears] 0.5 % Drops
1 drp BOTH EYES QIDPRN PRN (Reason: dry eyes)
gabapentin 100 mg Capsule
300 mg PO HS
escitalopram oxalate 5 mg Tablet
5 mg PO DAILY
melatonin 10 mg Tablet
10 mg PO HSPRN PRN (Reason: sleep)
gabapentin 100 mg Tablet
200 mg PO BID@0800,1400
fludrocortisone 0.1 mg Tablet
0.05 mg PO QPM
hydrocortisone 10 mg Tablet
20 mg PO DAILY
hydrocortisone 10 mg Tablet
5 mg PO QPM
acetaminophen 325 mg Tablet
650 mg PO Q4HPRN PRN (Reason: Mild Pain / Temp > 101) Qty: 0 0RF
ceftriaxone 2 gram Recon Soln
2,000 mg IV Q24H 42 Days Qty: 42 0RF
Referrals:
Gege Patton DO [Family Provider, Family Practice]
Interventions
Interventions:
*General Assessment Last Done: 07/02/25 01:35
*Neglect/Abuse Screening Last Done: 07/02/25 01:35
*ED COVID-19 Vaccine History Last Done: 07/02/25 01:35
*ED Influenza Vaccine History Last Done: 07/02/25 01:35
[facility] Fall Risk Assessment Tool Last Done: 07/02/25 02:44
*Risk Screen - Suicide (C-SSRS) Last Done: 07/02/25 01:35
ED- Neurological Assessment Last Done: 07/02/25 02:44
ED-Skin Assessment Last Done: 07/02/25 02:44
Discharge Date and Time
Print Language: PUERTO RICAN
[2025-07-02] MEDS: ZOFRAN 4 MG IV (06:36)
[2025-07-02] MEDS: NSS 1000 IV ×4 (06:36→23:41)
[2025-07-02] MEDS: SOLU-CORTEF 200 MG IV (06:50)
[2025-07-02] MEDS: OFIRMEV 100 IV (06:52)
[2025-07-02 07:37] LABS: Cortisol, Random 0.7 ug/dl
[2025-07-02 09:38] LABS: Urine Character Clear (Clear)
--- NOTE | 2025-07-02 11:09 | HPS.HSE ---
Addendum entered and electronically signed by Matheus Owen MD 07/02/25 14:56:
I personally performed a history and physical exam of the patient and discussed management with the resident. I reviewed the resident's note and agree with the documented findings and plan of care HPI/CC.
59-year-old female past medical history as mentioned below who is presenting from home with complaints of fever and weakness. States her symptoms started proximally 3 to 4 days ago. States no fevers at home. States of diffuse bodyaches.
Associated nausea and vomiting and sore throat. Denies eating anything out of the ordinary. Denies any recent travel or antibiotic use. Denies any urinary urgency or increased frequency. Denies any diarrhea. States feeling mild lightheaded.
States usually her blood pressures above 95 and current blood pressure during my evaluation was 84/57 which is quite low.
General: Conversant and Poor Appetite
HEENT: NormoCephalic
Respiratory: Clear
Cardiac: S1/S2 and Regular Rhythm
GI: Soft, Non Tender and Non Distended
Musculoskeletal: No Clubbing and No Edema
Skin: Warm and Dry
Neuro: Awake, Alert and Oriented
Psych: Calm
Assessment/plan
Fevers
Lactic acidosis
Houck's disease
Mood disorder
Plan
Initial infectious workup seems to be negative
COVID, influenza negative
Rapid strep negative
CT abdomen pelvis was performed on admission was negative for any acute abscess or fluid collection
Chest x-ray was negative for acute infiltrates
Patient without any cough. Patient without any diarrhea.
UA benign
Follow-up on the blood culture results
Hold off on antibiotics for now
? Due to adrenal crisis causing fevers
Monitor for now.
Stress dose steroids
Midodrine for blood pressure. May require pressors. If persistent low blood pressure start Levophed
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
DVT prophylaxis
Monitor in IMU
I spent a total of 80 minutes with the patient or on the floor. More than 50% of this time involved counseling and coordination of care.
Original Note:
Family Physician
-
Family Physician: Gege Patton
Chief Complaint
-
fever, weakness
History of Present Illness
This is a 59-year-old female patient presenting to the hospital with concerns of fever and weakness. She states that for the past 3 days she has been experiencing a fever up to 101 at home, body aches, headaches, nausea, vomiting and sore throat.
She denies any constipation or diarrhea. She denies any recent travel travel history or recent antibiotic use. Denies any urinary difficulties. She was recently seen in the ER on 06/25 for acute left flank pain.
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
Medical History
Past Medical History
Past Medical History: Reports Other
Additional Past Medical History:
Houck disease
Postmenopausal atrophic vaginitis
Renal cyst
Insomnia
Hyperlipidemia
Chronic interstitial cystitis
Past Surgical History: Reports None
Social History
Tobacco: Non-smoker
Alcohol: None
Drug: None
Family History
Family History: Not pertinent
Allergies / Home Medications
Allergies reflects when Allergies were last updated in [employer].
Home Medications with original date entered in [employer]
Allergy/Medication List:
Allergies
Allergy/AdvReac Type Severity Reaction Status Date / Time
Penicillins Allergy Intermediate stiff Verified 07/02/25 01:34
neck/LIAO
Home Medications
escitalopram oxalate 5 mg tablet 5 mg PO DAILY Mental Health/Anxiety 09/27/24
fludrocortisone 0.1 mg tablet 0.05 mg PO QPM INFLAMMATION 12/17/24
hydrocortisone 10 mg tablet 5 mg PO QPM INFLAMMATION 12/17/24
hydrocortisone 10 mg tablet 15 mg PO DAILY INFLAMMATION 12/17/24
melatonin 10 mg tablet 10 mg PO HS 12/17/24
estradiol 0.01% (0.1 mg/gram) vaginal cream 1 g vaginal MOFR 07/02/25
magnesium oxide 200 mg PO HS 07/02/25
Review of Systems
-
A 12 point ROS was completed and negative except as noted: Yes
Abdomen/GI: Reports Nausea and Vomiting
Physical Exam
Vital Signs
Vital Signs
Temp Pulse Resp BP Pulse Ox
99.2 F 89 22 107/66 98
07/02/25 10:05 07/02/25 10:30 07/02/25 10:30 07/02/25 10:15 07/02/25 06:32
Physical Exam
General: Conversant and Poor Appetite
HEENT: NormoCephalic
Respiratory: Clear
Cardiac: S1/S2 and Regular Rhythm
GI: Soft, Non Tender and Non Distended
Musculoskeletal: No Clubbing and No Edema
Skin: Warm and Dry
Neuro: Awake, Alert and Oriented
Psych: Calm
Laboratory Results
-
07/02/25 02:01
07/02/25 02:01
Laboratory Results
Lactic Acid 1.4 mmol/L (0.7-2.0) 07/02/25 08:27
Total Bilirubin 0.6 mg/dl (0.2-1.3) 07/02/25 02:01
AST 41 U/L (14-36) H 07/02/25 02:01
ALT 40 U/L (0-35) H 07/02/25 02:01
Alkaline Phosphatase 81 U/L (38-126) 07/02/25 02:01
Lipase 56 U/L (23-300) 07/02/25 02:01
Impression/Plan
-
IMPRESSION:This is a 59-year-old female patient presenting to the hospital with concerns of fever and weakness
PLAN:
#Fever unknown source of infection
� COVID/flu/mono/strep negative
- CXR, CT abdomen unremarkable except for moderate stool burden
- Elevated white count 15.5
� Lactic acid elevated, return to normal after fluid bolus
-Mildly elevated LFTs, normal ABD CT
�UA unremarkable
-Symptomatic treatment such as Tylenol and IV Zofran
- will hold off on abx for now
� Blood cultures pending
#Hypotension
� Will start midodrine 3 times daily, hold for SBP greater than 95
� Will start IVF NS
#Houck's disease
� Hold home steroid doses
� Start IV hydrocortisone 50mg every 8hr
# Depression
� Continue escitalopram
Code: Full
DVT: SCDs
[2025-07-02] MEDS: NSS 500 IV (11:46)
[2025-07-02] MEDS: SOLU-CORTEF 50 MG IV ×2 (15:22→23:42)
[2025-07-02] MEDS: TYLENOL 650 MG PO ×2 (15:27→23:49)
--- NOTE | 2025-07-02 16:44 | PTCARENOTE ---
Pt c/o LIAO and chills - is afebrile. Tylenol given. Pt encouraged to use bedpan or BSC d/t hypotension but refused and demanded to go into bathroom. Escorted to bathroom by staff. Pt denies dizziness/lightheaded and tolerated walking to bathroom
well.
[2025-07-02] MEDS: LOVENOX 40 MG SC (17:50)
--- NOTE | 2025-07-02 18:32 | PTCARENOTE ---
Pt arrived to IMU. NSR on tele. BP 93/53. no complaints of nausea or dizziness, oriented to IMU.
--- NOTE | 2025-07-02 20:16 | PTCARENOTE ---
Pts dinner tray not delivered to floor. pt provided with snack, juice from pt refreshment fridge while nurse locates pts dinner try. Pts dinner tray with pt name and labeled on it located in ED. this RN picked up dinner tray from ED. pt able to
eat small amount of dinner but Pt mentioned it was not what they ordered.
[2025-07-02] MEDS: MAGNESIUM OXIDE 200 MG PO (21:50)
[2025-07-02] MEDS: MELATONIN 10 MG PO (21:50)
[2025-07-03] VITALS (19 sets, daily range): BP systolic 80–125; BP diastolic 46–84; PULSE 86–87
[2025-07-03 06:29] LABS: Hematocrit 33.6 % (37.0-47.0); Hemoglobin 11.5 g/dL (12.0-16.0); Mean Corp Hgb Conc. 34.2 g/dL (33.0-37.0); Mean Corpuscular Volume 86.8 fL (81.0-99.0); Nucleated Red Blood Cells % 0 %; Platelet Count 227 10^3/uL (130-400); Red Cell Dist. Width 13.3 % (11.5-14.5)
[2025-07-03 07:11] LABS: ALT (SGPT) 25 U/L (0-35); AST (SGOT) 23 U/L (14-36); Albumin 3.1 g/dl (3.5-5.0); Alkaline Phosphatase 45 U/L (38-126); Blood Urea Nitrogen 7 mg/dl (7-17); Calcium 8.1 mg/dl (8.4-10.2); Carbon Dioxide 21 mmol/L (22-30); Chloride 111 mmol/L (98-107); Estimated Creatinine Clearance 91 ml/min; Glucose 111 mg/dl (70-99); Potassium 4.0 mmol/L (3.5-5.1); Sodium 137 mmol/L (135-145); Total Protein 5.3 g/dl (6.3-8.2); eGFR > 60.00
[2025-07-03] MEDS: SOLU-CORTEF 50 MG IV ×2 (09:00→16:39)
[2025-07-03] MEDS: LEXAPRO 5 MG PO (09:02)
[2025-07-03] MEDS: NSS 1000 IV (09:04)
--- NOTE | 2025-07-03 10:15 | PTCARENOTE ---
Rec'd pt this AM, reports feeling much better. OOB with no assistance required to bathroom. neg orthosatic VS. educataed on medications. remains with marginal BP with asymptomatic.
--- NOTE | 2025-07-03 12:22 | W.PN.HOSP.TC ---
Today's Communication/Plan
-
DC midodrine
DC fluids
Monitor blood pressure
Follow-up on the blood cultures
Remains afebrile
Encourage p.o. intake
Blood pressure remains stable can transfer out of IMU
Assessment / Plan
Assessment / Plan
General: Conversant and Poor Appetite
HEENT: NormoCephalic
Respiratory: Clear
Cardiac: S1/S2 and Regular Rhythm
GI: Soft, Non Tender and Non Distended
Musculoskeletal: No Clubbing and No Edema
Skin: Warm and Dry
Neuro: Awake, Alert and Oriented
Psych: Calm
#Fever
#Leukocytosis likely reactive
#Lactic acidosis
� COVID/flu/mono/strep negative
- CXR negative for acute infiltrate.
- CT abdomen unremarkable except for moderate stool burden
- Elevated white count 15.5 on admission which is down trended
� Lactic acidosis resolved
� UA unremarkable
- Symptomatic treatment such as Tylenol and IV Zofran
� Preliminary blood cultures are negative. Remains afebrile. Lozenges for sore throat
#Hypotension
� Improvement in blood pressure. DC midodrine. DC IV fluids and observe blood pressure.
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
� Hold home steroid doses
� Start IV hydrocortisone 50mg every 8hr. Continue with Florinef. Probably will start decreasing dose next 24 hours
# Depression
� Continue escitalopram
#Moderate stool burden
-senna/colace
#Insomnia
Continue with melatonin, magnesium and doxepin added
Code: Full
DVT: SCDs
Anticipated Discharge: 24 - 48 hours
Subjective/Interval History
-
Date of Service: July 03, 2025
feeling better
no nausea-tolerating diet
no lightheadedness
Objective Data
-
Labs:
Laboratory Results
07/03/25
05:50
WBC 9.9
Hgb 11.5 L
Hct 33.6 L
Plt Count 227 D
Sodium 137
Potassium 4.0
Chloride 111 H
Carbon Dioxide 21 L
BUN 7
Creatinine 0.5 L
Glucose 111 H
Calcium 8.1 L
Total Bilirubin 0.6
AST 23
ALT 25
Alkaline Phosphatase 45
Vital Signs:
Vital Signs
Temp Pulse Resp BP Pulse Ox
98.0 F 76 16 102/71 95
07/03/25 08:09 07/03/25 09:19 07/03/25 09:19 07/03/25 09:21 07/03/25 10:15
I&O
07/02/25 07/03/25 07/04/25
06:59 06:59 06:59
Intake Total 480 / 480
Balance 480 / 480
Data Reviewed
-
Total Time Spent with Patient (in minutes): 55
--- NOTE | 2025-07-03 16:12 | CM ---
I.A: Completed By FELI Lopez.
Patient lives in a [facility] with her disable son with 0 STI and 13 STI. DME: None, No VN/PT, No STR, No Outpatient.
PCP: Dr. Nika Patton
Pharm: [facility]
Patient has transport when ready. PLAN: Anticipate Home No Needs.
[2025-07-03] MEDS: TYLENOL 650 MG PO (16:39)
[2025-07-03] MEDS: LOVENOX 40 MG SC (17:44)
[2025-07-03] MEDS: FLORINEF 0.05 MG PO (17:44)
[2025-07-03] MEDS: SENOKOT-S 1 TABLET PO (19:59)
[2025-07-03] MEDS: MELATONIN 10 MG PO (22:24)
[2025-07-03] MEDS: MAGNESIUM OXIDE 200 MG PO (22:24)
[2025-07-03] MEDS: SINEQUAN 10 MG PO (22:25)
[2025-07-03] MEDS: ANESTHETIC LOZENGE 1 LOZENGE PO (22:27)
[2025-07-04] VITALS (10 sets, daily range): BP systolic 76–127; BP diastolic 46–75
[2025-07-04] MEDS: SOLU-CORTEF 50 MG IV ×3 (01:46→21:44)
[2025-07-04 06:30] LABS: Hematocrit 32.2 % (37.0-47.0); Hemoglobin 10.9 g/dL (12.0-16.0); Mean Corp Hgb Conc. 33.9 g/dL (33.0-37.0); Mean Corpuscular Volume 88.0 fL (81.0-99.0); Nucleated Red Blood Cells % 0 %; Platelet Count 234 10^3/uL (130-400); Red Cell Dist. Width 13.2 % (11.5-14.5)
[2025-07-04 07:12] LABS: ALT (SGPT) 22 U/L (0-35); AST (SGOT) 20 U/L (14-36); Albumin 3.2 g/dl (3.5-5.0); Alkaline Phosphatase 53 U/L (38-126); Blood Urea Nitrogen 5 mg/dl (7-17); Calcium 8.4 mg/dl (8.4-10.2); Carbon Dioxide 25 mmol/L (22-30); Chloride 110 mmol/L (98-107); Estimated Creatinine Clearance 91 ml/min; Glucose 104 mg/dl (70-99); Potassium 3.5 mmol/L (3.5-5.1); Sodium 140 mmol/L (135-145); Total Protein 5.3 g/dl (6.3-8.2); eGFR > 60.00
[2025-07-04] MEDS: SENOKOT-S 1 TABLET PO (08:18)
[2025-07-04] MEDS: LEXAPRO 5 MG PO (08:18)
[2025-07-04] MEDS: TYLENOL 650 MG PO ×2 (08:22→22:55)
[2025-07-04] MEDS: ANESTHETIC LOZENGE 1 LOZENGE PO ×2 (08:27→18:49)
--- NOTE | 2025-07-04 09:05 | PTCARENOTE ---
Patient received from plate printer. Patient resting comfortably in bed. AAO, VSS. No events noted overnight. No complaints of pain at this time. Patient is tele level of care, awaiting no room as discharge likely tomorrow. No testing scheduled
at this time. Call eubanks in reach.
[2025-07-04] MEDS: XANAX 0.25 MG PO ×2 (09:55→21:42)
--- NOTE | 2025-07-04 11:19 | W.PN.HOSP.TC ---
Today's Communication/Plan
-
Decrease IV steroids
Check for RSV found to be negative
Monitor symptoms
Blood cultures remain negative
Assessment / Plan
Assessment / Plan
General: Conversant and Poor Appetite
HEENT: NormoCephalic
Respiratory: Clear
Cardiac: S1/S2 and Regular Rhythm
GI: Soft, Non Tender and Non Distended
Musculoskeletal: No Clubbing and No Edema
Skin: Warm and Dry
Neuro: Awake, Alert and Oriented
Psych: Calm
#Fever
#Leukocytosis likely reactive
#Lactic acidosis
� COVID/flu/mono/strep negative RSV negative/
- CXR negative for acute infiltrate.
- CT abdomen unremarkable except for moderate stool burden
- Elevated white count 15.5 on admission which is down trended
� Lactic acidosis resolved
� UA unremarkable
- Symptomatic treatment such as Tylenol and IV Zofran
� Preliminary blood cultures are negative. Remains afebrile. Lozenges for sore throat
#Hypotension
� Improvement in blood pressure. DC midodrine. DC IV fluids and observe blood pressure.
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
� Hold home steroid doses
� Start IV hydrocortisone 50mg every 8hr will decrease to every 12. Continue with Florinef. Probably will start decreasing dose next 24 hours
# Depression
� Continue escitalopram
#Moderate stool burden
-senna/colace
#Insomnia
Continue with melatonin, magnesium and doxepin added
Code: Full
DVT: SCDs
Anticipated Discharge: Within 24 hours
Subjective/Interval History
-
Date of Service: July 04, 2025
States of increasing dry cough overnight in the sleep
States of nasal congestion
States of sore throat
Remains afebrile
Was anxious earlier today
Objective Data
-
Labs:
Laboratory Results
07/04/25
05:37
WBC 10.9 H
Hgb 10.9 L
Hct 32.2 L
Plt Count 234
Sodium 140
Potassium 3.5
Chloride 110 H
Carbon Dioxide 25
BUN 5 L
Creatinine 0.6
Glucose 104 H
Calcium 8.4
Total Bilirubin 0.4
AST 20
ALT 22
Alkaline Phosphatase 53
Vital Signs:
Vital Signs
Temp Pulse Resp BP Pulse Ox
98.6 F 61 16 93/69 99
07/04/25 07:45 07/04/25 06:00 07/03/25 09:19 07/04/25 04:03 07/04/25 06:36
I&O
07/03/25 07/04/25 07/05/25
06:59 06:59 06:59
Intake Total 480 / 480
Balance 480 / 480
[2025-07-04] MEDS: TESSALON PERLES 200 MG PO ×2 (13:07→18:52)
--- NOTE | 2025-07-04 15:50 | CM ---
F/U: Patient will have decrease IV steroids, RSV found to be negative, so still monitoring symptoms. PLAN: Anticipate Home No Needs
--- NOTE | 2025-07-04 16:27 | PTCARENOTE ---
Report called to Cynthia GALLEGOS [address] [place].
[2025-07-04] MEDS: FLORINEF 0.05 MG PO (17:13)
[2025-07-04] MEDS: LOVENOX 40 MG SC (17:13)
[2025-07-04] MEDS: SENOKOT-S PO (21:43)
[2025-07-04] MEDS: MELATONIN PO (21:51)
[2025-07-04] MEDS: MAGNESIUM OXIDE PO (21:51)
[2025-07-04] MEDS: SINEQUAN 10 MG PO (21:53)
[2025-07-04] MEDS: ROBITUSSIN DM 5 ML PO (22:54)
[2025-07-04] MEDS: BENADRYL 25 MG PO (22:55)
[2025-07-04] MEDS: NSS 1000 IV (22:57)
[2025-07-04] MEDS: OCEAN, SALINE MIST 2 SPRAYS NASAL (23:00)
--- NOTE | 2025-07-04 23:00 | PTCARENOTE ---
Pt complained of congestion, migraine, and cough. This RN notified ACQUISITION MARKETING COORDINATOR hvac installation technician, [employer] Support [employer] came to assess and speak with pt. ACQUISITION MARKETING COORDINATOR ordered Sputum sample, IV fluids, Robitussin, Benadryl and Taney Nasal spray. This Rn administered and will continue with care
plan.
[2025-07-05 03:27] VITALS: BP 94/62
[2025-07-05] MEDS: BENADRYL 25 MG PO ×2 (03:35→08:45)
[2025-07-05] MEDS: ROBITUSSIN DM 5 ML PO ×5 (03:36→22:06)
[2025-07-05 07:00] VITALS: BP 94/53
[2025-07-05 08:28] LABS: Hematocrit 32.2 % (37.0-47.0); Hemoglobin 11.1 g/dL (12.0-16.0); Mean Corp Hgb Conc. 34.5 g/dL (33.0-37.0); Mean Corpuscular Volume 86.6 fL (81.0-99.0); Nucleated Red Blood Cells % 0 %; Platelet Count 268 10^3/uL (130-400); Red Cell Dist. Width 13.2 % (11.5-14.5)
[2025-07-05] MEDS: SOLU-CORTEF 50 MG IV ×2 (08:44→20:24)
[2025-07-05] MEDS: LEXAPRO 5 MG PO (08:45)
[2025-07-05] MEDS: TYLENOL 650 MG PO (08:45)
[2025-07-05] MEDS: SENOKOT-S 1 TABLET PO (08:45)
[2025-07-05 09:55] LABS: ALT (SGPT) 18 U/L (0-35); AST (SGOT) 16 U/L (14-36); Albumin 3.2 g/dl (3.5-5.0); Alkaline Phosphatase 50 U/L (38-126); Blood Urea Nitrogen 4 mg/dl (7-17); Calcium 7.9 mg/dl (8.4-10.2); Carbon Dioxide 30 mmol/L (22-30); Chloride 105 mmol/L (98-107); Estimated Creatinine Clearance 91 ml/min; Glucose 88 mg/dl (70-99); Potassium 3.2 mmol/L (3.5-5.1); Sodium 140 mmol/L (135-145); Total Protein 5.4 g/dl (6.3-8.2); eGFR > 60.00
[2025-07-05] MEDS: KCL ELIXIR 40 MEQ PO (11:38)
--- NOTE | 2025-07-05 13:31 | W.PN.HOSP.TC ---
Today's Communication/Plan
-
steroids q12h for now
monitor fever curve
dc IVF later today
Assessment / Plan
Assessment / Plan
General: Conversant
HEENT: NormoCephalic
Respiratory: Clear
Cardiac: S1/S2 and Regular Rhythm
GI: Soft, Non Tender and Non Distended
Musculoskeletal: No Clubbing and No Edema
Skin: Warm and Dry
Neuro: Awake, Alert and Oriented
Psych: Calm
#Fever
#Leukocytosis likely reactive
#Lactic acidosis
� COVID/flu/mono/strep negative RSV negative/
- CXR negative for acute infiltrate.
- CT abdomen unremarkable except for moderate stool burden
- Elevated white count 15.5 on admission which is down trended
� Lactic acidosis resolved
� UA unremarkable
- Symptomatic treatment
� Preliminary blood cultures are negative. Remains afebrile. Lozenges for sore throat. Throat culture negative.
#Hypotension
� Improvement in blood pressure. DC midodrine. DC IV fluids and observe blood pressure.
#[place]'s disease suspected crisis
� Hold home steroid doses
� Start IV hydrocortisone 50mg every 8hr will decrease to every 12. Continue with Florinef. Probably will start decreasing dose next 24 hours
# Depression
� Continue escitalopram
#Moderate stool burden
-senna/colace
#Hypokalemia
-replete/monitor
#Insomnia
Continue with melatonin, magnesium and doxepin added
Code: Full
DVT: lovenox
Anticipated Discharge: Within 24 hours
Subjective/Interval History
-
Date of Service: July 05, 2025
overnight events noted
spiked fever
feeling better this morning
no headache
states of sore throat.
Objective Data
-
Labs:
Laboratory Results
07/05/25
07:52
WBC 9.6
Hgb 11.1 L
Hct 32.2 L
Plt Count 268
Sodium 140
Potassium 3.2 L
Chloride 105
Carbon Dioxide 30
BUN 4 L
Creatinine 0.6
Glucose 88
Calcium 7.9 L
Total Bilirubin 0.5
AST 16
ALT 18
Alkaline Phosphatase 50
Vital Signs:
Vital Signs
Temp Pulse Resp BP Pulse Ox
98.4 F 67 20 94/53 98
07/05/25 07:00 07/05/25 07:00 07/05/25 07:00 07/05/25 07:00 07/05/25 08:00
I&O
07/04/25 07/05/25 07/06/25
06:59 06:59 06:59
Intake Total 520 / 520
Balance 520 / 520
[2025-07-05] MEDS: ANESTHETIC LOZENGE 1 LOZENGE PO (16:24)
[2025-07-05 16:26] VITALS: BP 97/57
[2025-07-05] MEDS: LOVENOX 40 MG SC (18:04)
[2025-07-05] MEDS: FLORINEF 0.05 MG PO (18:05)
[2025-07-05] MEDS: SENOKOT-S PO (20:13)
[2025-07-05] MEDS: MAGNESIUM OXIDE PO (20:16)
[2025-07-05] MEDS: SINEQUAN PO (20:16)
[2025-07-05] MEDS: MELATONIN PO (20:16)
[2025-07-05] MEDS: TESSALON PERLES 200 MG PO (22:06)
[2025-07-05] MEDS: XANAX 0.25 MG PO (22:06)
[2025-07-05 23:00] VITALS: BP 108/67
[2025-07-06 07:00] VITALS: BP 113/70
[2025-07-06] MEDS: LEXAPRO 5 MG PO (07:24)
[2025-07-06] MEDS: TYLENOL 650 MG PO (07:24)
[2025-07-06] MEDS: SOLU-CORTEF 50 MG IV (07:25)
[2025-07-06] MEDS: SENOKOT-S PO (07:27)
[2025-07-06] MEDS: ROBITUSSIN DM 5 ML PO (07:29)
[2025-07-06] MEDS: TESSALON PERLES 200 MG PO (07:30)
--- NOTE | 2025-07-06 10:54 | W.PN.HOSP.TC ---
Today's Communication/Plan
-
dc home later today
prednisone taper regimen
Assessment / Plan
Assessment / Plan
General: Conversant
HEENT: NormoCephalic
Respiratory: Clear
Cardiac: S1/S2 and Regular Rhythm
GI: Soft, Non Tender and Non Distended
Musculoskeletal: No Clubbing and No Edema
Skin: Warm and Dry
Neuro: Awake, Alert and Oriented
Psych: Calm
#Fever
#Leukocytosis likely reactive
#Lactic acidosis
� COVID/flu/mono/strep negative RSV negative/
- CXR negative for acute infiltrate.
- CT abdomen unremarkable except for moderate stool burden
- Elevated white count 15.5 on admission which is down trended
� Lactic acidosis resolved
� UA unremarkable
- Symptomatic treatment
� Blood cultures remains negative. Remains afebrile. Lozenges for sore throat. Throat culture negative.
#Hypotension
� Improvement in blood pressure. DC midodrine. DC IV fluids and observe blood pressure.
#[place]'s disease suspected crisis (hypotension, nausea, lethargy, possibly causign fever)
� Hold home steroid doses
� Start IV hydrocortisone 50mg every 8hr will decrease to every 12. Continue with Florinef. prednisone taper regimen on discharge.
-afebrile >24h.
# Depression
� Continue escitalopram
#Moderate stool burden
-senna/colace
#Hypokalemia
-replete/monitor
#Insomnia
Code: Full
DVT: lovenox
More than 30 minutes spent in discharge including
Final examination of the patient
Summarizing hospital stay
Instructions for continuing care to all relevant caregivers
Preparation of discharge records, prescriptions, and referral forms
Total time spent (in minutes): 55
Anticipated Discharge: Today
Subjective/Interval History
-
Date of Service: July 06, 2025
states of intermittent nasal congestion
Objective Data
-
Vital Signs:
Vital Signs
Temp Pulse Resp BP Pulse Ox
99.3 F 75 20 113/70 96
07/06/25 07:00 07/06/25 07:00 07/06/25 07:00 07/06/25 07:00 07/06/25 07:00
I&O
07/05/25 07/06/25 07/07/25
06:59 06:59 06:59
Intake Total 520 / 520 1200 / 1200
Balance 520 / 520 1200 / 1200
--- NOTE | 2025-07-06 12:52 | W.DCSUMMARY ---
Discharge Summary
Discharge Data
Date of Admission: 07/02/25
Date of Discharge: 07/06/25
-
Pending Results: No
Hospital Course
59-year-old female past medical history of [place] disease who is presenting from home with fevers and weakness. Patient was also complaining of lightheadedness, nausea, abdominal pain. Patient had subjective and objective fever. Patient
infectious workup was found to be negative including flu , COVID, mono, RSV and blood cultures. Patient continued to remain afebrile. Patient was started on IV stress dose steroid which was eventually weaned off and will be transition to p.o.
steroids on discharge. Cortisol level was significantly low on admission. Patient blood pressure improved. Patient was tolerating diet. Patient without lightheaded or dizziness. Stated of some sore throat and strep antigen and cultures were
negative. Monoscreen was negative. Patient was tolerating diet. IV fluid was discontinued. Patient be discharged home with prednisone taper and outpatient primary doctor follow-up
Discharge Plan
-
Patient Disposition: Home (Routine Discharge)
Discharge Diagnosis/Procedures: #Fever
#Leukocytosis likely reactive
#Lactic acidosis
#Hypotension
#[place]'s disease suspected crisis
Condition: Fair
Diet: Regular
Activity: As tolerated
Driving Restrictions: As prior to admission
Activity Restrictions/Additional Instructions:
Follow up sputum culture results with your primary doctor.
Referrals:
Gege Patton DO [Family Provider, Family Practice] - in less than 1 week
Prescriptions:
New
benzonatate 100 mg Capsule
200 mg PO TIDPRN PRN (Reason: severe cough) Qty: 20 0RF
prednisone 10 mg Tablet
See Rx Instructions .ROUTE .COMPLEX Qty: 20 0RF
Rx Instructions:
Take By Mouth:
40 mg daily x2 days, 30 mg daily x2 days,
20 mg daily x2 days, 10 mg daily x2 days.
Continued
escitalopram oxalate 5 mg Tablet
5 mg PO DAILY
melatonin 10 mg Tablet
10 mg PO HS
fludrocortisone 0.1 mg Tablet
0.05 mg PO QPM
estradiol 0.01 % (0.1 mg/gram) Cream
1 applic VAGINAL MOFR
magnesium oxide 200 mg magnesium Tablet
200 mg PO HS
Held
hydrocortisone 10 mg Tablet
15 mg PO DAILY
Hold Instructions: Resume on 07/15/25.
hydrocortisone 10 mg Tablet
5 mg PO QPM
Hold Instructions: Resume on 07/15/25.
Discharge Orders:
Discharge Patient (As Directed); Ordered 07/06/25
Ordered By: Matheus Owen
Discharge Date and Time
Print Language: LAO
--- NOTE | 2025-07-06 13:08 | CM ---
Met with patient at bedside; she reported son-in-law will provide transport home
Plan: Discharge to home today; no needs
== END 2025-07-06 13:51 | disposition home or self-care (01) | DRG 644 ==
LOC: 2 NORTH 13:48
PROVIDERS: Physician Assistant; Student in an Organized Health Care Education/Training Program; ADMITTING PHYSICIAN Hospitalist; EMERGENCY PHYSICIAN Emergency Medicine; FAMILY PHYSICIAN Family Medicine
DX: E27.2 Addisonian crisis (principal); E87.20 Acidosis, unspecified; E27.1 Primary adrenocortical insufficiency; F32.A Depression, unspecified; G47.00 Insomnia, unspecified; E87.6 Hypokalemia; N95.2 Postmenopausal atrophic vaginitis; E78.5 Hyperlipidemia, unspecified; N30.10 Interstitial cystitis (chronic) without hematuria; Z88.0 Allergy status to penicillin; G50.0 Trigeminal neuralgia; Z79.52 Long term (current) use of systemic steroids; Z80.3 Family history of malignant neoplasm of breast; Z11.52 Encounter for screening for COVID-19
CPT/HCPCS: 71045; 74177; 80053; 81003; 81015; 82533; 83605; 83690; 85025; 86308; 87040; 87070; 87077; 87185; 87205; 87502; 87807; 87811; 87880; 96361; 96374; 96375; 99285; Q9967